=== PATIENT | male | born 1935 | race Caucasian/White ===

== ENCOUNTER → 2016-06-03 | Outpatient (CLI) | payer OTHER ==
[~2016-06-03] MED LIST: ALL300 PO; AMLO10TA4 PO; AMR2 PO; ASPI81TA21 PO; ATEN100T8 PO; DOXA2TAB PO; GLC500 PO; INSDGI SC; MAGNTAB17 PO; VALS320T PO
[2016-06-03 14:40] LABS: BASO % 0.4 %; BASO ABS # 0.05 K/uL (0-0.2); COMPLETE YES; EOS % 3.4 %; HEMATOCRIT 42.4 % (42-52); IG% 0.9 %; LYMPH % 18.1 %; LYMPH ABS # 2.34 K/uL (1.2-3.4); MEAN CELL VOLUME 89.3 fL (80-100); MEAN CORPUSCULAR HEMOGLOBIN 29.1 pg (25-34); MEAN CORPUSCULAR HGB CONC 32.5 g/dl (32-36); MONO % 7.3 %; NEUT % 69.9 %; PLATELET COUNT 218 K/uL (130-400); RED BLOOD COUNT 4.75 M/uL (4.7-6.1); WHITE BLOOD COUNT 12.93 K/uL (4.8-10.8)
[2016-06-03 14:58] LABS: ESTIMATED AVERAGE GLUCOSE 163 mg/dl; HA1C FLAG Normal (Normal)
[2016-06-03 15:20] LABS: AST/SGOT 22 U/L (15-37); BLOOD UREA NITROGEN 23 mg/dl (7-18); BUN/CREATININE RATIO 17.5 (10-20); CALCIUM 9.4 mg/dl (8.5-10.1); CARBON DIOXIDE 28 mmol/L (21-32); CHLORIDE 103 mmol/L (98-107); GLUCOSE 197 mg/dl (70-99); POTASSIUM 4.4 mmol/L (3.5-5.1); SODIUM 138 mmol/L (136-145); TRIGLYCERIDES 211 mg/dl (0-150); VERY LOW DENSITY LIPOPROT CALC 42 mg/dl
[2016-06-03 15:23] LABS: URINE PROTIEN/CREAT RATIO 0.3 (0-0.2); URINE TOTAL PROTEIN 63.9 mg/dl (0-11.9)
[2016-06-03 15:48] LABS: ALB/GLOB RATIO 0.9 (0.9-2); ALKALINE PHOSPHATASE 67 U/L (45-117); ALT/SGPT 26 U/L (12-78); CHOLESTEROL 107 mg/dl (0-200); CHOLESTEROL/HDL RATIO 2.6; HDL CHOLESTEROL 41 mg/dl; LDL CHOLESTEROL CALCULATED 24 mg/dl; THYROID STIMULATING HORMONE 0.832 uIu/ml (0.300-4.500)
== END | disposition home or self-care (01) ==
LOC: C.LABBC 10:21
PROVIDERS: ATTEND Internal Medicine Geriatric Medicine
DX: E11.9 Type 2 diabetes mellitus without complications (principal); I10 Essential (primary) hypertension; R35.1 Nocturia; K76.0 Fatty (change of) liver, not elsewhere classified; D64.9 Anemia, unspecified; I45.6 Pre-excitation syndrome; R80.9 Proteinuria, unspecified

== ENCOUNTER → 2016-09-09 | Outpatient (CLI) | payer OTHER ==
[2016-09-09 12:29] LABS: BASO % 0.3 %; BASO ABS # 0.04 K/uL (0-0.2); COMPLETE YES; HEMATOCRIT 39.4 % (42-52); IG% 0.8 %; LYMPH % 18.4 %; MEAN CELL VOLUME 87.6 fL (80-100); MEAN CORPUSCULAR HEMOGLOBIN 28.7 pg (25-34); MEAN CORPUSCULAR HGB CONC 32.7 g/dl (32-36); MEAN PLATELET VOLUME 11.7 fL (7.4-10.4); MONO % 7.3 %; NEUT % 69.2 %; PLATELET COUNT 204 K/uL (130-400); WHITE BLOOD COUNT 11.43 K/uL (4.8-10.8)
[2016-09-09 12:35] LABS: ESTIMATED AVERAGE GLUCOSE 148 mg/dl; HA1C FLAG Normal (Normal)
[2016-09-09 13:06] LABS: ALT/SGPT 24 U/L (12-78); BLOOD UREA NITROGEN 21 mg/dl (7-18); CALCIUM 9.1 mg/dl (8.5-10.1); CARBON DIOXIDE 28 mmol/L (21-32); CHLORIDE 104 mmol/L (98-107); GLUCOSE 178 mg/dl (70-99); POTASSIUM 4.3 mmol/L (3.5-5.1); SODIUM 137 mmol/L (136-145)
[2016-09-09 13:15] LABS: ALKALINE PHOSPHATASE 64 U/L (45-117); AST/SGOT 24 U/L (15-37); FERRITIN 64.6 ng/ml (8.0-388.0); TOTAL IRON BINDING CAPACITY 311 mcg/dl (250-450)
--- NOTE | 2016-09-16 13:06 | CODING QUERY MEDICAL NECESSITY ---
SUPPORTING DIAGNOSIS NEEDED A supporting diagnosis is required for the test/procedure performed on this patient in order for us to be reimbursed by the patient's insurance. Please provide a supporting diagnosis for the following test/procedure listed below next to the test name along with your signature. *If there is no additional diagnosis for this patient that would support the following test/procedure please document that below next to the test/procedure. Test(s)/Procedure(s) that require a supporting diagnosis: * VITAMIN B12 DIAGNOSIS: Provider Signature: Date: Thank you Chrystal Onia [employer] Once completed, please kindly fax back to [phone] For questions please call [phone]
== END | disposition home or self-care (01) ==
LOC: C.LABPBG 11:02
PROVIDERS: ATTEND Internal Medicine Geriatric Medicine
DX: E11.9 Type 2 diabetes mellitus without complications (principal); I10 Essential (primary) hypertension; M10.9 Gout, unspecified; K76.0 Fatty (change of) liver, not elsewhere classified; D64.9 Anemia, unspecified; I48.91 Unspecified atrial fibrillation; R06.02 Shortness of breath; R39.15 Urgency of urination

== ENCOUNTER → 2016-11-18 | Outpatient (CLI) | payer OTHER | END | disposition home or self-care (01) | LOC: C.LABPBG 13:31 | PROVIDERS: ATTEND Urology | DX: N40.1 Benign prostatic hyperplasia with lower urinary tract symptoms (principal); R10.9 Unspecified abdominal pain ==

== ENCOUNTER → 2017-06-16 | Outpatient (CLI) | payer OTHER ==
[~2017-06-16] MED LIST changes: +ASPI-319 PO; -ASPI81TA21 PO
[2017-06-16 14:06] LABS: BASO % 0.4 %; BASO ABS # 0.04 K/uL (0-0.2); EOS % 4.5 %; EOS ABS # 0.45 K/uL (0-0.5); HEMATOCRIT 39.7 % (42-52); HEMOGLOBIN 13.3 g/dL (14.0-18.0); IG# 0.04 K/uL (0.00-0.02); LYMPH % 17.8 %; LYMPH ABS # 1.79 K/uL (1.2-3.4); MEAN CELL VOLUME 87.4 fL (80-100); MEAN CORPUSCULAR HEMOGLOBIN 29.3 pg (25-34); MEAN CORPUSCULAR HGB CONC 33.5 g/dl (32-36); MEAN PLATELET VOLUME 12.3 fL (7.4-10.4); MONO % 7.1 %; MONO ABS # 0.72 K/uL (0.11-0.59); NEUT % 69.8 %; NEUT ABS # 7.03 K/uL (1.4-6.5); PLATELET COUNT 197 K/uL (130-400); RED CELL DISTRIBUTION WIDTH CV 14.5 % (11.5-14.5); RED CELL DISTRIBUTION WIDTH SD 46.1 fL (36.4-46.3); WHITE BLOOD COUNT 10.07 K/uL (4.8-10.8)
[2017-06-16 14:21] LABS: HEMOGLOBIN A1C 6.7 % (4.5-5.6)
[2017-06-16 14:33] LABS: ALBUMIN 3.6 gm/dl (3.4-5.0); ALT/SGPT 28 U/L (12-78); AST/SGOT 28 U/L (15-37); BLOOD UREA NITROGEN 28 mg/dl (7-18); CALCIUM 8.8 mg/dl (8.5-10.1); CARBON DIOXIDE 25 mmol/L (21-32); CREATININE 1.36 mg/dl (0.60-1.40); GLUCOSE 127 mg/dl (70-99); POTASSIUM 4.1 mmol/L (3.5-5.1); SODIUM 137 mmol/L (136-145)
[2017-06-16 14:43] LABS: ALKALINE PHOSPHATASE 62 U/L (45-117); CHOLESTEROL 100 mg/dl (0-200); LDL CHOLESTEROL CALCULATED 32 mg/dl; TOTAL PROTEIN 7.3 gm/dl (6.4-8.2)
== END | disposition home or self-care (01) ==
LOC: C.LABPBG 11:10
PROVIDERS: ATTEND Internal Medicine Geriatric Medicine
DX: E11.9 Type 2 diabetes mellitus without complications (principal); I10 Essential (primary) hypertension; D64.9 Anemia, unspecified; K76.0 Fatty (change of) liver, not elsewhere classified; R80.9 Proteinuria, unspecified; G62.9 Polyneuropathy, unspecified; I48.91 Unspecified atrial fibrillation; I35.0 Nonrheumatic aortic (valve) stenosis; R19.5 Other fecal abnormalities; M79.606 Pain in leg, unspecified

== ENCOUNTER → 2017-06-24 | Outpatient (CLI) | payer OTHER ==
--- NOTE | 2017-06-24 15:24 | DIAGNOSTIC IMAGING REPORT ---
ULTRASOUND VENOUS DOPPLER LWR EXT BILA CLINICAL HISTORY: M79.60 bilateral lower extremity pain COMPARISON STUDY: No previous studies for comparison. FINDINGS: Real-time and color flow Doppler imaging were performed. Flow was seen within the femoral, popliteal and calf veins with no intraluminal thrombus demonstrated. The saphenous vein is patent. IMPRESSION: No evidence of lower extremity DVT. Electronically signed by: Sherman Chavez M.D. 06/24/2017 3:23 PM Dictated Date/Time: 06/24/2017 3:22 PM
--- NOTE | 2017-06-24 19:50 | DIAGNOSTIC IMAGING REPORT ---
ART DOP LOWER EXT BILAT HISTORY: 81 years-old Male M79.606 Pain, lower extremity acute pain of the right lower extremity COMPARISON: Venous Doppler study of same day TECHNIQUE: Multiple real-time significant images of the bilateral lower extremity arterial structures were obtained assessing grayscale appearance, color and spectral flow FINDINGS: RIGHT: Triphasic waveforms are noted within the common femoral, profunda femoris, superficial femoral, popliteal, posterior tibial and anterior tibial arteries. Blunted biphasic waveforms are seen within the peroneal artery with biphasic flow seen within the dorsalis pedis artery. No vessel occlusion or significantly elevated peak systolic velocities identified. LEFT: Patent triphasic waveforms are noted within the common femoral, profunda femoris, and superficial femoral arteries. Mildly blunted triphasic waveforms within the popliteal artery. Mildly blunted biphasic waveforms within the posterior tibial artery. Triphasic waveforms within the anterior tibial artery. Blunted biphasic waveforms of the peroneal artery with triphasic flow within the dorsalis pedis artery. No evidence of vessel occlusion. Elevated peak systolic velocities within the dorsalis pedis artery measuring up to 150 cm/s. IMPRESSION: 1. Triphasic waveforms are seen above the level of the knees bilaterally. 2. Elevated peak systolic velocities about the left dorsalis pedis artery suggests underlying peripheral vascular disease. 3. No evidence of arterial occlusion. The above report was generated using voice recognition software. It may contain grammatical, syntax or spelling errors. Electronically signed by: Joe Barkley M.D. 06/24/2017 7:49 PM Dictated Date/Time: 06/24/2017 7:43 PM
== END | disposition home or self-care (01) ==
LOC: C.ULTR 13:43
PROVIDERS: ATTEND Internal Medicine Geriatric Medicine
DX: M79.606 Pain in leg, unspecified (principal)

== ENCOUNTER 2018-06-10 11:50 | Observation (INO) ==
[2018-06-10] MEDS ORDERED: ASPIRIN CHEW 324 MG PO STA (12:08)
[2018-06-10 12:52] LABS: Basophils # (auto) 0.04 K/uL (0-0.2); Basophils % (auto) 0.3 %; Hemoglobin 12.8 g/dL (14.0-18.0); Immature Granulocytes # (auto) 0.06 K/uL (0.00-0.02); Immature Granulocytes % (auto) 0.5 %; Lymphocytes # (auto) 1.84 K/uL (1.2-3.4); Lymphocytes % (auto) 14.8 %; Mean Corpuscular Hgb Conc 32.8 g/dL (32-36); Mean Corpuscular Volume 84.6 fL (80-100); Monocytes # (auto) 0.79 K/uL (0.11-0.59); Monocytes % (auto) 6.4 %; Neutrophils # (auto) 9.21 K/uL (1.4-6.5); Platelet Count 228 K/uL (130-400); RDW Coefficient of Variation 15.7 % (11.5-14.5); RDW Standard Deviation 48.5 fL (36.4-46.3); Red Blood Count 4.61 M/uL (4.7-6.1); White Blood Count 12.44 K/uL (4.8-10.8)
--- NOTE | 2018-06-10 12:54 | XRay Report ---
XR chest 1V portable CLINICAL HISTORY: Chest Pain dyspnea COMPARISON STUDY: 06/21/2012 FINDINGS: Moderate cardiomegaly. Prominent pulmonary vasculature. Unchanging parenchymal prominence l bonny bases. IMPRESSION: Cardiomegaly with findings of developing congestive heart failure The above report was generated using voice recognition software. It may contain grammatical, syntax or spelling errors. Electronically signed by: Ld Okeefe M.D. 06/10/2018 12:52 PM
[2018-06-10 13:08] LABS: Appearance Urine Clear (Clear); Bacteria Urine Automated Negative (Negative); Bilirubin Urine Negative (Negative); Blood Urine Negative (Negative); Color Urine Dark Yellow; Epithelial Cell Urine Auto >30 /lpf (0-5); Glucose Urine UA Negative (Negative); Ketones Urine Trace (Negative); Leukocyte Esterase Urine Negative (Negative); Nitrite Urine Negative (Negative); Protein Urine Trace (Negative); RBC Urine Automated 0-4 /hpf (0-4); Specific Gravity Urine 1.024 (1.000-1.030); Urobilinogen Urine Negative (Negative); pH Urine 5.5 (4.5-7.5)
[2018-06-10 13:09] LABS: INR 1.1 (0.9-1.1); Partial Thromboplastin Ratio 0.9; Partial Thromboplastin Time 24.6 Seconds (21.0-31.0); Prothrombin Time 10.8 Seconds (9.0-12.0)
[2018-06-10 13:14] LABS: Alanine Aminotransferase 22 U/L (12-78); Albumin Level 3.7 gm/dl (3.4-5.0); Aspartate Aminotransferase 25 U/L (15-37); BUN Creatinine Ratio 16.8 (10-20); Blood Urea Nitrogen 28 mg/dl (7-18); Calcium 9.6 mg/dl (8.5-10.1); Carbon Dioxide 27 mmol/L (21-32); Chloride 105 mmol/L (98-107); Est GFR (African American) 44.5; Est GFR (Non-African American) 38.4; Glucose 112 mg/dl (70-99); Potassium 4.6 mmol/L (3.5-5.1); Sodium 138 mmol/L (136-145)
[2018-06-10 13:19] LABS: Albumin Globulin Ratio 0.9 (0.9-2); Alkaline Phosphatase 73 U/L (45-117); Bilirubin,Total 0.7 mg/dl (0.2-1); Globulin 4.1 gm/dl (2.5-4.0); Total Protein 7.8 gm/dl (6.4-8.2)
--- NOTE | 2018-06-10 14:36 | History & Physical Report ---
Date of Service June 10, 2018 Assessment & Plan (1) Severe aortic stenosis: Patient is to be aortic stenosis per Dr. Morris with a valve area of 0.8 cm. His dyspnea could be associate with his valve. It is also unclear whether he had any ischemic work-up in the past. Renal will be consulted troponins will be trended 1 dose of Lasix 20 mg will be given supplemental oxygen Given the new onset left bundle branch block consideration for stress testing will be the discretion of Dr. Morris (2) Diabetes: Patient to continue basal bolus insulin he was oral hypoglycemic agents will be stopped which include glimepiride and metformin (3) Paroxysmal A-fib: Patient has a history of Parkinson White with ablation he typically is rate controlled with atenolol did not seem to be formally anticoagulated this time (4) Dyslipidemia: pt typically takes atorvostatin (5) COPD (chronic obstructive pulmonary disease): pt will remain on symbicort, his copd may also impact his dyspnea on exertion (6) BPH (benign prostatic hyperplasia): pt is without lower urinary symptoms, doxasin and finestaride (7) DVT prophylaxis: heparin sc History of Present Illness Primary Care Provider: Ezio Thao MD Patient presents emergency department with increased dyspnea on exertion. He presented to his primary care doctor's office where he complained of this complaint and had a new left bundle branch block seen on EKG. he was transferred to the ER for concerns of this being ischemic or in origin. The patient fortunately has been following with Dr. Morris for evaluation of aortic stenosis as he is a valvular area of 0.8 cm. Most recent echo from April of this year. Son is present and states that his dyspnea is increased of late. Chest x-ray confirms pulmonary edema, the patient denies having any recent chest pain or syncopal episodes. Allergies Allergy/AdvReac Type Severity Reaction Status Date / Time Iodinated Contrast- Oral and Allergy Unknown HIVES Verified 06/10/18 13:05 IV Dye Home Medications Home Medications Medication Instructions Recorded Confirmed Type amlodipine 10 mg PO DAILY 06/10/18 06/10/18 History aspirin [Aspir-81] 81 mg PO DAILY 06/10/18 06/10/18 History atenolol 100 mg PO DAILY 06/10/18 06/10/18 History atorvastatin 10 mg PO DAILY 06/10/18 06/10/18 History budesonide-formoterol [Symbicort] 1 puff INHALATION BID 06/10/18 06/10/18 History doxazosin 2 mg PO DAILY 06/10/18 06/10/18 History ergocalciferol (vitamin D2) 50,000 unit PO DAILY 06/10/18 06/10/18 History [Vitamin D2] finasteride 5 mg PO DAILY 06/10/18 06/10/18 History fluticasone propionate 2 spray INTRANASAL DAILY 06/10/18 06/10/18 History glimepiride 4 mg PO DAILY 06/10/18 06/10/18 History insulin glargine [Basaglar KwikPen 1 dose SUBCUT UD 06/10/18 06/10/18 History U-100 Insulin] metformin 1,000 mg PO DAILY 06/10/18 06/10/18 History Past Med/Surg History Medical History Kujnr-Xyckmvmfk-Mared (WPW) pattern (Chronic) BPH (benign prostatic hyperplasia) COPD (chronic obstructive pulmonary disease) Diabetes Dyslipidemia Paroxysmal A-fib Severe aortic stenosis Family History Unknown Cancer Social History Feels Safe at Home: Yes Smoking Status: Never smoker Review of Systems Review of Systems: ROS: well nourished well developed. Morbidly obese No double vision blurry vision No problems with speech or swallowing No palpitations, chest pain or pressure No Wheezing reproducible dyspnea on exertion No abdominal pain nausea vomiting diarrhea No burning urine urine frequency or changes in color No focal joint pain or muscle pain No skin rashes or oral lesions No unusual bruising or bleeding No focused back pain or numbness or loss of strength No changes in memory or confusion Physical Exam Physical Exam: The patient appeared well nourished and normally developed. Vital signs as documented. Head exam is unremarkable. normocephalic, atraumatic Neck is with minor jugular venous distension, thyromegaly, or lymphademopathy Lungs are bibasilar crackles are heard Cardiac exam reveals a soft ejection murmur is heard. First and second heart sounds normal. Abdominal exam reveals normal bowel sounds, no masses, no organomegaly Extremities are minorly edematous and both pedal pulses are present Neurologic exam is A&Ox3, no focal deficits, strength is equal bilateral Psychologically seems neither anxious or depressed Skin is warm Dry without bruises or lesions Results & Data Vital Signs (Past 12 Hours) Vital Signs Temp Pulse Resp BP Pulse Ox 06/10/18 13:32 78 21 110/78 95 06/10/18 13:30 64 20 96 06/10/18 13:01 75 15 95/72 L 96 06/10/18 13:00 76 14 96 06/10/18 12:57 95 06/10/18 12:34 75 23 107/69 97 06/10/18 12:32 73 16 06/10/18 12:09 72 20 96 06/10/18 12:06 72 18 98 06/10/18 12:01 79 17 140/82 97 06/10/18 11:57 37.6 C H 76 16 140/82 96 Diagnostic Findings Cardiomegaly with findings of developing congestive heart failure ECG with Afib LBBB
[2018-06-10] MEDS ORDERED: GLUCOSE 10 TABS/TUBE PO PRN (16:00)
[2018-06-10] MEDS ORDERED: GLUCAGON FOR INJ 1 MG VIAL SQ PRN (16:00)
[2018-06-10] MEDS ORDERED: CARBOHYDRATES FOR HYPOGLYCEMIA PO PRN (16:00)
[2018-06-10] MEDS ORDERED: ACETAMINOPHEN 325 MG TAB PO PRN (16:00)
[2018-06-10] MEDS ORDERED: NITROGLYCERIN SL 0.4 MG/TAB TAB SL PRN (16:00)
[2018-06-10] MEDS ORDERED: GLUCOSE 40% GEL 15 GM TUBE PO PRN (16:00)
[2018-06-10] MEDS ORDERED: ONDANSETRON INJ 2 MG/ML 2 ML VIAL IV PRN (16:00)
[2018-06-10] MEDS ORDERED: ALUMINUM/MAGNESIUM SUSP 30 ML UDC PO PRN (16:00)
[2018-06-10] MEDS ORDERED: DEXTROSE 50% 50 ML SYRINGE IV PRN (16:00)
[2018-06-10] MEDS ORDERED: FUROSEMIDE 20 MG in SYRINGE 0 ML IV ONE (16:15)
--- NOTE | 2018-06-10 16:49 | Emergency Department Note ---
Entered by Aurea Head acting as a scribe for Keegan Berg DO History of Present Illness General Chief complaint: Chest Pain Stated complaint: HEART Source: patient History of Present Illness Provider complaint: shortness of breath with exertion Onset (ago): week(s) (over the last couple of weeks) Location: chest Maximum Pain Intensity: 0 Quality: + other (shortness of breath ) Associated symptoms: + denies other symptoms (denies weight gain, abdominal pain, back pain, trouble with urination) and + diaphoresis; no chest pain and no fever/chills The patient is an 82 year old male who presents to the Emergency Department with complaints of shortness of breath with exertion over the last couple of weeks. The patient states that laying flat does not exacerbate his shortness of breath. He also reports having cold sweats over the last 2 weeks. The patient denies having chest pain, weight gain, back pain, abdominal pain, a fever, or trouble with urination. The patient states that he takes a baby aspirin every day and reports that he took one today. The patient states that he saw his doctor today and was referred here. The patient denies a history of a stress test or a heart catheterization. He states that he is not normally in atrial fibrillation. Home Medications Home Medications Medication Instructions Recorded Confirmed Type amlodipine 10 mg PO DAILY 06/10/18 06/10/18 History aspirin [Aspir-81] 81 mg PO DAILY 06/10/18 06/10/18 History atenolol 100 mg PO DAILY 06/10/18 06/10/18 History atorvastatin 10 mg PO DAILY 06/10/18 06/10/18 History budesonide-formoterol [Symbicort] 1 puff INHALATION BID 06/10/18 06/10/18 History doxazosin 2 mg PO DAILY 06/10/18 06/10/18 History ergocalciferol (vitamin D2) 50,000 unit PO Q7D 06/10/18 06/10/18 History [Vitamin D2] finasteride 5 mg PO DAILY 06/10/18 06/10/18 History fluticasone propionate 2 spray INTRANASAL DAILY 06/10/18 06/10/18 History glimepiride 4 mg PO DAILY 06/10/18 06/10/18 History insulin glargine [Basaglar KwikPen 22 units SUBCUT UD 06/10/18 06/10/18 History U-100 Insulin] metformin 1,000 mg PO DAILY 06/10/18 06/10/18 History Allergies Allergy/AdvReac Type Severity Reaction Status Date / Time Iodinated Contrast- Oral and Allergy Unknown HIVES Verified 06/10/18 13:05 IV Dye Past Med/Surg History Medical History Pdfhs-Zjxavlysm-Hyaol (WPW) pattern (Chronic) BPH (benign prostatic hyperplasia) COPD (chronic obstructive pulmonary disease) Diabetes Dyslipidemia Paroxysmal A-fib Severe aortic stenosis Social History Feels Safe at Home: Yes Smoking Status: Never smoker Review of Systems See HPI for pertinent positives & negatives. and A total of 10 systems reviewed and were otherwise negative Physical Exam Vital Signs Vital Signs - 24 hr 06/10/18 11:57 06/10/18 12:01 06/10/18 12:05 Temperature 37.6 C H Temperature Source Oral Sepsis Recent Fever Within 48 Hours No Sepsis Action Taken by Nursing No Action Required Pulse Rate 76 79 Pulse Rate from SpO2 Sensor 74 Respiratory Rate 16 17 Respiratory Effort / Characteristics Non-Labored Non-Labored Respiratory Depth Normal Normal Respiratory Pattern Regular Blood Pressure 140/82 140/82 Blood Pressure Mean 101 101 Pulse Oximetry 96 97 Oxygen Delivery Method Room Air 06/10/18 12:06 06/10/18 12:09 06/10/18 12:32 Temperature Temperature Source Sepsis Recent Fever Within 48 Hours Sepsis Action Taken by Nursing Pulse Rate 72 72 73 Pulse Rate from SpO2 Sensor 69 Respiratory Rate 18 20 16 Respiratory Effort / Characteristics Respiratory Depth Respiratory Pattern Blood Pressure Blood Pressure Mean Pulse Oximetry 98 96 Oxygen Delivery Method Room Air 06/10/18 12:34 06/10/18 12:57 06/10/18 13:00 Temperature Temperature Source Sepsis Recent Fever Within 48 Hours Sepsis Action Taken by Nursing Pulse Rate 75 76 Pulse Rate from SpO2 Sensor 77 73 Respiratory Rate 23 14 Respiratory Effort / Characteristics Respiratory Depth Respiratory Pattern Blood Pressure 107/69 Blood Pressure Mean 81 Pulse Oximetry 97 95 96 Oxygen Delivery Method Room Air 06/10/18 13:01 06/10/18 13:30 06/10/18 13:32 Temperature Temperature Source Sepsis Recent Fever Within 48 Hours Sepsis Action Taken by Nursing Pulse Rate 75 64 78 Pulse Rate from SpO2 Sensor 74 62 78 Respiratory Rate 15 20 21 Respiratory Effort / Characteristics Respiratory Depth Respiratory Pattern Blood Pressure 95/72 L 110/78 Blood Pressure Mean 79 88 Pulse Oximetry 96 96 95 Oxygen Delivery Method Room Air Room Air 06/10/18 13:33 06/10/18 14:00 06/10/18 14:02 Temperature Temperature Source Sepsis Recent Fever Within 48 Hours Sepsis Action Taken by Nursing Pulse Rate 71 75 70 Pulse Rate from SpO2 Sensor 71 77 70 Respiratory Rate 23 19 17 Respiratory Effort / Characteristics Respiratory Depth Respiratory Pattern Blood Pressure 164/117 H Blood Pressure Mean 132 Pulse Oximetry 96 94 96 Oxygen Delivery Method 06/10/18 14:22 06/10/18 14:30 06/10/18 14:31 Temperature Temperature Source Sepsis Recent Fever Within 48 Hours Sepsis Action Taken by Nursing Pulse Rate 72 81 75 Pulse Rate from SpO2 Sensor 77 82 78 Respiratory Rate 19 20 16 Respiratory Effort / Characteristics Respiratory Depth Respiratory Pattern Blood Pressure 117/83 133/70 Blood Pressure Mean 94 91 Pulse Oximetry 97 98 98 Oxygen Delivery Method GENERAL: Patient is awake, alert, and in no acute distress.Patient is resting comfortably and showing no signs of anxiety EYES: The conjunctivae are clear. The pupils are round and reactive. EARS, NOSE, MOUTH AND THROAT: The nose is without any evidence of any deformity. Mucous membranes are moist.Tongue is midline NECK: The neck is nontender and supple. RESPIRATORY: Diminished at both bases. Rales at the left base. CARDIOVASCULAR: Irregular rhythm. No definite murmur. GASTROINTESTINAL: The abdomen is soft. Bowel sounds are present in all quadrants. Abdomen is nontender. MUSCULOSKELETAL/EXTREMITIES: There is no evidence of gross deformity. Full range of motion is noted in the hips and shoulders. SKIN: There is no obvious evidence of any rash. There are no petechiae, pallor or cyanosis noted. Pedal edema bilaterally. NEUROLOGIC: Patient is awake alert and oriented x3. Course 1207: The patient was evaluated in room C1B. A history and physical were performed. 1302: I reviewed the patient's note from the clinic. 1337: I discussed the patient's case with Dr. Camila Munson who will ev aluate the patient for further management. 1350: I updated the patient who verbalized agreement and understanding of the treatment plan. Consultations Consultation #1: Dr. Camila Munson Time: 13:37 Administered Medications Discontinued Medications Aspirin (Aspirin) 324 mg PO NOW STA Stop: 06/10/18 12:09 Last Admin: 06/10/18 12:26 Dose: 324 mg Documented by: [id number] Medical Decision Making Differential Diagnosis Differential diagnosis: Etiologies such as infections, reactive airway disease, COPD, pneumonia, pleural effusion, pulmonary edema, ARDS, pneumothorax, CHF, cardiac ischemia, cardiac tamponade, dysrhythmia, anemia, pulmonary embolism, musculoskeletal, gastrointestinal process, as well as others were entertained. Medical Records Attestation: I reviewed the patient's medical records. Home Medications Current Medication List: was personally reviewed by me Laboratory Data Attestation: I reviewed the patient's lab results. Result diagrams: 06/10/18 12:32 06/10/18 12:32 Lab Results 06/10/18 06/10/18 06/10/18 Range/Units 12:32 12:32 12:32 WBC 12.44 H (4.8-10.8) K/uL RBC 4.61 L (4.7-6.1) M/uL Hgb 12.8 L (14.0-18.0) g/dL Hct 39.0 L (42-52) % MCV 84.6 (80-100) fL MCH 27.8 (25-34) pg MCHC 32.8 (32-36) g/dL RDW Std Deviation 48.5 H (36.4-46.3) fL RDW Coeff of Tyson 15.7 H (11.5-14.5) % Plt Count 228 (130-400) K/uL MPV 12.0 H (7.4-10.4) fL Immature Gran % (Auto) 0.5 % Neut % (Auto) 74.0 % Lymph % (Auto) 14.8 % Bullock % (Auto) 6.4 % Eos % (Auto) 4.0 % Baso % (Auto) 0.3 % Immature Gran # (Auto) 0.06 H (0.00-0.02) K/uL Neut # (Auto) 9.21 H (1.4-6.5) K/uL Lymph # (Auto) 1.84 (1.2-3.4) K/uL Bullock # (Auto) 0.79 H (0.11-0.59) K/uL Eos # (Auto) 0.50 (0-0.5) K/uL Baso # (Auto) 0.04 (0-0.2) K/uL PT 10.8 (9.0-12.0) Seconds INR 1.1 (0.9-1.1) APTT 24.6 (21.0-31.0) Seconds PTT Ratio 0.9 Sodium 138 (136-145) mmol/L Potassium 4.6 (3.5-5.1) mmol/L Chloride 105 (98-107) mmol/L Carbon Dioxide 27 (21-32) mmol/L Anion Gap 6.0 (3-11) BUN 28 H (7-18) mg/dl Creatinine 1.65 H (0.6-1.4) mg/dl Est Cr Clr Drug Dosing Not Reportable Est GFR ( Amer) 44.5 Est GFR (Non-Af Amer) 38.4 BUN/Creatinine Ratio 16.8 (10-20) Glucose 112 H (70-99) mg/dl Calcium 9.6 (8.5-10.1) mg/dl Total Bilirubin 0.7 (0.2-1) mg/dl AST 25 (15-37) U/L ALT 22 (12-78) U/L Alkaline Phosphatase 73 (45-117) U/L Troponin I 0.020 (0-0.045) ng/ml Total Protein 7.8 (6.4-8.2) gm/dl Albumin 3.7 (3.4-5.0) gm/dl Globulin 4.1 H (2.5-4.0) gm/dl Albumin/Globulin Ratio 0.9 (0.9-2) Lipase 173 (73-393) U/L Urine Color Urine Appearance (Clear) Urine pH (4.5-7.5) Ur Specific [place] (1.000-1.030) Urine Protein (Negative) Urine Glucose (UA) (Negative) Urine Ketones (Negative) Urine Blood (Negative) Urine Nitrite (Negative) Urine Bilirubin (Negative) Urine Urobilinogen (Negative) Ur Leukocyte Esterase (Negative) Urine WBC (Auto) (0-5) /hpf Urine RBC (Auto) (0-4) /hpf U Hyaline Cast (Auto) (0-5) /lpf U Epithel Cells (Auto) (0-5) /lpf Urine Bacteria (Auto) (Negative) 05/02/19 Range/Units 12:32 WBC (4.8-10.8) K/uL RBC (4.7-6.1) M/uL Hgb (14.0-18.0) g/dL Hct (42-52) % MCV (80-100) fL MCH (25-34) pg MCHC (32-36) g/dL RDW Std Deviation (36.4-46.3) fL RDW Coeff of Tyson (11.5-14.5) % Plt Count (130-400) K/uL MPV (7.4-10.4) fL Immature Gran % (Auto) % Neut % (Auto) % Lymph % (Auto) % Bullock % (Auto) % Eos % (Auto) % Baso % (Auto) % Immature Gran # (Auto) (0.00-0.02) K/uL Neut # (Auto) (1.4-6.5) K/uL Lymph # (Auto) (1.2-3.4) K/uL Bullock # (Auto) (0.11-0.59) K/uL Eos # (Auto) (0-0.5) K/uL Baso # (Auto) (0-0.2) K/uL PT (9.0-12.0) Seconds INR (0.9-1.1) APTT (21.0-31.0) Seconds PTT Ratio Sodium (136-145) mmol/L Potassium (3.5-5.1) mmol/L Chloride (98-107) mmol/L Carbon Dioxide (21-32) mmol/L Anion Gap (3-11) BUN (7-18) mg/dl Creatinine (0.6-1.4) mg/dl Est Cr Clr Drug Dosing Est GFR ( Amer) Est GFR (Non-Af Amer) BUN/Creatinine Ratio (10-20) Glucose (70-99) mg/dl Calcium (8.5-10.1) mg/dl Total Bilirubin (0.2-1) mg/dl AST (15-37) U/L ALT (12-78) U/L Alkaline Phosphatase (45-117) U/L Troponin I (0-0.045) ng/ml Total Protein (6.4-8.2) gm/dl Albumin (3.4-5.0) gm/dl Globulin (2.5-4.0) gm/dl Albumin/Globulin Ratio (0.9-2) Lipase (73-393) U/L Urine Color Dark Yellow Urine Appearance Clear (Clear) Urine pH 5.5 (4.5-7.5) Ur Specific [place] 1.024 (1.000-1.030) Urine Protein Trace H (Negative) Urine Glucose (UA) Negative (Negative) Urine Ketones Trace H (Negative) Urine Blood Negative (Negative) Urine Nitrite Negative (Negative) Urine Bilirubin Negative (Negative) Urine Urobilinogen Negative (Negative) Ur Leukocyte Esterase Negative (Negative) Urine WBC (Auto) 1-5 (0-5) /hpf Urine RBC (Auto) 0-4 (0-4) /hpf U Hyaline Cast (Auto) 5-10 H (0-5) /lpf U Epithel Cells (Auto) >30 H (0-5) /lpf Urine Bacteria (Auto) Negative (Negative) Imaging Data Radiologist's Impression: Radiology results as stated below per my review and the radiologist's interpretation: XR chest 1V portable CLINICAL HISTORY: Chest Pain dyspnea COMPARISON STUDY: 06/21/2012 FINDINGS: Moderate cardiomegaly. Prominent pulmonary vasculature. Unchanging parenchymal prominence lung bases. IMPRESSION: Cardiomegaly with findings of developing congestive heart failure The above report was generated using voice recognition software. It may contain grammatical, syntax or spelling errors. Electronically signed by: Ld Okeefe M.D. 06/10/2018 12:52 PM ECG Data Attestation: I personally reviewed and interpreted this ECG as follows: Indication: SOB/dyspnea Rate (beats per minute): 72 Rhythm: atrial fibrillation Findings: + LBBB; no PVC Comparison ECG Date: from (06/21/12) Change: the following changes noted Blood Pressure Blood Pressure Findings: Normal blood pressure MDM Narrative The patient is an 82-year-old male who was sent to the emergency department from his primary care physician's office for an evaluation of chest discomfort. The patient was also having dyspnea on exertion. He was found to have signs of volume overload. He was also found to have an abnormal EKG with paroxysmal atrial fibrillation and a new left bundle branch block. I discussed the patient's laboratory and radiographic studies with him. Because of his condition I also discussed his case with the on-call [facility] hospitalist group. They have agreed to evaluate patient in the emergency department for further management and disposition. Impression & Plan Chest pain, New onset left bundle branch block (LBBB), Edema, CHF (congestive heart failure), Paroxysmal A-fib Discharge Plan Visit Data *Final* Discharge Date/Time: 06/10/18 16:00 Chief Complaint: Chest Pain Stated Complaint: HEART ED Provider: Keegan Berg Discharge Problem: Chest pain, New onset left bundle branch block (LBBB), Edema, CHF (congestive heart failure), Paroxysmal A-fib Patient Disposition: Admitted As Inpatient Discharge Instructions Interventions: ED Discharge Assessment Last Done: 06/10/18 16:00 Discharge Problem: Chest pain Qualifiers: Chest pain type: unspecified Qualified Code(s): R07.9 - Chest pain, unspecified Edema Qualifiers: Edema type: unspecified Qualified Code(s): R60.9 - Edema, unspecified CHF (congestive heart failure) Qualifiers: Heart failure type: unspecified The scribe's documentation has been prepared under my direction and personally reviewed by me in its entirety. I confirm that the note above accurately reflects all work, treatment, procedures, and medical decision making performed by me.
[2018-06-10] MEDS: INSULIN ASPART 100 UNITS/ML 3 ML PEN SC SCH ×2 (18:49→20:43)
[2018-06-10] MEDS: BUDESONIDE/FORMOTEROL FUMARATE 80/4.5 60 PUFFS/INHALER INH SCH (20:42)
[2018-06-10] MEDS: HEPARIN SOD 5,000 UNIT/0.5 ML VIAL SQ SCH (20:43)
[2018-06-10] MEDS ORDERED: INSULIN GLARGINE SOLOSTAR 100 UNITS/ML 3 ML PEN SQ SCH (21:00)
[2018-06-11 07:20] LABS: BUN Creatinine Ratio 22.7 (10-20); Calcium 8.8 mg/dl (8.5-10.1); Creatinine Clr Calc Pharmacy 60.2 ml/min; Est GFR (African American) 67.4; Est GFR (Non-African American) 58.1; Potassium 3.5 mmol/L (3.5-5.1)
[2018-06-11 07:22] LABS: Estimated Average Glucose 123 mg/dl; Hemoglobin A1C 5.9 % (4.5-5.6)
[2018-06-11] MEDS: INSULIN ASPART 100 UNITS/ML 3 ML PEN SC SCH ×2 (07:48→12:02)
[2018-06-11] MEDS: HEPARIN SOD 5,000 UNIT/0.5 ML VIAL SQ SCH (07:50)
[2018-06-11] MEDS: BUDESONIDE/FORMOTEROL FUMARATE 80/4.5 60 PUFFS/INHALER INH SCH (07:51)
[2018-06-11 08:01] VITALS: O2SAT 96
[2018-06-11] MEDS ORDERED: FINASTERIDE 5 MG TAB PO SCH (09:00)
[2018-06-11] MEDS ORDERED: ASPIRIN 81 MG ECTAB PO SCH ×2 (09:00)
[2018-06-11] MEDS ORDERED: FLUTICASONE PROPIONATE NA SPR 16 GM BTL SCH (09:00)
[2018-06-11] MEDS ORDERED: AMLODIPINE BESYLATE 5 MG TAB PO SCH (09:00)
[2018-06-11] MEDS ORDERED: ATENOLOL 50 MG TABLET PO SCH (09:00)
[2018-06-11] MEDS ORDERED: ERGOCALCIFEROL 50,000 UNITS CAP PO SCH (09:00)
[2018-06-11] MEDS ORDERED: ATORVASTATIN 10 MG TAB PO SCH (09:00)
[2018-06-11] MEDS ORDERED: PERFLUTREN LIPID MICROSPHERE (DEFINITY) IV ONE (09:21)
[2018-06-11 12:13] VITALS: BP 112/65; PULSE 51; TEMP 99.7
--- NOTE | 2018-06-11 13:46 | Cardiology Consultation ---
Date of Consultation June 11, 2018 Assessment & Plan (1) CHF (congestive heart failure): The patient was admitted with mildly decompensated acute on chronic diastolic CHF. He responded well to intravenous diuretics. However, it is now time to proceed with an aortic valve replacement. (2) Aortic stenosis, severe: Severe aortic stenosis with a valve area 0.8 cm2 on his echocardiogram last month. His valvular lesion is now symptomatic and we will proceed with an evaluation for a TAVR at [facility]. (3) CAD (coronary artery disease): The patient had an abnormal nuclear stress test in November 1999 which noted an infero posterior defect. At no time as the patient's symptoms of coronary artery disease. He will have a pre TAVR cardiac catheterization. Continue atenolol, amlodipine, aspirin, and atorvastatin. (4) Permanent atrial fibrillation: The patient discontinued Xarelto on 2 separate occasions as a cause hematuria. He does have an upcoming urologic evaluation. He is not interested in re starting anticoagulation and understands the consequences of his decision. History of Present Illness Attending Physician: Bret Oates MD History of Present Illness Mr. Amador is an 82-year-old male admitted yesterday with decompensated diastolic CHF. Discussed lesions order to assist in his management. Of note, the patient is well known to me from the outpatient setting. The patient was in his usual state of health until 2-3 days prior to presentation. He began to note significant progression of his exertional dyspnea. He became dyspneic with very minimal physical activity and therefore, presented to the emergency room. Evaluation here included a chest x-ray which noted interstitial edema and hospitalization was recommended. The patient has a known history of severe aortic stenosis. He has been followed closely with outpatient echocardiograms. Most recent echocardiogram was performed in early May and noted normal left ventricular systolic function, mild LVH, diastolic dysfunction, and severe aortic stenosis with a valve area of 0.8 cm2. The patient has never experienced exertional angina pectoris. He further denies syncope, presyncope, PND, orthopnea, lower extremity edema, and claudication. The patient does carry history of permanent atrial fibrillation. He does not experience palpitations with his dysrhythmia. The patient was tolerating long- term anticoagulation with Xarelto until last fall when he developed significant hematuria. He discontinued anticoagulation on his home. He attempted to restart that at half dose in February of this year, however, again developed hematuria. The patient refuses to take long-term anticoagulation. Does have an upcoming appointment with Urology. Currently, patient is resting comfortably in bed without complaints. Past medical history 1. Presumed coronary artery disease-see above 2. Severe aortic stenosis-0.8 cm2, May 2018 3. Hypertension 4. Mild LVH 5. Diastolic dysfunction 6. Hypercholesterolemia 7. 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 Diabetes mellitus 10. Chronic renal failure 11. Gout 12. BPH 13. DJD 14. History of depression 15. Right hydrocele repair 16. Generalized polyneuropathy Social history Single, never Lives alone No tobacco or alcohol Family history Mother at 82 from CHF Father at 80 from unknown causes Review of systems A 10 point review of systems was undertaken and negative except for that described above. Allergies Allergy/AdvReac Type Severity Reaction Status Date / Time Iodinated Contrast- Oral and Allergy Unknown HIVES Verified 06/10/18 13:05 IV Dye Home Medications Home Medications Medication Instructions Recorded Confirmed Type Jed HancockTobias U-100 Insulin 22 units SUBCUT UD 06/10/18 06/10/18 History Symbicort 1 puff INHALATION BID 06/10/18 06/10/18 History amlodipine 10 mg PO DAILY 06/10/18 06/10/18 History aspirin [Aspir-81] 81 mg PO DAILY 06/10/18 06/10/18 History atenolol 100 mg PO DAILY 06/10/18 06/10/18 History atorvastatin 10 mg PO DAILY 06/10/18 06/10/18 History doxazosin 2 mg PO DAILY 06/10/18 06/10/18 History ergocalciferol (vitamin D2) 50,000 unit PO Q7D 06/10/18 06/10/18 History [Vitamin D2] finasteride 5 mg PO DAILY 06/10/18 06/10/18 History fluticasone propionate 2 spray INTRANASAL DAILY 06/10/18 06/10/18 History glimepiride 4 mg PO DAILY 06/10/18 06/10/18 History metformin 1,000 mg PO DAILY 06/10/18 06/10/18 History Patient History Social History Preferred Language: Kinyarwanda Communication Ability: Effective Beliefs That Will Affect Care: None Current Living Situation: Other Current Living Situation Comment: FRIEND CELSO Other Information That Helps Us Care for You: No Feels Safe at Home: Yes Safety Concerns: Feels Safe At This Time Smoking Status: Never smoker Hx Alcohol Use: No Hx Substance Use: No Physical Exam Physical Exam: In general is an obese white male seated in the bedside chair without complaints. HEENT exam is negative. Neck is supple with delayed and prolonged carotid upstrokes. No obvious transmitted murmur. No JVD. Car diovascular exam reveals an irregular rhythm with distant heart sounds. A 2/6 crescendo decrescendo systolic murmur is heard at the base. S2 is not audible at the apex. Lungs are clear without rales, rhonchi or wheezes. Abdomen is obese without bruits. Extremities reveal intact radial artery pulses bilaterally. Trace 1+ pretibial edema is noted. Results & Data Vital Signs (Past 12 Hours) Vital Signs Temp Pulse Pulse Resp BP Pulse Ox 06/11/18 12:12 37.6 C H 51 L 18 112/65 96 06/11/18 11:30 37.6 C H 70 18 112/65 96 06/11/18 08:00 37.3 C 88 69 18 109/63 96 Laboratory Results CBC notes a hemoglobin of 12.8, hematocrit 39.0, white count 12.4, platelet count [id number]. Electrolytes noted sodium 137, potassium 3.5, chloride 104, bicarb 28, BUN 27, creatinine 1.17, glucose of 71. Initial troponin was 0.02 with follow-up does of 0.032 and 0.033. INR is 1.1. Diagnostic Findings EKG notes atrial fibrillation with a controlled ventricular response. There is incomplete left bundle-branch block. Chest x-ray shows cardiomegaly and interstitial edema. (1) CHF (congestive heart failure) Heart failure type: unspecified
--- NOTE | 2018-06-11 16:29 | Discharge Summary ---
Date of Service June 11, 2018 Admission HPI Per Admitting Provider Patient presents emergency department with increased dyspnea on exertion. He presented to his primary care doctor's office where he complained of this complaint and had a new left bundle branch block seen on EKG. he was transferred to the ER for concerns of this being ischemic or in origin. The patient fortunately has been following with Dr. Morris for evaluation of aortic stenosis as he is a valvular area of 0.8 cm. Most recent echo from April of this year. Son is present and states that his dyspnea is increased of late. Chest x-ray confirms pulmonary edema, the patient denies having any recent chest pain or syncopal episodes. Principal Diagnosis Aortic stenosis Discharge Exam Constitutional WD/WN, vitals as above Eyes EOM intact bilaterally; no conjunctival abnormality ENMT external ear and nose normal, oropharynx normal Neck trachea midline, no thyromegaly normal visual inspection Respiratory normal respiratory effort, lungs clear to auscultation no respiratory distress Cardiovascular RRR, no murmur, no edema Gastrointestinal (Abdomen) Inspection/Auscultation: abdomen normal to inspection; abdomen not distended Musculoskeletal no cyanosis or clubbing, extremities motor strength 5/5 Skin no rashes, warm and dry Neurologic moves all extremities and awake Psychiatric Orientation: alert, oriented to person and cooperative Discharge Data Allergies Allergy/AdvReac Type Severity Reaction Status Date / Time Iodinated Contrast- Oral and Allergy Unknown HIVES Verified 06/10/18 13:05 IV Dye Consultations 06/10/18 13:36 ED Decision to Admit Stat 06/10/18 16:00 Consult Cardiology Routine Consult Case Management - Discharge Planning Routine Hospital Course (1) Severe aortic stenosis: Patient is to be aortic stenosis per Dr. Morris with a valve area of 0.8 cm. His dyspnea could be associate with his valve. It is also unclear whether he had any ischemic work-up in the past. Renal will be consulted troponins will be trended 1 dose of Lasix 20 mg will be given supplemental oxygen Given the new onset left bundle branch block consideration for stress testing will be the discretion of Dr. Morris (2) Diabetes: Patient to continue basal bolus insulin he was oral hypoglycemic agents will be stopped which include glimepiride and metformin (3) Paroxysmal A-fib: Patient has a history of Parkinson White with ablation he typically is rate controlled with atenolol did not seem to be formally anticoagulated this time (4) Dyslipidemia: pt typically takes atorvostatin (5) COPD (chronic obstructive pulmonary disease): pt will remain on symbicort, his copd may also impact his dyspnea on exertion (6) BPH (benign prostatic hyperplasia): pt is without lower urinary symptoms, doxasin and finestaride (7) DVT prophylaxis: heparin sc Total Time Total Time Spent Total Time Spent (In Minutes): 25 Total Time Includes: Examination of the Patient and Discharge Planning Discharge Plan Discharge Items Patient Disposition: Home - Self-Care Reason For Visit: PULMONARY EDEMA,LBBB Discharge Diagnosis: Aortic stenosis Discharge Goals: Decrease discomfort and Diagnostic testing Activity: Resume your previous activity Exercise/Sports: None Non-emergency contact: Primary Care Provider and Open Die Inspector Call non-emergency contact if: you have any medication questions and your symptoms worsen Follow-up/Referrals: Keegan Morris MD [Physician] - Ezio Thao MD [Primary Care Provider] - Diet: Heart Healthy Addtl Provider Instructions: Please follow up with Dr. Morris for your aortic valve narrowing. Prescriptions: Continued atorvastatin 10 mg tablet 10 mg PO DAILY RF: 0 atenolol 100 mg tablet 100 mg PO DAILY RF: 0 amlodipine 10 mg tablet 10 mg PO DAILY RF: 0 metformin 1,000 mg tablet 1,000 mg PO DAILY RF: 0 glimepiride 4 mg tablet 4 mg PO DAILY RF: 0 fluticasone propionate 50 mcg/actuation spray,suspension 2 spray intranasal DAILY RF: 0 finasteride 5 mg tablet 5 mg PO DAILY RF: 0 doxazosin 2 mg tablet 2 mg PO DAILY RF: 0 Symbicort 80-4.5 mcg/actuation HFA aerosol inhaler 1 puff inhalation BID RF: 0 Basaglar KwikPen U-100 Insulin 100 unit/mL (3 mL) insulin pen 22 units subcut UD RF: 0 ergocalciferol (vitamin D2) [Vitamin D2] 50,000 unit Capsule 50,000 unit PO Q7D RF: 0 aspirin [Aspir-81] 81 mg Tablet,Delayed Release (Dr/Ec) 81 mg PO DAILY RF: 0 Stand-Alone Forms: [facility] Discharge Orders: Discharge Order (Routine); Ordered 06/11/18 Ordered By: Bret Oates Admission Data Admit Date/Time: 05/02/19 14:09 Attending Provider: Bret Oates Admit Provider: Espinoza Henry Primary Care Provider: Ezio Thao Other Providers: Keegan Morris ; Bret Oates Service: Telemetry Other Interventions: Discharge Summary Assessment (RN) Last Done: 06/11/18 11:30 DC Date/Time DO NOT enter until pt leaves facility: 06/11/18 13:35
[2018-06-11] MEDS ORDERED: DOXAZosin MESYLATE TAB 2 MG TAB PO SCH (21:00)
== END 2018-06-11 13:35 | disposition home or self-care (01) ==
LOC: ED 11:50 → 2E 11:50 → SUATTDRO 14:09 → 2E 16:00

== ENCOUNTER 2018-11-06 08:14 | Inpatient (IN) ==
[2018-11-06] MEDS ORDERED: METOPROLOL TARTRATE 1 MG/ML VIAL IV PRN (08:45)
[2018-11-06 08:54] LABS: Basophils # (auto) 0.05 K/uL (0-0.2); Basophils % (auto) 0.5 %; Eosinophils # (auto) 0.35 K/uL (0-0.5); Eosinophils % (auto) 3.5 %; Hematocrit (blood only) 39.6 % (42-52); Hemoglobin 13.1 g/dL (14.0-18.0); Immature Granulocytes # (auto) 0.05 K/uL (0.00-0.02); Immature Granulocytes % (auto) 0.5 %; Lymphocytes # (auto) 1.54 K/uL (1.2-3.4); Lymphocytes % (auto) 15.4 %; Mean Corpuscular Hgb Conc 33.1 g/dL (32-36); Mean Corpuscular Volume 84.6 fL (80-100); Mean Platelet Volume 10.6 fL (7.4-10.4); Monocytes # (auto) 0.84 K/uL (0.11-0.59); Monocytes % (auto) 8.4 %; Neutrophils % (auto) 71.7 %; Platelet Count 187 K/uL (130-400); RDW Coefficient of Variation 17.2 % (11.5-14.5); Red Blood Count 4.68 M/uL (4.7-6.1); White Blood Count 10.03 K/uL (4.8-10.8)
[2018-11-06 09:07] LABS: INR 1.1 (0.9-1.1); Partial Thromboplastin Ratio 0.9; Partial Thromboplastin Time 24.2 Seconds (21.0-31.0); Prothrombin Time 11.1 Seconds (9.0-12.0)
[2018-11-06 09:10] LABS: Alanine Aminotransferase 19 U/L (12-78); Albumin Level 3.4 gm/dl (3.4-5.0); Aspartate Aminotransferase 22 U/L (15-37); BUN Creatinine Ratio 18.4 (10-20); Blood Urea Nitrogen 21 mg/dl (7-18); Calcium 9.6 mg/dl (8.5-10.1); Carbon Dioxide 27 mmol/L (21-32); Chloride 104 mmol/L (98-107); Est GFR (African American) 68.1; Est GFR (Non-African American) 58.7; Glucose 177 mg/dl (70-99); Magnesium 1.6 mg/dl (1.8-2.4); Potassium 3.7 mmol/L (3.5-5.1); Sodium 140 mmol/L (136-145)
[2018-11-06 09:13] LABS: Albumin Globulin Ratio 0.9 (0.9-2); Alkaline Phosphatase 62 U/L (45-117); Bilirubin,Total 1.2 mg/dl (0.2-1); Globulin 3.7 gm/dl (2.5-4.0); Total Protein 7.1 gm/dl (6.4-8.2)
--- NOTE | 2018-11-06 09:15 | XRay Report ---
XR chest 1V portable HISTORY: atrial fib COMPARISON: Chest 06/10/2018. FINDINGS: The heart remains enlarged. There is interstitial and vascular thickening, unchanged. Trace bilateral pleural effusions. No new focal lung consolidations. No pneumothorax. IMPRESSION: No significant change in the mild interstitial pulmonary edema, cardiomegaly, trace bilateral pleural effusions. Electronically signed by: Bandar Jonas M.D. 11/06/2018 9:14 AM
[2018-11-06 09:39] LABS: Thyroid Stimulating Hormone 1.85 uIu/ml (0.300-4.500); Troponin I 0.046 ng/ml (0-0.045)
--- NOTE | 2018-11-06 10:54 | Emergency Department Note ---
Entered by Yenny Agustin acting as a scribe for Venecia Rodarte MD History of Present Illness General Chief complaint: Tachycardia Stated complaint: RACING HEART Source: patient History of Present Illness Onset (ago): day(s) (last night) Location: chest Pain Consistency: + other (episode) Maximum Pain Intensity: 0 Quality: + other (tachycardia) Associated symptoms: + denies other symptoms (nausea) The patient is a 82 year old male with a history of hypertension, CAD, and atrial fibrillation that is presenting to the Emergency Room with complaints of an episode of tachycardia that started last night. The patient reports that his heart rate was 117 bpm prior to going to bed. He states that his heart rate dropped to 107 bpm this morning and then to 86 bpm prior to leaving for the ED. He denies any nausea. He states that he has a history of atrial fibrillation but notes that he discontinued his anti-coagulant due to episodes of bleeding. He n otes that he takes an aspirin daily. He reports that he is followed by Dr. Morris, cardiology. The patient states that he had a cardiac catheterization performed at [facility] several months ago and that he is waiting to schedule a valve replacement with [facility]. He states that he took all his medications yesterday but denies taking any medications today prior to arrival. The patient states that he has been coughing up yellow phlegm recently and notes that he was previously found to have fluid on his lungs with similar symptoms. He notes that he takes a diuretic pill and Atenolol daily. Home Medications Home Medications Medication Instructions Recorded Confirmed Type aspirin [Aspir-81] 81 mg PO DAILY 06/10/18 11/06/18 History doxazosin 2 mg PO DAILY 06/10/18 11/06/18 History ergocalciferol (vitamin D2) 50,000 unit PO Q7D 06/10/18 11/06/18 History [Vitamin D2] finasteride 5 mg PO DAILY 06/10/18 11/06/18 History furosemide [Lasix] 40 mg PO DAILY 07/12/18 11/06/18 History potassium chloride 1 meq PO DAILY 07/12/18 11/06/18 History pen needle,diabetic dual safety 30 #100 ea 07/23/18 11/06/18 Rx gauge x 3/16" metformin 1,000 mg tablet 1,000 mg PO DAILY #30 tab 08/20/18 11/06/18 Rx insulin glargine (U-100) 100 22 units SUBCUT UD #15 ml 10/13/18 11/06/18 Rx unit/mL (3 mL) subcutaneous pen glimepiride 4 mg tablet 4 mg PO QAM #90 tab 10/18/18 11/06/18 Rx atorvastatin 10 mg tablet 10 mg PO QPM #90 tab 11/01/18 11/06/18 Rx metoprolol succinate 25 mg PO QAM 30 Days #30 tab 11/07/18 Rx potassium chloride [Klor-Con M20] 20 meq PO DAILY 30 Days #30 tab 11/07/18 Rx Allergies Allergy/AdvReac Type Severity Reaction Status Date / Time Iodinated Contrast Media Allergy Unknown HIVES Verified 11/06/18 09:26 amoxicillin [From Augmentin] Allergy Unknown Verified 11/06/18 12:54 clavulanic acid Allergy Unknown Verified 11/06/18 12:54 [From Augmentin] oxaprozin [From Daypro] Allergy Unknown Verified 11/06/18 12:54 sitagliptin [From Januvia] Allergy Unknown Verified 11/06/18 12:54 Past Med/Surg History Medical History Jmsky-Xzixyhdhf-Wlaxd (WPW) pattern (Chronic) BPH (benign prostatic hyperplasia) COPD (chronic obstructive pulmonary disease) Diabetes Dyslipidemia Paroxysmal A-fib Severe aortic stenosis Family History Unknown Cancer Unknown Coronary heart disease Brother Patient's brother is Family Health Status Of Brother - Cirrhosis Pancreatic malignant neoplasm Malignant Pancreatic Neoplasm Social History Preferred Language: Nepali Communication Ability: Effective Extrusion Manager Required: No Beliefs That Will Affect Care: None Current Living Situation: Other Current Living Situation Comment: lives with friend Feels Safe at Home: Yes Smoking Status: Never smoker Second Hand Exposure: No ; Hx Alcohol Use: No Hx Substance Use: No Review of Systems See HPI for pertinent positives & negatives. and A total of 10 systems reviewed and were otherwise negative Physical Exam Vital Signs Vital Signs - 24 hr 11/06/18 08:21 11/06/18 08:26 11/06/18 08:44 Temperature 37.2 C Temperature Source Oral Sepsis Recent Fever Within 48 Hours No Sepsis Action Taken by Nursing No Action Required Pulse Rate 118 H 118 H Pulse Rate [Apical] Respiratory Rate 20 20 Respiratory Effort / Characteristics Non-Labored Respiratory Depth Normal Respiratory Pattern Blood Pressure 141/72 H Blood Pressure [Right Arm] Blood Pressure Mean 95 Blood Pressure Mean [Right Arm] Pulse Oximetry 95 96 Oxygen Delivery Method Room Air Room Air Room Air 11/06/18 08:50 11/06/18 09:09 11/06/18 09:34 Temperature Temperature Source Sepsis Recent Fever Within 48 Hours Sepsis Action Taken by Nursing Pulse Rate 110 H Pulse Rate [Apical] 89 Respiratory Rate 22 Respiratory Effort / Characteristics Respiratory Depth Respiratory Pattern Blood Pressure Blood Pressure [Right Arm] 100/75 Blood Pressure Mean Blood Pressure Mean [Right Arm] 83 Pulse Oximetry 92 Oxygen Delivery Method Room Air 11/06/18 09:55 11/06/18 11:00 Temperature Temperature Source Sepsis Recent Fever Within 48 Hours Sepsis Action Taken by Nursing Pulse Rate Pulse Rate [Apical] 106 H Respiratory Rate 19 Respiratory Effort / Characteristics Non-Labored Spontaneous SOB on Exertion Respiratory Depth Normal Respiratory Pattern Regular Blood Pressure Blood Pressure [Right Arm] 105/82 Blood Pressure Mean Blood Pressure Mean [Right Arm] 89 Pulse Oximetry 96 Oxygen Delivery Method Room Air Room Air Vital signs reviewed. General: Obese, chronically-ill appearing, in no significant distress. HEENT: No scleral icterus, PERRLA, neck supple. Atraumatic. Cardiovascular: Rapid heart rate and irregular rhythm, diminished heart tones with systolic ejection murmur. Pulmonary: Faint crackles at the bases bilaterally. Abdomen: Soft, nontender, nondistended, positive bowel sounds. Musculoskeletal: Atraumatic, mild peripheral edema. Neurologic: Patient awake alert and oriented x 3 Skin: Warm, dry, no rash Course 0857:The patient was evaluated in room A11B. A complete history and physical examination was performed. 0942: The patient's troponin is elevated at this time. A repeat troponin test was ordered 1020: I discussed the patient's case with Dr. Alejo [facility] [place], who will evaluate the patient for further management and care. 1030: Upon reevaluation, the patient is resting comfortably. I discussed laboratory and radiographic results with the patient. He verbalized agreement of the treatment plan. The patient will be evaluated for further management and care. Consultations Consultation #1: I discussed the patient's case with Dr. Alejo [facility] [place], who will evaluate the patient for further management and care. Time: 10:20 Administered Medications Discontinued Medications Aspirin (Ecotrin Ectab) 81 mg PO DAILY RANDA Stop: 12/07/18 08:59 Last Admin: 11/07/18 08:11 Dose: 81 mg Documented by: [id number] Atorvastatin Calcium (Lipitor) 10 mg PO QPM RANDA Stop: 12/06/18 20:59 Last Admin: 11/07/18 20:41 Dose: 10 mg Documented by: [id number] Admin: 11/06/18 21:51 Dose: 10 mg Documented by: [id number] Doxazosin Mesylate (Cardura) 2 mg PO DAILY RANDA Stop: 12/07/18 08:59 Last Admin: 11/07/18 08:11 Dose: 2 mg Documented by: [id number] Finasteride (Proscar) 5 mg PO DAILY RANDA Stop: 12/07/18 08:59 Last Admin: 11/07/18 08:12 Dose: 5 mg Documented by: [id number] Furosemide (Lasix) 40 mg IV NOW STA Stop: 11/06/18 12:33 Last Admin: 11/06/18 14:23 Dose: Not Given Documented by: [id number] Furosemide 40 mg/ Syringe 4 mls @ 4 mls/min IV BID17 RANDA Stop: 12/06/18 13:14 Last Admin: 11/06/18 13:58 Dose: 4 mls/min Documented by: [id number] Magnesium Sulfate/Dextrose (Magnesium Sulfate / D5w) 1 gm in 100 mls @ 100 mls/hr IV Q1H RANDA Stop: 11/06/18 15:14 Last Infusion: 11/06/18 18:29 Dose: 0 mls/hr Documented by: [id number] Admin: 11/06/18 15:21 Dose: 100 mls/hr Documented by: [id number] Infusion: 11/06/18 15:12 Dose: 100 mls/hr Documented by: [id number] Admin: 11/06/18 14:12 Dose: 100 mls/hr Documented by: [id number] Furosemide 40 mg/ Syringe 4 mls @ 4 mls/min IV QAM RANDA Stop: 12/07/18 08:59 Last Admin: 11/07/18 08:11 Dose: 4 mls/min Documented by: [id number] Insulin Aspart (Novolog Flexpen) 0 units SC ACHS RANDA Stop: 12/06/18 16:29 Last Admin: 11/07/18 20:45 Dose: 1 units Documented by: [id number] Cosigned by: [id number] Admin: 11/07/18 17:36 Dose: 9 units Documented by: [id number] Cosigned by: [id number] Admin: 11/07/18 12:00 Dose: 10 units Documented by: [id number] Cosigned by: [id number] Admin: 11/07/18 08:10 Dose: 5 units Documented by: [id number] Cosigned by: [id number] Admin: 11/06/18 21:51 Dose: 1 units Documented by: [id number] Cosigned by: [id number] Admin: 11/06/18 16:54 Dose: 7 units Documented by: [id number] Cosigned by: [id number] Insulin Glargine (Lantus Solostar Pen) 20 units SC HS RANDA; Protocol Stop: 12/06/18 20:59 Last Admin: 11/06/18 21:51 Dose: 20 units Documented by: [id number] Cosigned by: [id number] Insulin Glargine (Lantus Solostar Pen) 22 units SC HS RANDA; Protocol Stop: 12/07/18 20:59 Last Admin: 11/07/18 20:39 Dose: 22 units Documented by: [id number] Cosigned by: [id number] Metoprolol Succinate (Toprol Xl) 25 mg PO QAM RANDA Stop: 12/06/18 16:59 Last Admin: 11/07/18 08:11 Dose: 25 mg Documented by: [id number] Admin: 11/06/18 18:21 Dose: 25 mg Documented by: [id number] Metoprolol Tartrate (Lopressor) 5 mg IV Q5M PRN PRN Reason: Tachycardia Stop: 12/06/18 08:44 Last Admin: 11/06/18 09:09 Dose: 5 mg Documented by: [id number] Metoprolol Tartrate (Lopressor) 5 mg IV NOW STA Stop: 11/06/18 13:01 Last Admin: 11/06/18 14:04 Dose: 5 mg Documented by: [id number] Potassium Chloride (Klor-Con M20) 20 meq PO DAILY RANDA Stop: 12/07/18 08:59 Last Admin: 11/07/18 08:11 Dose: 20 meq Documented by: [id number] Medical Decision Making Differential Diagnosis Differential diagnoses includes but is not limited to pneumonia, bronchitis, COPD/Asthma exacerbation, pneumothorax, pulmonary embolism, congestive heart failure, acute coronary syndrome Medical Records Attestation: I reviewed the patient's medical records. Home Medications Current Medication List: was personally reviewed by me Laboratory Data Attestation: I reviewed the patient's lab results. Result diagrams: 11/07/18 05:06 11/07/18 06:12 Lab Results 11/06/18 11/06/18 11/06/18 Range/Units 08:45 08:45 08:45 WBC 10.03 (4.8-10.8) K/uL RBC 4.68 L (4.7-6.1) M/uL Hgb 13.1 L (14.0-18.0) g/dL Hct 39.6 L (42-52) % MCV 84.6 (80-100) fL MCH 28.0 (25-34) pg MCHC 33.1 (32-36) g/dL RDW Std Deviation 53.0 H (36.4-46.3) fL RDW Coeff of Tyson 17.2 H (11.5-14.5) % Plt Count 187 (130-400) K/uL MPV 10.6 H (7.4-10.4) fL Immature Gran % (Auto) 0.5 % Neut % (Auto) 71.7 % Lymph % (Auto) 15.4 % Schuyler % (Auto) 8.4 % Eos % (Auto) 3.5 % Baso % (Auto) 0.5 % Immature Gran # (Auto) 0.05 H (0.00-0.02) K/uL Neut # (Auto) 7.20 H (1.4-6.5) K/uL Lymph # (Auto) 1.54 (1.2-3.4) K/uL Schuyler # (Auto) 0.84 H (0.11-0.59) K/uL Eos # (Auto) 0.35 (0-0.5) K/uL Baso # (Auto) 0.05 (0-0.2) K/uL PT 11.1 (9.0-12.0) Seconds INR 1.1 (0.9-1.1) APTT 24.2 (21.0-31.0) Seconds PTT Ratio 0.9 Sodium 140 (136-145) mmol/L Potassium 3.7 (3.5-5.1) mmol/L Chloride 104 (98-107) mmol/L Carbon Dioxide 27 (21-32) mmol/L Anion Gap 9.0 (3-11) BUN 21 H (7-18) mg/dl Creatinine 1.16 (0.6-1.4) mg/dl Est Cr Clr Drug Dosing Not Reportable Est GFR ( Amer) 68.1 Est GFR (Non-Af Amer) 58.7 BUN/Creatinine Ratio 18.4 (10-20) Glucose 177 H (70-99) mg/dl Calcium 9.6 (8.5-10.1) mg/dl Magnesium 1.6 L (1.8-2.4) mg/dl Total Bilirubin 1.2 H (0.2-1) mg/dl AST 22 (15-37) U/L ALT 19 (12-78) U/L Alkaline Phosphatase 62 (45-117) U/L Troponin I (0-0.045) ng/ml Total Protein 7.1 (6.4-8.2) gm/dl Albumin 3.4 (3.4-5.0) gm/dl Globulin 3.7 (2.5-4.0) gm/dl Albumin/Globulin Ratio 0.9 (0.9-2) TSH (0.300-4.500) uIu/ml 11/06/18 Range/Units 08:45 WBC (4.8-10.8) K/uL RBC (4.7-6.1) M/uL Hgb (14.0-18.0) g/dL Hct (42-52) % MCV (80-100) fL MCH (25-34) pg MCHC (32-36) g/dL RDW Std Deviation (36.4-46.3) fL RDW Coeff of Tyson (11.5-14.5) % Plt Count (130-400) K/uL MPV (7.4-10.4) fL Immature Gran % (Auto) % Neut % (Auto) % Lymph % (Auto) % Schuyler % (Auto) % Eos % (Auto) % Baso % (Auto) % Immature Gran # (Auto) (0.00-0.02) K/uL Neut # (Auto) (1.4-6.5) K/uL Lymph # (Auto) (1.2-3.4) K/uL Schuyler # (Auto) (0.11-0.59) K/uL Eos # (Auto) (0-0.5) K/uL Baso # (Auto) (0-0.2) K/uL PT (9.0-12.0) Seconds INR (0.9-1.1) APTT (21.0-31.0) Seconds PTT Ratio Sodium (136-145) mmol/L Potassium (3.5-5.1) mmol/L Chloride (98-107) mmol/L Carbon Dioxide (21-32) mmol/L Anion Gap (3-11) BUN (7-18) mg/dl Creatinine (0.6-1.4) mg/dl Est Cr Clr Drug Dosing Est GFR ( Amer) Est GFR (Non-Af Amer) BUN/Creatinine Ratio (10-20) Glucose (70-99) mg/dl Calcium (8.5-10.1) mg/dl Magnesium (1.8-2.4) mg/dl Total Bilirubin (0.2-1) mg/dl AST (15-37) U/L ALT (12-78) U/L Alkaline Phosphatase (45-117) U/L Troponin I 0.046 H* (0-0.045) ng/ml Total Protein (6.4-8.2) gm/dl Albumin (3.4-5.0) gm/dl Globulin (2.5-4.0) gm/dl Albumin/Globulin Ratio (0.9-2) TSH 1.850 (0.300-4.500) uIu/ml Imaging Data Radiologist's Impression: Radiology results as stated below per my review and the radiologist's interpretation: XR chest 1V portable HISTORY: atrial fib COMPARISON: Chest 06/10/2018. FINDINGS: The heart remains enlarged. There is interstitial and vascular thickening, unchanged. Trace bilateral pleural effusions. No new focal lung consolidations. No pneumothorax. IMPRESSION: No significant change in the mild interstitial pulmonary edema, cardiomegaly, trace bilateral pleural effusions. Electronically signed by: Bandar Jonas M.D. 11/06/2018 9:14 AM ECG Data Attestation: I personally reviewed and interpreted this ECG as follows: Indication: tachycardia Rate (beats per minute): 117 Rhythm: atrial fibrillation (with RVR) Findings: + other (Aberrant conducted complex, QTC 507) and + LBBB Blood Pressure Blood Pressure Findings: Elevated blood pressure Blood Pressure Disposition: Referred to patients primary care provider MDM Narrative This pt was evaluated and appeared to be in no distress. IV access was obtained and lab work was drawn. CXR was performed and reveals mild pulmonary edema. EKG confirms rapid atrial fibrillation. Lab work reveals a trop of 0.046. Pt was given IV metoprolol 5 mg for rate control. Pt was informed of the findings. He is on a baby aspirin daily. Pt was d/w the hospitalist service for evaluation and further management. Impression & Plan Atrial fibrillation with RVR, Elevated troponin Discharge Plan Visit Data *Final* Discharge Date/Time: 11/06/18 12:21 Chief Complaint: Tachycardia Stated Complaint: RACING HEART ED Provider: Venecia Rodarte Discharge Problem: Atrial fibrillation with RVR, Elevated troponin Patient Disposition: Admitted As Inpatient Discharge Instructions Interventions: ED Discharge Assessment Last Done: 11/06/18 12:21 The scribe's documentation has been prepared under my direction and personally reviewed by me in its entirety. I confirm that the note above accurately reflects all work, treatment, procedures, and medical decision making performed by me.
--- NOTE | 2018-11-06 11:30 | History & Physical Report ---
Date of Service November 06, 2018 Assessment & Plan (1) Atrial fibrillation with RVR: Admit Telemetry Cardiology Consult Serial Troponin Repeat EKG Lasix 40mg IV BID Daily Weight- standing scale Strict I&O Mag 1.6-> 2g IV replacement--> recheck mag tonight Will hold amlodipine for now in order to get rate under better control with metoprolol CBC, BMP in AM ECHO pending (2) Heart failure, diastolic, with acute decompensation: * ECHO May 2018- normal LV systolic function, LVEF 55-60%. moderate LVH. Severe valvular aortic stenosis, mild MR. Lipomatous hypertrophy of interatrial septum noted. * Previous admission June 2018 with acute on chronic diastolic CHF * Given physical exam findings and absent S2, repeat ECHO pending to evaluated for worsening (3) Aortic stenosis: * Previous ECHO June 2018 with severe valvular * Repeat ECHO (4) Elevated troponin: * Elevated at 0.046- likely supply/demand mismatch * Serial troponin x 3- will continue to trend (5) Diabetes mellitus, type II: * Hold glimiperide, metformin while inpatient * SSI while inpatient * Pharmacy Consult Glycemic Control * Well controlled- A1c 5.17 Jun 2018 (6) LBBB (left bundle branch block): * Chronic * Continue home medications (7) Hypertension: * Will hold amlodipine for now--> patient given metoprolol for better rate control * Continue doxazosin 2mg (8) Coronary artery disease: * As above * Continue home medications- ASA, Atorvastatin (9) Zcjdr-Yyrpkqgtf-Xwkiv pattern: * Per patient, never underwent ablation * Investigation of previous admission and cardiology notes indicate 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 (10) COPD (chronic obstructive pulmonary disease): * Per patient - never smoker, not on any home medications (11) Hyperlipidemia: * Stable * Continue Atorvastatin 10mg * Most recent lipid panel June 2018- Tiglycerides 113, Cholesterol 85, LDL 25, H DL 37 (12) BPH (benign prostatic hyperplasia): * Stable * Continue finasteride (13) DVT prophylaxis: * SCDs * Patient on Xarelto in past with bleeding/hematuria- will hold chemical prophylaxis at this time Dispo: d/c home pending diuresis and rate control History of Present Illness Chief Complaint: Tachycardia, Shortness of Breath Primary Care Provider: Ezio Thao MD Patient is 82 yo wm with significant PMH CAD (cardiac catheterization July 2018 [facility] with severe signle vessel disease, 30% mid left main, moderate to severe mid LAD lesions), Aortic Stenosis (severe, awaiting valvular [place] [facility] WPW, paroxysmal afib, DM II, HLD, COPD, BPH evaluated in the emergency room for increased heart rate and shortness of breath, found to be in afib w RVR on EKG. Patient states he has had some increasing shortness of breath over the last two days ,and his heart rate has been elevated at home. He states it was 117 this morning. Per patient, chronically short of breath with his underlying COPD, especially with exertion, however over the past several weeks it has gotten worse.He states he has noticed increased swelling in his legs as well over the past several days and continues to deal with shortness of breath. He was admitted in June 2018 for acute decompensated diastolic CHF which was treated with diuretics, which the patient has continued taking, while awaiting being scheduled for [place] [facility]. The patient states up until recently he has been feeling well overall; no recent fevers, chills, chest pain, prolonged immobility, travel, history of DVT/PE, abdominal pain, n/v/d. Without pain with inspiration. He has had a cough productive of yellow/white sputum and per patient and friend at bedside, Ameya, this is very similar to previous presentations after the patient is found to be in atrial fibrillation with resulting pulmonary congestion. The patient has been on Xarelto in the past but has since discontinued them due to bleeding co mplications/hematuria. ED Course: EKG afib with RVR, LBBB (noted on prior EKG June 2018). Lopressor 5mg IV x 1 given. HR currently 106. Slightly elevated troponin at 0.046. WBC wnl. Mag 1.6. Afebrile. Allergies Allergy/AdvReac Type Severity Reaction Status Date / Time Iodinated Contrast Media Allergy Unknown HIVES Verified 11/06/18 09:26 amoxicillin [From Augmentin] Allergy Unknown Verified 11/06/18 12:54 clavulanic acid Allergy Unknown Verified 11/06/18 12:54 [From Augmentin] oxaprozin [From Daypro] Allergy Unknown Verified 11/06/18 12:54 sitagliptin [From Januvia] Allergy Unknown Verified 11/06/18 12:54 Home Medications Home Medications Medication Instructions Recorded Confirmed Type aspirin [Aspir-81] 81 mg PO DAILY 06/10/18 11/06/18 History doxazosin 2 mg PO DAILY 06/10/18 11/06/18 History ergocalciferol (vitamin D2) 50,000 unit PO Q7D 06/10/18 11/06/18 History [Vitamin D2] finasteride 5 mg PO DAILY 06/10/18 11/06/18 History furosemide [Lasix] 40 mg PO DAILY 07/12/18 11/06/18 History potassium chloride 1 meq PO DAILY 07/12/18 11/06/18 History pen needle,diabetic dual safety 30 #100 ea 07/23/18 11/06/18 Rx gauge x 3/16" metformin 1,000 mg tablet 1,000 mg PO DAILY #30 tab 08/20/18 11/06/18 Rx insulin glargine (U-100) 100 22 units SUBCUT UD #15 ml 10/13/18 11/06/18 Rx unit/mL (3 mL) subcutaneous pen amlodipine 10 mg tablet 10 mg PO DAILY #90 tab 10/18/18 11/06/18 Rx glimepiride 4 mg tablet 4 mg PO QAM #90 tab 10/18/18 11/06/18 Rx atorvastatin 10 mg tablet 10 mg PO QPM #90 tab 11/01/18 11/06/18 Rx Past Med/Surg History Medical History Oapht-Kympilrsl-Jdemc (WPW) pattern (Chronic) BPH (benign prostatic hyperplasia) COPD (chronic obstructive pulmonary disease) Diabetes Dyslipidemia Paroxysmal A-fib Severe aortic stenosis Family History Unknown Cancer Unknown Coronary heart disease Brother Patient's brother is Family Health Status Of Brother - Cirrhosis Pancreatic malignant neoplasm Malignant Pancreatic Neoplasm Social History Preferred Language: Turkish Communication Ability: Effective Veteran Appeals Reviewer Required: No Beliefs That Will Affect Care: None Current Living Situation: Other Current Living Situation Comment: lives with friend Feels Safe at Home: Yes Safety Concerns: Feels Safe At This Time Smoking Status: Never smoker Do You Dip or Chew Tobacco: No ; Second Hand Exposure: No ; Hx Alcohol Use: No Hx Substance Use: No Review of Systems Review of Systems: All systems reviewed & are unremarkable except as noted in HPI & below Physical Exam Respiratory: normal respiratory effort and able to speak in complete sentences; no audible wheezes Auscultation: + diminished lung sounds (bases bilaterally) Cardiovascular: Rate/Rhythm: + irregularly irregular Heart Sounds: + murmur (Harsh, holosystolic murmur, best appreciate RUSB. S1>S2) Vessels: + JVD Extremities: + edema (bilateral LE) Results & Data Vital Signs (Past 12 Hours) Vital Signs Temp Pulse Pulse Resp BP BP Pulse Ox 11/06/18 11:00 106 H 19 105/82 96 11/06/18 09:34 89 22 100/75 92 11/06/18 09:09 110 H 11/06/18 08:26 118 H 20 96 11/06/18 08:21 37.2 C 118 H 20 141/72 H 95 Supervising Physician Co-Signing Physician Notes Attending Attestation and Admission Note: Pt seen/examined, chart reviewed, admission care plan d/w SPENSER Ziegler. I agree w/ the melchor components of her admission documentation. 82yo male with known severe awaiting TAVR, COPD, permanent a.fib not on ant icoagulation, T2DM - presenting with worsening dyspnea on exertion, orthopnea, and tachycardia. At time of admission found to be in rapid a.fib and decompensated CHF. When asked why he has not been evaluated yet for TAVR he reports having had an appointment in July that was missed (was supposed to have pre-TAVR CT scans, office visit with CT surgery, etc) and he was "waiting for people to call me back." Denies any recent chest pain, syncope or pre-syncope. Main symptoms are that of orthopnea, PND, and dyspnea on exertion w/ minimal activity. PMH, PSH, allergies, meds, sochx, famhx, ros - reviewed Vitals - tachy, BP mildly low, o2 sats low 90s gen - obese, dyspneic w/ laying flat in bed neck - unable to assess JVD due to body habitus/large neck heart - irregular, tachy, s1, s2 not heard, 2/6 holosystolic murmur heard loudest at RUSB lungs - bibasilar rales (fine) w/ decreased BS abd - obese soft liver edge palpable ext - trace edema b/l labs, EKG reviewed cxr - pulm edema w/ effusions A/P: 1. permanent a.fib, not on anticoagulation, with RVR 2. decompensated CHF - see below 3. severe - now critical with LV dysfunction 4. noncompliance 5. BPH 6. T2DM 7. obesity with BMI 38 8. COPD 9. CAD as seen on cath 07/2018 urgent echo obtained today showing critical and significant drop-off in LV function (EF was 55-60% in 05/2018, now 30-35% with hypokinesis/akinesis of most of LV) norvasc d/c toprol xl 25mg daily started for systolic CHF, CAD, , etc lasix diuresis spoke with Dr Edwards - recommends urgent transfer to [facility] for consideration of TAVR [facility] called and spoke with CT surgery, Dr Eckert, and software program manager Dr Cadena both agreed patient needs transfer to [facility] for TAVR plan - diurese, labs in am, and likely transfer to [facility] on Thursday11/07/18 patient made aware of probable transfer to [facility] tomorrow total time today - 110 minutes - this includes H/P activities by Ziegler and myself; multiple visits to pt's bedside; speaking with consultants at [facility] (30+ minute phone call), discussing care with Dr Jerry Hanna MD PG Care Time/CCT Total # of Minutes Spent Total Time Spent with Patient: Total time spent is greater than 50% in coordination of care (as documented) at patient's floor/unit and/or counseling patient: 60
[2018-11-06] MEDS ORDERED: FUROSEMIDE 40 MG/4 ML VIAL IV STA (12:32)
[2018-11-06] MEDS ORDERED: GLUCOSE 10 TABS/TUBE PO PRN ×2 (12:44→13:45)
[2018-11-06] MEDS ORDERED: POLYETHYLENE (MIRALAX) 17 GM PACK PO PRN (12:44)
[2018-11-06] MEDS ORDERED: ONDANSETRON INJ 2 MG/ML 2 ML VIAL IV PRN (12:44)
[2018-11-06] MEDS ORDERED: GLUCAGON FOR INJ 1 MG VIAL SQ PRN ×2 (12:44→13:45)
[2018-11-06] MEDS ORDERED: CARBOHYDRATES FOR HYPOGLYCEMIA PO PRN ×2 (12:44→13:45)
[2018-11-06] MEDS ORDERED: GLUCOSE 40% GEL 15 GM TUBE PO PRN ×2 (12:44→13:45)
[2018-11-06] MEDS ORDERED: ACETAMINOPHEN 325 MG TAB PO PRN (12:44)
[2018-11-06] MEDS ORDERED: INSULIN GLARGINE SOLOSTAR 100 UNITS/ML 3 ML PEN SQ SCH (12:44)
[2018-11-06] MEDS ORDERED: ALUMINUM/MAGNESIUM SUSP 30 ML UDC PO PRN (12:44)
[2018-11-06] MEDS ORDERED: NITROGLYCERIN SL 0.4 MG/TAB TAB SL PRN (12:44)
[2018-11-06] MEDS ORDERED: DEXTROSE 50% 50 ML SYRINGE IV PRN ×2 (12:44→13:45)
[2018-11-06] MEDS ORDERED: METOPROLOL TARTRATE 1 MG/ML VIAL IV STA (13:00)
[2018-11-06] MEDS ORDERED: FUROSEMIDE 40 MG in SYRINGE 0 ML IV SCH (13:15)
[2018-11-06] MEDS ORDERED: PHARMACY GLYCEMIC MGMT CONSULT PRN (13:35)
--- NOTE | 2018-11-06 13:50 | Pharmacy Report ---
Pharmacy Glycemic Short Note 2 - Date of Service November 06, 2018 - Glycemic Short BSG Results (Last 24 hours): 11/06/18 08:45 Glucose 177 H OUTPATIENT ANTIDIABETIC REGIMEN: * Lantus 22 units SQ HS * Glimepiride 4 mg qAM * Metformin 1000 mg PO BID * A1c 5.9% (06/11/18) - updated A1c ordered ASSESSMENT: * 82 yr old T2DM male admitted for A.fib with RVR * Patient is well controlled at home on a combination of Lantus plus two oral agents. Oral agents will be held for admission. * No significant risk factors for insulin resistance at this time. PLAN FOR INPATIENT GLYCEMIC CONTROL: * Hold outpatient oral diabetes medications * Basal insulin * Lantus 20 units SQ qHS * Bolus insulin * NovoLog per scale ACHS or Q6hrs while NPO * Goal Range: Low 110 mg/dL - High 140 mg/dL * Correction Factor: 20 mg/dL/unit * Nutritional / Prandial insulin per carb ratio of 1 unit per 8 grams CHO consumed
[2018-11-06] MEDS: MAGNESIUM SULFATE / D5W 1 GM/100 ML BAG IV SCH ×2 (14:12→15:21)
[2018-11-06] MEDS: INSULIN ASPART 100 UNITS/ML 3 ML PEN SC SCH ×2 (16:54→21:51)
[2018-11-06] MEDS ORDERED: INFLUENZA VIRUS QUAD VACCINE 0.5 ML SYR IM ONE (17:00)
[2018-11-06] MEDS ORDERED: INFLUENZA ADMINISTRATION CHARGE ONE (17:00)
--- NOTE | 2018-11-06 17:22 | Consultation Report ---
DATE OF CONSULTATION: 11/06/2018 REQUESTING: Korin Ziegler. BATCH TESTER: Tony Edwards DO, [facility] Cardiology for Dr. Keegan Morris, who is the patient's primary compression molding machine operator. REASON FOR CONSULTATION: Severe aortic stenosis, atrial fibrillation, left bundle branch block, worsening heart failure. Dear Ms. Ziegler, It was pleasure to see the patient today in consultation with regards to his atrial fibrillation with a rapid ventricular response, severe aortic stenosis, new onset cardiomyopathy likely secondary to pressure overload from his aortic valve and known coronary artery disease. He is admitted to the hospital with increasing shortness of breath. He notes after his catheterization in July, he was supposed to be seen at [facility] for a TAVR. For whatever reason, that has not occurred and he now notes 3-1/2 months later that he is having progressive dyspnea. Initially after the catheterization, he felt better, but over the last couple of weeks, he has had progressive dyspnea. To the point that yesterday, he was short of breath just at rest. He looks like he has sleep apnea and obesity hypoventilation syndrome, but does not appeared to have ever been diagnosed with it. He denies any palpitations or fluttering. Denies any chest pain, chest pressure, chest heaviness. It is 50 feet to the mailbox and he notes this causes him to be very fatigued. He lives with a friend who helps him do the cooking and cleaning, but this causes him also to be short of breath. He also has some lightheadedness and dizziness. Denies any presyncope or syncope. He notes occasional lower extremity edema. He has chronic abdominal distention. He denies any bleeding, dark stools or black stools while on anticoagulation with Xarelto. The rest of complete review of systems is otherwise negative. PAST MEDICAL HISTORY: 1. Critical aortic stenosis. 2. Previously normal LV function now with moderate left ventricular dysfunction. 3. Coronary artery disease status post cardiac catheterization on 07/2018 with a 50% lesion in the mid LAD and a very small vessel. 4. Mild pulmonary hypertension. 5. Obesity. 6. Likely obstructive sleep apnea, obesity hypoventilation syndrome. 7. Chronic atrial fibrillation. 8. Diabetes mellitus type 2. 9. Left bundle branch block. 10. Hypertension. 11. COPD. 12. Hyperlipidemia. 13. BPH. SOCIAL HISTORY: He lives with a friend. He currently denies any tobacco. FAMILY HISTORY: Noncontributory. MEDICATIONS: Reviewed in electronic medical record. ALLERGIES: TO IV CONTRAST, AMOXICILLIN, CLAVULANIC ACID, DAYPRO AND JANUVIA. PHYSICAL EXAMINATION: GENERAL: He is awake, alert, oriented x3. He looks his stated age. VITAL SIGNS: His heart rate is 110, respirations 18, blood pressure 136/98. HEENT: Moderately reduced carotid upstrokes. No evidence of carotid bruits. Jugular venous pressure cannot be assessed due to his neck size. His sclerae are anicteric. LUNGS: Globally decreased breath sounds. No rales, rhonchi or wheezing. HEART: Irregular rate and rhythm. It is hard to hear, but he has a harsh crescendo-decrescendo murmur, which is late peaking. S2 is not present. ABDOMEN: Obese, distended. Positive bowel sounds, nontender. EXTREMITIES: No clubbing, cyanosis or edema. PSYCHIATRIC: His affect appeared appropriate. DIAGNOSTIC STUDIES: EKG: Atrial fibrillation with a rapid ventricular response, left bundle branch block, PVCs. Echocardiogram: Moderate to severe left ventricular dysfunction with wall motion abnormalities involving the septum, mean gradient of 53 mmHg across the aortic valve in the face of a reduced stroke volume. Laboratory studies and his chest x-ray reviewed. IMPRESSION: 1. Critical aortic stenosis. 2. History of normal LV function, now with moderate to severe left ventricular dysfunction. 3. Coronary artery disease with a 50% lesion in a small LAD. From the history, it does not sound like it is amenable to angioplasty and stenting. 4. Left bundle branch block. 5. Atrial fibrillation on anticoagulation. I agree with gentle diuresis and will continue with his IV Lasix. I would add Toprol 25 mg to his medical regimen and up titrate it to slow his heart rate down. He is not going to tolerate fast heart rates with the severity of his aortic stenosis. It is a balancing act between slowing him down, but not lowering his blood pressure too much with his severe aortic stenosis. We will also have to watch with his diuretics that we do not make him excessively dry. It is unclear why he has not been evaluated for a TAVR at [facility]. It has been 3 months since catheterization. He is having worsening heart failure and now LV dysfunction. After the weekend, I will consider contacting [facility] directly and consider an inpatient transfer for TAVR. Thank you for allowing us to participate in his care. We will continue to follow him with you. He should remain on anticoagulation. ABBEY
[2018-11-06] MEDS: METOPROLOL SUCC 25MG EXT REL TAB PO SCH (18:21)
[2018-11-06] MEDS ORDERED: INSULIN GLARGINE SOLOSTAR 100 UNITS/ML 3 ML PEN SC SCH (21:00)
[2018-11-06] MEDS: ATORVASTATIN 10 MG TAB PO SCH (21:51)
[2018-11-07 05:35] LABS: Hematocrit (blood only) 37.8 % (42-52); Hemoglobin 12.5 g/dL (14.0-18.0); Mean Corpuscular Hemoglobin 28.2 pg (25-34); Mean Corpuscular Hgb Conc 33.1 g/dL (32-36); Mean Corpuscular Volume 85.3 fL (80-100); Mean Platelet Volume 10.9 fL (7.4-10.4); Platelet Count 196 K/uL (130-400); RDW Coefficient of Variation 17.1 % (11.5-14.5); RDW Standard Deviation 53.9 fL (36.4-46.3); Red Blood Count 4.43 M/uL (4.7-6.1); White Blood Count 10.47 K/uL (4.8-10.8)
[2018-11-07 06:03] LABS: Albumin Globulin Ratio 0.8 (0.9-2); Albumin Level 3.1 gm/dl (3.4-5.0); BUN Creatinine Ratio 19.8 (10-20); Bilirubin,Total 1.3 mg/dl (0.2-1); Calcium 8.8 mg/dl (8.5-10.1); Creatinine Clr Calc Pharmacy 62.7 ml/min; Est GFR (African American) 70.3; Est GFR (Non-African American) 60.6; Globulin 3.7 gm/dl (2.5-4.0); Total Protein 6.8 gm/dl (6.4-8.2)
[2018-11-07 06:38] LABS: Potassium 3.6 mmol/L (3.5-5.1)
[2018-11-07 07:24] LABS: Appearance Urine Clear (Clear); Bilirubin Urine Negative (Negative); Blood Urine Negative (Negative); Color Urine Yellow; Glucose Urine UA Negative (Negative); Ketones Urine Negative (Negative); Leukocyte Esterase Urine Negative (Negative); Nitrite Urine Negative (Negative); Protein Urine Negative (Negative); Urobilinogen Urine Negative (Negative); pH Urine 6.5 (4.5-7.5)
[2018-11-07] MEDS: INSULIN ASPART 100 UNITS/ML 3 ML PEN SC SCH ×4 (08:10→20:45)
[2018-11-07] MEDS: METOPROLOL SUCC 25MG EXT REL TAB PO SCH (08:11)
[2018-11-07] MEDS ORDERED: POTASSIUM CHLORIDE 20 MEQ TABCR PO SCH ×2 (09:00)
[2018-11-07] MEDS ORDERED: FUROSEMIDE 40 MG in SYRINGE 0 ML IV SCH (09:00)
[2018-11-07] MEDS ORDERED: AMLODIPINE BESYLATE 5 MG TAB PO SCH (09:00)
[2018-11-07] MEDS ORDERED: FINASTERIDE 5 MG TAB PO SCH (09:00)
[2018-11-07] MEDS ORDERED: DOXAZosin MESYLATE TAB 2 MG TAB PO SCH (09:00)
[2018-11-07] MEDS ORDERED: ASPIRIN 81 MG ECTAB PO SCH (09:00)
--- NOTE | 2018-11-07 11:21 | Hospitalist Progress Note ---
Date of Service November 07, 2018 Assessment & Plan (1) Aortic stenosis: * Continue to monitor on Telemetry- patient was to be seen at [facility] after Cardiac Cath July 2018 with CAD (50% lesion mid LAD) * Repeat EKG still with LBBB, not new * Mag 1.6-> 2g IV replacement--> repeat magnesium 2.2 * Amlodipine discontinued--> initiated on metoprolol * Cardiology Consult-- input appreciate input--> initiated on metoprolol--> will need transferred to tertiary care for TAVR- contacted [facility] last evening * Elevated troponins- 0.046, 0.366, 0.435- likely secondary * ECHO- results as above- critical , reduced EF 30-35%, septum kinetic (previous ECHO June 2018 with severe June 2018, EF 55-60%) * Will need to have gentle diuresis due to decreased EF and acute diastolic failure * Lasix 40mg IV BID transitioned to 40mg IV once daily for more gentle diuresis given severe * Metoprolol initiated at 25mg- will need titrated up slowly to balance slowing HR and avoiding significant drop in already borderline BP, currently 99/70mmHg * Daily Weight- standing scale * Strict I&O * Awaiting bed at [facility] for transfer- per conversations with supervising physician, Dr. Edwrads, Dr Eckert and Dr Cadena at [facility], agreed patient needs transfer [facility] for TAVR (2) Atrial fibrillation with RVR: * As above, * Afib with RVR, severe , with new onset cardiomyopathy- ?secondary from volume overload from and CAD (3) Heart failure, diastolic, with acute decompensation: * As above * Gentle diuresis given output state/ * ECHO May 2018- normal LV systolic function, LVEF 55-60%. moderate LVH. Severe valvular aortic stenosis, mild MR. Lipomatous hypertrophy of interatrial septum noted. * Previous admission June 2018 with acute on chronic diastolic CHF * Given physical exam findings and absent S2, repeat ECHO performed to evaluated for worsening --> results with critical * ?? Question patient follow-up/compliance and medical management- patient not on BB or THOMAS/ARB with hx HF, nor did he follow-up with [facility] for TAVR after his cardiac catheterization in July (4) Elevated troponin: * Elevated- likely supply/demand mismatch- peaked at 0.435 (5) Diabetes mellitus, type II: * Hold glimiperide, metformin while inpatient * SSI while inpatient * Pharmacy Consult Glycemic Control * Well controlled- A1c 5.17 Jun 2018 * A1c pending (6) LBBB (left bundle branch block): * Chronic * Continue home medications (7) Hypertension: * Will hold amlodipine for now--> patient given metoprolol for better rate control * Continue doxazosin 2mg * BPs currently stable at 114/73 (8) Coronary artery disease: * As above * Continue home medications- ASA, Atorvastatin (9) Smcju-Gtphquhvy-Baltp pattern: * Per patient, never underwent ablation * Investigation of previous admission and cardiology notes indicate 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 (10) COPD (chronic obstructive pulmonary disease): * Per patient - never smoker, not on any home medications (11) Hyperlipidemia: * Stable * Continue Atorvastatin 10mg * Most recent lipid panel June 2018- Triglycerides 113, Cholesterol 85, LDL 25, HDL 37 (12) BPH (benign prostatic hyperplasia): * Stable * Continue finasteride (13) DVT prophylaxis: * SCDs * Patient on Xarelto in past with bleeding/hematuria- will hold chemical prophylaxis at this time Dispo: awaiting transfer to [facility] for TAVR Supervising Physician Co-Signing Physician Notes Attending Attestation: Pt seen/examined, chart reviewed, care plan d/w SPENSER Ziegler. I agree w/ the melchor components of her documentation. Please see my attestation from discharge summary from same date. Werner Hanna MD Subjective Patient evaluated at bedside this morning. Patient up in chair, breathing comfortably at rest on room air, with saturation 93%. Patient continues to have some shortness of breath at rest, but particularly with exertion, which has declined over the recent past. Discussion with patient was had regarding transfer to [facility] for TAVR procedure after speaking with physician at [facility] regarding patient's currently condition and reduced EF with critical aortic stenosis. He feels SOB while laying flat. He states he did follow with Dr. Morris as an outpatient. The patient is agreeable to transfer at this time. Denies chest pain, n/v/d, abdominal pain, fevers, chills at this time. Review of Systems Review of Systems: All systems reviewed & are unremarkable except as noted in HPI & below Physical Exam Constitutional: + obese; no acute distress Eyes: PERRL, conjunctivae normal, anicteric sclerae ENMT: external ear and nose normal, oropharynx normal Neck: trachea midline, no thyromegaly Respiratory: normal respiratory effort and able to speak in complete sentences; no audible wheezes Auscultation: + diminished lung sounds (bases bilaterally) Cardiovascular: Rate/Rhythm: + irregularly irregular Heart Sounds: normal S1 and + murmur (Harsh, holosystolic murmur, best appreciate RUSB without appreciable S2); + abnormal S2 Extremities: + edema (bilateral LE) Gastrointestinal (Abdomen): Inspection/Auscultation: normal bowel sounds Percussion/Palpation: abdomen soft and + hepatomegaly; abdomen nontender Musculoskeletal: no cyanosis or clubbing, extremities motor strength 5/5 Skin: no rashes, warm and dry Neurologic: PERRL, EOMI, accommodation nl, no face palsy, no dysarthria Psychiatric: A+Ox3, euthymic affect Results & Data Vital Signs (Past 12 Hours) Vital Signs Temp Pulse Pulse Resp BP Pulse Ox Pulse Ox 11/07/18 07:41 85 93 11/07/18 07:26 36.6 C 104 H 21 99/70 L 96 11/07/18 04:37 36.7 C 82 18 105/73 95 11/06/18 23:41 36.8 C 87 22 98/65 L 95 Diagnostic Findings Repeat ECHO: Severe concentric LV hypertrophy. Moderate LV dysfunction with an EF 30-35%. Septum appears akinetic the rest of the ventricle appears to be moderately to severely hypokinetic. LV outflow tract velocity is reduced- SV estimated at 36cc. Severe valvular aortic stenosis with dimensionless index of 0.12 and mean gradient of 53mmHg, even in the face of LV dysfunction and low SV Mild AI IVC normal in size but does not collapse with inspiration PG Care Time/CCT Total # of Minutes Spent Total Time Spent with Patient: Total time spent is greater than 50% in coordination of care (as documented) at patient's floor/unit and/or counseling patient:60
--- NOTE | 2018-11-07 14:19 | Pharmacy Report ---
Pharmacy Glycemic Short Note 2 - Date of Service November 07, 2018 - Glycemic Short BSG Results (Last 24 hours): 11/06/18 11/06/18 11/07/18 16:43 20:08 05:06 Glucose 140 H POC Glucose 198 H 156 H 11/07/18 11/07/18 07:41 11:42 Glucose POC Glucose 155 H 155 H OUTPATIENT ANTIDIABETIC REGIMEN: * Lantus 22 units SQ HS * Glimepiride 4 mg qAM * Metformin 1000 mg PO BID * A1c 5.9% (06/11/18) - updated A1c ordered ASSESSMENT: * 82 yr old T2DM male admitted for A.fib with RVR * Patient is well controlled at home on a combination of Lantus plus two oral agents. Oral agents will be held for admission. * No significant risk factors for insulin resistance at this time. BSG has ranged from 140 - 198 mg/dL since time of admission. * Fasting BSG of 155 mg/dL is slightly elevated, therefore Lantus will be increased to home dose of 22 units daily. * Post prandial BSGs are acceptable. No changes will be made to Novolog today. PLAN FOR INPATIENT GLYCEMIC CONTROL: * Hold outpatient oral diabetes medications * Basal insulin * Lantus 22 units SQ qHS * Bolus insulin * NovoLog per scale ACHS or Q6hrs while NPO * Goal Range: Low 110 mg/dL - High 140 mg/dL * Correction Factor: 20 mg/dL/unit * Nutritional / Prandial insulin per carb ratio of 1 unit per 8 grams CHO consumed
--- NOTE | 2018-11-07 16:13 | Discharge Summary ---
Date of Service November 07, 2018 Admission HPI Per Admitting Provider Patient is 82 yo wm with significant PMH CAD (cardiac catheterization July 2018 [facility] with severe signle vessel disease, 30% mid left main, moderate to severe mid LAD lesions), Aortic Stenosis (severe, awaiting valvular surgery [facility]), WPW, paroxysmal afib, DM II, HLD, COPD, BPH evaluated in the emergency room for increased heart rate and shortness of breath, found to be in afib w RVR on EKG. Patient states he has had some increasing shortness of breath over the last two days ,and his heart rate has been elevated at home. He states it was 117 this morning. Per patient, chronically short of breath with his underlying COPD, especially with exertion, however over the past several weeks it has gotten worse.He states he has noticed increased swelling in his legs as well over the past several days and continues to deal with shortness of breath. He was admitted in June 2018 for acute decompensated diastolic CHF which was treated with diuretics, which the patient has continued taking, while awaiting being scheduled for TAVR at [facility]. The patient states up until recently he has been feeling well overall; no recent fevers, chills, chest pain, prolonged immobility, travel, history of DVT/PE, abdominal pain, n/v/d. Without pain with inspiration. He has had a cough productive of yellow/white sputum and per patient and friend at bedside, Ameya, this is very similar to previous presentations after the patient is found to be in atrial fibrillation with resulting pulmonary congestion. The patient has been on Xarelto in the past but has since discontinued them due to bleeding complications/hematuria. ED Course: EKG afib with RVR, LBBB (noted on prior EKG June 2018). Lopressor 5mg IV x 1 given. HR currently 106. Slightly elevated troponin at 0.046. WBC wnl. Mag 1.6. Afebrile. Admission Exam Per Admitting Provider Afib RVR, CHF Principal Diagnosis Severe Aortic Stenosis, Acute decompensated diastolic heart failure, afib rvr secondary to #1/#2 Discharge Exam Constitutional + obese; no acute distress Eyes PERRL, conjunctivae normal, anicteric sclerae ENMT external ear and nose normal, oropharynx normal Neck trachea midline, no thyromegaly Respiratory normal respiratory effort and able to speak in complete sentences; no audible wheezes Auscultation: + diminished lung sounds (bases bilaterally) Cardiovascular Rate/Rhythm: + irregularly irregular Heart Sounds: normal S1 and + murmur (Harsh, holosystolic murmur, best appreciate RUSB without appreciable S2); + abnormal S2 Vessels: + JVD Extremities: + edema (bilateral LE) Gastrointestinal (Abdomen) Inspection/Auscultation: normal bowel sounds Percussion/Palpation: abdomen soft and + hepatomegaly; abdomen nontender Musculoskeletal no cyanosis or clubbing, extremities motor strength 5/5 Skin no rashes, warm and dry Neurologic PERRL, EOMI, accommodation nl, no face palsy, no dysarthria Psychiatric A+Ox3, euthymic affect Discharge Data Allergies Allergy/AdvReac Type Severity Reaction Status Date / Time Iodinated Contrast Media Allergy Unknown HIVES Verified 11/06/18 09:26 amoxicillin [From Augmentin] Allergy Unknown Verified 11/06/18 12:54 clavulanic acid Allergy Unknown Verified 11/06/18 12:54 [From Augmentin] oxaprozin [From Daypro] Allergy Unknown Verified 11/06/18 12:54 sitagliptin [From Januvia] Allergy Unknown Verified 11/06/18 12:54 Consultations 11/06/18 10:22 ED Decision to Admit Stat 11/06/18 12:44 Consult Cardiology Routine Hospital Course (1) Aortic stenosis: * Patient was to be seen at [facility] after Cardiac Cath July 2018 with CAD (50% lesion mid LAD) for TAVR. * * Patient presented to ER for complaints of fast heart rate and increasing shortness of breath with exertion over the past several months. On admission, patient found to be in Afib with RVR on EKG with resulting acute decompensated heart failure. Amlodipine discontinued, metoprolol initiated per cardiology consult. ECHO June 2018 with EF 55-60%. Cardiac catheterization July 2018 with 50% mid LAD occlusion. Repeat ECHO this admission with critical , reduced EF 30-35%. Cardiology consult, with resulting initiation of metoprolol 25mg and recommendation for urgent transfer to [facility] for intervention. Mag 1.6, given 2g IV, repeat mag 1.6. Troponin trending up, 0.046, 0.366, 0.435. [facility] contacted (Dr. Cadena and Dr. Riley) on 11/06 for transfer for urgent TAVR. Gentle diuresis with lasix, rate control MTP 25mg. 95% on RA. Patient to be transported to room 1211 via ALS. (2) Atrial fibrillation with RVR: * As above, * Afib with RVR, severe , with new onset cardiomyopathy- secondary from volume overload from and CAD (3) Heart failure, diastolic, with acute decompensation: * As above * Gentle diuresis given output state/ * Previous admission June 2018 with acute on chronic diastolic CHF * Given physical exam findings and absent S2, repeat ECHO performed to evaluated for worsening --> results with critical and subsequent transfer ?? Patient Compliance: * Lost to follow-up after cardiac catheterization in July. * Patient not on BB, THOMAS-I, or ARB with diagnosis of HF. (4) Elevated troponin: * Elevated- likely supply/demand mismatch- peaked at 0.435 (5) Diabetes mellitus, type II: * Held glimiperide, metformin while inpatient. SSI. Patient well controlled with last A1c 5.09 Jun 2018. Repeat A1c still pending. (6) LBBB (left bundle branch block): * Chronic (7) Hypertension: * Continue doxazosin 2mg. Discontinued amlodipine and initiated metoprolol in setting of HF with severe . (8) Coronary artery disease: * As above * Continue home medications- ASA, Atorvastatin (9) Zhpkg-[id number]-Rbprw pattern: * Per patient, never underwent ablation * Investigation of previous admission and cardiology notes indicate patient with ablation 2012 for WPW (10) COPD (chronic obstructive pulmonary disease): * Per patient - never smoker, not on any home medications (11) Hyperlipidemia: * Stable * Continue Atorvastatin 10mg * Most recent lipid panel June 2018- Triglycerides 113, Cholesterol 85, LDL 25, HDL 37 (12) BPH (benign prostatic hyperplasia): * Stable. Patient continued finasteride during admission. (13) DVT prophylaxis: * SCDs during hospitalization. Xarelto held due to hx of bleeding/hematuria. Dispo: transfer to [facility] for TAVR, will need close follow-up after discharge Total Time Total Time Spent Total Time Spent (In Minutes): 75 Total Time Includes: Examination of the Patient, Discharge Planning, Medication Reconciliation, Communication With Other Providers and Other Discharge Plan Discharge Items Patient Disposition: Transfer Acute Care Hospital Reason For Visit: AFIB RVR,CHF Discharge Diagnosis: Severe Aortic Stenosis, Acute Diastolic Heart Failure Health Concerns: Patient with critically stenosed aortic valve- Patient initially completed part of the work-up for TAVR, but was lost in f ollow-up after Cardiac Catheterization in July 2018. Since that time, patient with worsening diastolic heart failure with significantly reduced ejection fraction and hypokinetic motion as well as critically stenotic aortic valve, which has worsened his heart failure and resulted in atrial fibrillation with rvr on admission. Goals: TAVR Improve function, quality of life Activity: As commented below Activity Comment: As tolerated Lifting: Gradually increase as tolerated Weightbearing: Full weightbearing Weightbearing Comment: As tolerated Non-emergency contact: Primary Care Provider Call non-emergency contact if: you have any medication questions Follow-up/Referrals: Ezio Thao MD [Primary Care Provider] - Diet: Carb Consistent or DM2 and Heart Healthy Addtl Attending Provider Instructions: You are being transferred to [facility] for an aortic valve replacement due to critical aortic stenosis. Please follow-up as advised by [place] upon discharge Pending Studies at Discharge: No Stand-Alone Forms: My [facility] Skilled Items Patient informed of condition?: Yes DNR: No Discharge Level of Care: Other Communicable Disease: No Discharge Prognosis: Other Lines: Saline Lock Urinary Catheter: No Medications and DC Order Prescriptions: New metoprolol succinate 25 mg Tablet Extended Release 24 Hr 25 mg PO QAM 30 Days Qty: 30 RF: 0 potassium chloride [Klor-Con M20] 20 mEq Tablet,Er Particles/Crystals 20 meq PO DAILY 30 Days Qty: 30 RF: 0 Continued BD AutoShield Duo Pen Needle 30 gauge x 3/16" needle .ROUTE .MEDSUPPLY Qty: 100 RF: 3 Basaglar KwikPen U-100 Insulin 100 unit/mL (3 mL) insulin pen 22 units subcut UD Qty: 15 RF: 3 glimepiride 4 mg tablet 4 mg PO QAM Qty: 90 RF: 3 atorvastatin 10 mg tablet 10 mg PO QPM Qty: 90 RF: 1 metformin 1,000 mg tablet 1,000 mg PO DAILY Qty: 30 RF: 2 finasteride 5 mg tablet 5 mg PO DAILY RF: 0 doxazosin 2 mg tablet 2 mg PO DAILY RF: 0 ergocalciferol (vitamin D2) [Vitamin D2] 50,000 unit Capsule 50,000 unit PO Q7D RF: 0 aspirin [Aspir-81] 81 mg Tablet,Delayed Release (Dr/Ec) 81 mg PO DAILY RF: 0 furosemide [Lasix] 40 mg Tablet 40 mg PO DAILY RF: 0 potassium chloride 20 mEq Tablet Extended Release 1 meq PO DAILY RF: 0 Discontinued amlodipine 10 mg tablet 10 mg PO DAILY Qty: 90 RF: 1 Discharge Orders: Discharge Order (Routine); Ordered 11/07/18 Ordered By: Korin Ziegler Admission Data Admit Date/Time: 11/06/18 11:23 Attending Provider: Werner Hanna Admit Provider: Werner Hanna Primary Care Provider: Ezio Thao Other Providers: Abdiel Rodriges ; Modesto Alejo Other Interventions: Discharge Summary Assessment (RN) Last Done: 11/07/18 16:09 DC Date/Time DO NOT enter until pt leaves facility: 11/07/18 23:52 Supervising Physician Co-Signing Physician Notes Attending Attestation and Admission Note: Pt seen/examined, chart reviewed, discharge care plan d/w PA Korin Ziegler. I agree w/ the melchor components of her discharge documentation. 82yo male with known severe awaiting TAVR, COPD, permanent a.fib not on anticoagulation, T2DM - who presented with rapid a.fib and decompensated CHF. Repeat echo with marked change in EF - now 30-35% - and now critical . Was given gentle diuresis while hospitalized with improvement in congestion. Seen by [facility] - Dr Edwards - beta federica added; diuresis advised; urgent transfer to tertiary care advised. Spoke with CT surgery, Dr Eckert, and nurse gynecology Dr Cadena at [facility] - both agreed patient should be transferred. Dr Cadena accepted Mr Amador onto his service for ongoing care. Vitals - HR <100, BP low-normal gen - obese, dyspnea improved neck - unable to assess JVD due to body habitus/large neck heart - irregular, regular rate, s1, s2 not heard, 2/6 holosystolic murmur heard loudest at RUSB lungs - bibasilar rales (fine) w/ decreased BS but overall improved abd - obese soft ext - no edema A/P: 1. permanent a.fib, not on anticoagulation, with RVR - improved 2. decompensated CHF - volume status improved s/p diuresis 3. severe - now critical with LV dysfunction - transferring to [facility] for consideration of TAVR 4. noncompliance 5. BPH 6. T2DM 7. obesity with BMI 38 8. COPD 9. CAD as seen on cath 07/2018 Werner Hanna MD
[2018-11-07] MEDS: ATORVASTATIN 10 MG TAB PO SCH (20:41)
[2018-11-07] MEDS ORDERED: INSULIN GLARGINE SOLOSTAR 100 UNITS/ML 3 ML PEN SC SCH (21:00)
[2018-11-08 06:04] LABS: Estimated Average Glucose 174 mg/dl; Hemoglobin A1C 7.7 % (4.5-5.6)
== END 2018-11-07 23:52 | disposition short-term general hospital (02) | DRG 306 ==
LOC: ED 08:14 → 2E 11:23

== ENCOUNTER 2019-07-28 13:56 | Inpatient (IN) ==
[2019-07-28 14:56] LABS: Basophils # (auto) 0.03 K/uL (0-0.2); Basophils % (auto) 0.3 %; Eosinophils # (auto) 0.09 K/uL (0-0.5); Eosinophils % (auto) 0.8 %; Hematocrit (blood only) 43.6 % (42-52); Hemoglobin 13.9 g/dL (14.0-18.0); Immature Granulocytes # (auto) 0.04 K/uL (0.00-0.02); Immature Granulocytes % (auto) 0.3 %; Lymphocytes # (auto) 1.06 K/uL (1.2-3.4); Mean Corpuscular Hgb Conc 31.9 g/dL (32-36); Mean Corpuscular Volume 87.9 fL (80-100); Mean Platelet Volume 11.4 fL (7.4-10.4); Monocytes # (auto) 0.98 K/uL (0.11-0.59); Monocytes % (auto) 8.3 %; Neutrophils # (auto) 9.58 K/uL (1.4-6.5); Neutrophils % (auto) 81.3 %; Platelet Count 195 K/uL (130-400); RDW Coefficient of Variation 16.9 % (11.5-14.5); RDW Standard Deviation 54.2 fL (36.4-46.3); Red Blood Count 4.96 M/uL (4.7-6.1); White Blood Count 11.78 K/uL (4.8-10.8)
[2019-07-28 15:06] LABS: INR 1.2 (0.9-1.1); Partial Thromboplastin Ratio 0.9; Partial Thromboplastin Time 25.2 Seconds (21.0-31.0); Prothrombin Time 12.4 Seconds (9.0-12.0)
[2019-07-28 15:08] LABS: Base Excess VBG 1.1 mEq/L; HCO3 VBG 27 mmol/L; PCO2 VBG 47 mmHg (38-50); PO2 VBG 33 mmHg; pH VBG 7.38 (7.36-7.41)
[2019-07-28 15:09] LABS: Oxygen Saturation VBG < 60.0 %
--- NOTE | 2019-07-28 15:09 | Emergency Department Note ---
Impression & Plan Respiratory failure, acute, Permanent atrial fibrillation, Aortic stenosis, Hypertension, Coronary artery disease, LBBB (left bundle branch block), CHF (congestive heart failure) ED Provider Note NAME: GODWIN GLEASON AGE: 83 SEX: M : 1935 ARRIVES VIA: Walk-In INFORMANT: Patient ED PROVIDER(S): Oracio Rivera DO CHIEF COMPLAINT: Shortness of breath HPI: Patient is a 3-year-old male with a past medical history of CHF, bovine aortic valve replacement, COPD and A. fib with RVR that presents the ER for shortness of breath. This started suddenly this morning. Patient denies any cough runny nose or sore throat. He notes that he has actually lost weight and not gained weight. He does note that he does have some increased swelling in his legs. He has had this before in the past. He denies any headache, change in vision, chest pain, nausea, vomiting, diarrhea. No dysuria urgency or frequency. No other exacerbating or remitting factors. ROS: See above HPI for pertinent positives & negatives. A total of 10 systems reviewed and were otherwise negative. PAST MEDICAL HISTORY:See Below PAST SURGICAL HISTORY:See Below FAMILY HISTORY:See Below SOCIAL HISTORY:See Below HOME MEDICATIONS:See Below ALLERGIES:See Below VITALS:See Below PHYSICAL EXAMINATION: GENERAL: Sitting up in bed, alert, ill-appearing, dyspneic with conversation EYE EXAM: normal conjunctiva. OROPHARYNX: no exudate, no erythema, lips, buccal mucosa, and tongue normal and mucous membranes are dry NECK: supple, no nuchal rigidity, no adenopathy, non-tender LUNGS: Diminished bilaterally. Normal chest wall mechanics HEART: Distant, S1 normal and S2 normal ABDOMEN: abdomen soft, non-tender, normo-active bowel sounds, no masses, no rebound or guarding. BACK: Back is symmetrical on inspection and there is no deformity, no midline tenderness, no CVA tenderness. SKIN: no rashes and no bruising UPPER EXTREMITIES: upper extremities are grossly normal. LOWER EXTREMITIES: Bilateral pitting edema NEURO EXAM: Normal sensorium, cranial nerves II-XII grossly intact, normal spe ech, no gross weakness of arms, no gross weakness of legs. MEDICAL DECISION MAKING: Patient is an 83-year-old gentleman with a past medical history of CHF, aortic valve replacement/TAVR/COPD, A. fib not on anticoagulation who presents the ER for sudden shortness of breath which started earlier today. He does have a history of COPD as well. Denies any smoking. IV was established blood work was obtained and shows a mild leukocytosis 11,000. No significant anemia. INR was unremarkable. VBG was unremarkable. BMP with creatinine of 1.5 slightly up from baseline. Lactate was elevated at 2.3. Bilirubin was slightly elevated at 1.9. He has no belly pain. Troponin was elevated 0.161 which is actually less than where he has been before in the past. He denies any chest pain. EKG did not appear to be changed from previous. He was placed on BiPAP upon arrival as he was significantly short of breath. He improved markedly. He remained on BiPAP throughout his stay in the ER. He was discussed with the hospitalist and admitted for further work-up. Triage Nursing notes reviewed. Prior medical records reviewed Vital Signs: reviewed and remarkable for tachycardic, hypoxic Differential diagnosis: Differential diagnoses includes but is not limited to pneumonia, bronchitis, COPD/Asthma exacerbation, pneumothorax, pulmonary embolism, congestive heart failure, acute coronary syndrome ER treatment provided: See below Diagnostics interpreted by me: ECG: A. fib with RVR rate of 103 PVCs present Normal axis Left bundle branch block Normal QTC Cardiac Monitoring: An order was placed for continuous cardiac monitoring. The monitor shows a rate of 114 with A. fib with RVR. Laboratory studies: As stated above and show below. Imaging studies: Portable AP upright 1 view of the chest shows cephalization. Consultation(s): Discussed with hospitalist for admission ED COURSE: Procedures: none Critical Care: I have personally spent 35 minutes of critical care time in the direct management of this patient. This includes bedside care, interpretation of diagnostic studies, and testing, discussion with consultants, patient, and family members, and other required patient management activities. This 35 minutes is in excess of all separately billable procedures. Past Med/Surg History Family History (Updated 07/28/19 @ 16:05 by Werner Hanna) Unknown Cancer Unknown Coronary heart disease Brother Patient's brother is Family Health Status Of Brother - Cirrhosis Pancreatic malignant neoplasm Malignant Pancreatic Neoplasm Father Heart disease question of Mother , of "old age" No problems noted. Social History (Updated 07/28/19 @ 16:04 by Werner R Siuta) Preferred Language: Japanese Communication Ability: Effective Mass Spec Required: No Beliefs That Will Affect Care: None marital status: Single Current Living Situation: Other Current Living Situation Comment: in [place] friend current occupational status: retired current occupation: worked for [employer] Other Information That Helps Us Care for You: No Feels Safe at Home: Yes Safety Concerns: Feels Safe At This Time Smoking Status: Never smoker Second Hand Exposure: No ; Hx Alcohol Use: No Hx Substance Use: No Allergies Allergies Allergy/AdvReac Type Severity Reaction Status Date / Time Iodinated Contrast Media Allergy Unknown HIVES Verified 07/28/19 17:20 amoxicillin [From Augmentin] Allergy Unknown Verified 07/28/19 17:20 clavulanic acid Allergy Unknown Verified 07/28/19 17:20 [From Augmentin] oxaprozin [From Daypro] Allergy Unknown Verified 07/28/19 17:20 sitagliptin [From Januvia] Allergy Unknown Verified 07/28/19 17:20 Home Meds Home Medications Medication Instructions Recorded Confirmed aspirin [Aspir-81] 81 mg PO DAILY 06/10/18 07/28/19 insulin glargine [Basaglar KwikPen 22 units SUBCUT HS 07/28/19 07/28/19 U-100 Insulin] magnesium chloride 64 mg PO DAILY 07/28/19 07/28/19 Previous Rx's Medication Instructions Recorded glimepiride 4 mg tablet 4 mg PO QAM #90 tab 10/18/18 blood sugar diagnostic #100 ea 12/06/18 budesonide-formoterol HFA 80 2 puffs INH BID #10.2 gm 02/21/19 mcg-4.5 mcg/actuation aerosol inhaler pen needle,diabetic dual safty 30 #100 ea 03/21/19 gauge x 3/16" furosemide 40 mg tablet 40 mg PO DAILY PRN #90 tab 04/15/19 metformin 1,000 mg tablet 1,000 mg PO DAILY #90 tab 04/29/19 clopidogrel 75 mg tablet 75 mg PO DAILY #90 tab 05/02/19 losartan 25 mg tablet 25 mg PO DAILY #90 tab 05/02/19 metoprolol succinate 50 mg 50 mg PO DAILY #90 tab 05/02/19 tablet,extended release 24 hr atorvastatin 40 mg tablet 40 mg PO DAILY #90 tab 05/19/19 potassium chloride 20 mEq 20 meq PO DAILY PRN #90 tab 06/13/19 tablet,extended release finasteride 5 mg tablet 5 mg PO DAILY #90 tab 07/20/19 Results & Data (ED) Vital Signs Vital Signs - 24 hr 07/28/19 13:58 07/28/19 14:04 07/28/19 14:09 Temperature 36.8 C Temperature Source Oral Pulse Rate 183 H 110 H Pulse Rate [Apical] 109 H Pulse Rate from SpO2 Sensor Pulse Rhythm Pulse Rhythm [Apical] Irregular Respiratory Rate 26 H 31 H 30 H Respiratory Effort / Characteristics Spontaneous Labored Non-Labored Spontaneous Respiratory Depth Normal Respiratory Pattern Regular Blood Pressure 154/112 H Blood Pressure [Right Arm] 154/112 H Blood Pressure Mean 123 Blood Pressure Mean [Right Arm] 126 Pulse Oximetry 85 L 95 Oxygen Delivery Method Room Air Nasal Cannula Oxygen Flow Rate 3 Fraction of Inspired Oxygen Sepsis Recent Fever Within 48 Hours No Sepsis New/Unexplained Change in Mental Status No Sepsis Action Taken by Nursing No Action Required 07/28/19 14:11 07/28/19 14:15 07/28/19 14:30 Temperature Temperature Source Pulse Rate 113 H 94 H Pulse Rate [Apical] Pulse Rate from SpO2 Sensor Pulse Rhythm Regular Pulse Rhythm [Apical] Respiratory Rate 30 H 34 H Respiratory Effort / Characteristics Spontaneous Respiratory Depth Normal Respiratory Pattern Regular Blood Pressure Blood Pressure [Right Arm] Blood Pressure Mean Blood Pressure Mean [Right Arm] Pulse Oximetry 95 95 100 Oxygen Delivery Method Nasal Cannula Nasal Cannula Nasal Cannula Oxygen Flow Rate 3 3 3 Fraction of Inspired Oxygen 40 Sepsis Recent Fever Within 48 Hours Sepsis New/Unexplained Change in Mental Status Sepsis Action Taken by Nursing 07/28/19 15:29 07/28/19 15:30 07/28/19 15:45 Temperature Temperature Source Pulse Rate 90 84 91 H Pulse Rate [Apical] Pulse Rate from SpO2 Sensor 92 H 87 92 H Pulse Rhythm Pulse Rhythm [Apical] Respiratory Rate 22 20 20 Respiratory Effort / Characteristics Respiratory Depth Respiratory Pattern Blood Pressure 120/84 149/84 H 144/86 H Blood Pressure [Right Arm] Blood Pressure Mean 100 100 97 Blood Pressure Mean [Right Arm] Pulse Oximetry 100 100 100 Oxygen Delivery Method BiPAP BiPAP BiPAP Oxygen Flow Rate Fraction of Inspired Oxygen Sepsis Recent Fever Within 48 Hours Sepsis New/Unexplained Change in Mental Status Sepsis Action Taken by Nursing 07/28/19 16:00 07/28/19 16:17 07/28/19 16:46 Temperature Temperature Source Pulse Rate 88 96 H 92 H Pulse Rate [Apical] Pulse Rate from SpO2 Sensor 93 H 98 H Pulse Rhythm Pulse Rhythm [Apical] Respiratory Rate 24 23 28 H Respiratory Effort / Characteristics Respiratory Depth Respiratory Pattern Blood Pressure 114/98 142/95 H 115/93 Blood Pressure [Right Arm] Blood Pressure Mean 104 104 99 Blood Pressure Mean [Right Arm] Pulse Oximetry 100 95 Oxygen Delivery Method BiPAP Room Air Oxygen Flow Rate Fraction of Inspired Oxygen Sepsis Recent Fever Within 48 Hours Sepsis New/Unexplained Change in Mental Status Sepsis Action Taken by Nursing 07/28/19 17:00 07/28/19 17:13 07/28/19 17:15 Temperature Temperature Source Pulse Rate 97 H 98 H 94 H Pulse Rate [Apical] Pulse Rate from SpO2 Sensor 99 H 97 H 96 H Pulse Rhythm Pulse Rhythm [Apical] Respiratory Rate 26 H 26 H 29 H Respiratory Effort / Characteristics Respiratory Depth Respiratory Pattern Blood Pressure 140/101 H 131/93 130/89 Blood Pressure [Right Arm] Blood Pressure Mean 122 106 106 Blood Pressure Mean [Right Arm] Pulse Oximetry 96 93 94 Oxygen Delivery Method Room Air Room Air Room Air Oxygen Flow Rate Fraction of Inspired Oxygen Sepsis Recent Fever Within 48 Hours Sepsis New/Unexplained Change in Mental Status Sepsis Action Taken by Nursing 07/28/19 17:29 Temperature Temperature Source Pulse Rate 94 H Pulse Rate [Apical] Pulse Rate from SpO2 Sensor Pulse Rhythm Pulse Rhythm [Apical] Respiratory Rate 29 H Respiratory Effort / Characteristics Respiratory Depth Respiratory Pattern Blood Pressure 130/89 Blood Pressure [Right Arm] Blood Pressure Mean Blood Pressure Mean [Right Arm] Pulse Oximetry 94 Oxygen Delivery Method Room Air Oxygen Flow Rate Fraction of Inspired Oxygen Sepsis Recent Fever Within 48 Hours Sepsis New/Unexplained Change in Mental Status Sepsis Action Taken by Nursing Laboratory Data Result diagrams: 07/28/19 14:39 07/28/19 14:39 Lab Results 07/28/19 07/28/19 07/28/19 Range/Units 14:39 14:39 14:39 WBC 11.78 H (4.8-10.8) K/uL RBC 4.96 (4.7-6.1) M/uL Hgb 13.9 L (14.0-18.0) g/dL Hct 43.6 (42-52) % MCV 87.9 (80-100) fL MCH 28.0 (25-34) pg MCHC 31.9 L (32-36) g/dL RDW Std Deviation 54.2 H (36.4-46.3) fL RDW Coeff of Tyson 16.9 H (11.5-14.5) % Plt Count 195 (130-400) K/uL MPV 11.4 H (7.4-10.4) fL Immature Gran % (Auto) 0.3 % Neut % (Auto) 81.3 % Lymph % (Auto) 9.0 % [place] % (Auto) 8.3 % Eos % (Auto) 0.8 % Baso % (Auto) 0.3 % Immature Gran # (Auto) 0.04 H (0.00-0.02) K/uL Neut # (Auto) 9.58 H (1.4-6.5) K/uL Lymph # (Auto) 1.06 L (1.2-3.4) K/uL [place] # (Auto) 0.98 H (0.11-0.59) K/uL Eos # (Auto) 0.09 (0-0.5) K/uL Baso # (Auto) 0.03 (0-0.2) K/uL PT 12.4 H (9.0-12.0) Seconds INR 1.2 H (0.9-1.1) APTT 25.2 (21.0-31.0) Seconds PTT Ratio 0.9 VBG pH (7.36-7.41) VBG pCO2 (38-50) mmHg VBG pO2 mmHg VBG HCO3 mmol/L VBG O2 Saturation % VBG Base Excess mEq/L Barometric Pressure mm/Hg Sodium 142 (136-145) mmol/L Potassium 4.5 (3.5-5.1) mmol/L Chloride 109 H (98-107) mmol/L Carbon Dioxide 26 (21-32) mmol/L Anion Gap 7.0 (3-11) BUN 22 H (7-18) mg/dl Creatinine 1.52 H (0.6-1.4) mg/dl Est Cr Clr Drug Dosing 42.2 ml/min Est GFR ( Amer) 48.8 Est GFR (Non-Af Amer) 42.1 BUN/Creatinine Ratio 14.3 (10-20) Glucose 130 H (70-99) mg/dl Lactate (0.4-2.0) mmol/L Calcium 9.0 (8.5-10.1) mg/dl Magnesium 1.9 (1.8-2.4) mg/dl Total Bilirubin 1.9 H (0.2-1) mg/dl AST 45 H (15-37) U/L ALT 44 (12-78) U/L Alkaline Phosphatase 98 (45-117) U/L Troponin I 0.161 H* (0-0.045) ng/ml NT-Pro-B Natriuret Pep 9223 H (0-1800) pg/ml Total Protein 7.0 (6.4-8.2) gm/dl Albumin 3.2 L (3.4-5.0) gm/dl Globulin 3.8 (2.5-4.0) gm/dl Albumin/Globulin Ratio 0.8 L (0.9-2) 07/28/19 07/28/19 07/28/19 Range/Units 14:39 14:39 14:39 WBC (4.8-10.8) K/uL RBC (4.7-6.1) M/uL Hgb (14.0-18.0) g/dL Hct (42-52) % MCV (80-100) fL MCH (25-34) pg MCHC (32-36) g/dL RDW Std Deviation (36.4-46.3) fL RDW Coeff of Tyson (11.5-14.5) % Plt Count (130-400) K/uL MPV (7.4-10.4) fL Immature Gran % (Auto) % Neut % (Auto) % Lymph % (Auto) % [place] % (Auto) % Eos % (Auto) % Baso % (Auto) % Immature Gran # (Auto) (0.00-0.02) K/uL Neut # (Auto) (1.4-6.5) K/uL Lymph # (Auto) (1.2-3.4) K/uL [place] # (Auto) (0.11-0.59) K/uL Eos # (Auto) (0-0.5) K/uL Baso # (Auto) (0-0.2) K/uL PT (9.0-12.0) Seconds INR (0.9-1.1) APTT (21.0-31.0) Seconds PTT Ratio VBG pH 7.38 (7.36-7.41) VBG pCO2 47 (38-50) mmHg VBG pO2 33 mmHg VBG HCO3 27 mmol/L VBG O2 Saturation < 60.0 % VBG Base Excess 1.1 mEq/L Barometric Pressure 734.3 mm/Hg Sodium (136-145) mmol/L Potassium (3.5-5.1) mmol/L Chloride (98-107) mmol/L Carbon Dioxide (21-32) mmol/L Anion Gap (3-11) BUN (7-18) mg/dl Creatinine (0.6-1.4) mg/dl Est Cr Clr Drug Dosing ml/min Est GFR ( Amer) Est GFR (Non-Af Amer) BUN/Creatinine Ratio (10-20) Glucose (70-99) mg/dl Lactate 2.7 H* (0.4-2.0) mmol/L Calcium (8.5-10.1) mg/dl Magnesium (1.8-2.4) mg/dl Total Bilirubin (0.2-1) mg/dl AST (15-37) U/L ALT (12-78) U/L Alkaline Phosphatase (45-117) U/L Troponin I (0-0.045) ng/ml NT-Pro-B Natriuret Pep Cancelled (0-1800) pg/ml Total Protein (6.4-8.2) gm/dl Albumin (3.4-5.0) gm/dl Globulin (2.5-4.0) gm/dl Albumin/Globulin Ratio (0.9-2) 18 Range/Units 16:33 WBC (4.8-10.8) K/uL RBC (4.7-6.1) M/uL Hgb (14.0-18.0) g/dL Hct (42-52) % MCV (80-100) fL MCH (25-34) pg MCHC (32-36) g/dL RDW Std Deviation (36.4-46.3) fL RDW Coeff of Tyson (11.5-14.5) % Plt Count (130-400) K/uL MPV (7.4-10.4) fL Immature Gran % (Auto) % Neut % (Auto) % Lymph % (Auto) % [place] % (Auto) % Eos % (Auto) % Baso % (Auto) % Immature Gran # (Auto) (0.00-0.02) K/uL Neut # (Auto) (1.4-6.5) K/uL Lymph # (Auto) (1.2-3.4) K/uL [place] # (Auto) (0.11-0.59) K/uL Eos # (Auto) (0-0.5) K/uL Baso # (Auto) (0-0.2) K/uL PT (9.0-12.0) Seconds INR (0.9-1.1) APTT (21.0-31.0) Seconds PTT Ratio VBG pH (7.36-7.41) VBG pCO2 (38-50) mmHg VBG pO2 mmHg VBG HCO3 mmol/L VBG O2 Saturation % VBG Base Excess mEq/L Barometric Pressure mm/Hg Sodium (136-145) mmol/L Potassium (3.5-5.1) mmol/L Chloride (98-107) mmol/L Carbon Dioxide (21-32) mmol/L Anion Gap (3-11) BUN (7-18) mg/dl Creatinine (0.6-1.4) mg/dl Est Cr Clr Drug Dosing ml/min Est GFR ( Amer) Est GFR (Non-Af Amer) BUN/Creatinine Ratio (10-20) Glucose (70-99) mg/dl Lactate 2.3 H* (0.4-2.0) mmol/L Calcium (8.5-10.1) mg/dl Magnesium (1.8-2.4) mg/dl Total Bilirubin (0.2-1) mg/dl AST (15-37) U/L ALT (12-78) U/L Alkaline Phosphatase (45-117) U/L Troponin I (0-0.045) ng/ml NT-Pro-B Natriuret Pep (0-1800) pg/ml Total Protein (6.4-8.2) gm/dl Albumin (3.4-5.0) gm/dl Globulin (2.5-4.0) gm/dl Albumin/Globulin Ratio (0.9-2) Administered Medications Discontinued Medications Furosemide (Lasix) 40 mg IV NOW STA Stop: 07/28/19 16:19 Last Admin: 07/28/19 17:18 Dose: 40 mg Documented by: [id number] Discharge Plan Visit Data Chief Complaint: Shortness of Breath/Dyspnea Stated Complaint: SEVERE SOB,HTN ED Provider: Oracio Rivera Discharge Problem: Respiratory failure, acute, Permanent atrial fibrillation, Aortic stenosis, Hypertension, Coronary artery disease, LBBB (left bundle branch block), CHF (congestive heart failure) Discharge Instructions Interventions: ED Discharge Assessment Last Done: 07/28/19 17:29 Forms Stand Alone Forms: [facility] [place] Prescriptions Prescriptions: No Action glimepiride 4 mg tablet 4 mg PO QAM Qty: 90 RF: 3 (DME) OneTouch Ultra Blue Test Strip strip See Dose Instructions .ROUTE .MEDSUPPLY Qty: 100 RF: 0 Symbicort 80-4.5 mcg/actuation HFA aerosol inhaler 2 puffs INH BID Qty: 10.2 RF: 4 (DME) BD AutoShield Duo Pen Needle 30 gauge x 3/16" needle See Dose Instructions .ROUTE .MEDSUPPLY Qty: 100 RF: 3 furosemide 40 mg tablet 40 mg PO DAILY PRN (Reason: weight gain) Qty: 90 RF: 3 metformin 1,000 mg tablet 1,000 mg PO DAILY Qty: 90 RF: 1 metoprolol succinate 50 mg tablet extended release 24 hr 50 mg PO DAILY Qty: 90 RF: 3 losartan 25 mg tablet 25 mg PO DAILY Qty: 90 RF: 3 clopidogrel [Plavix] 75 mg tablet 75 mg PO DAILY Qty: 90 RF: 3 potassium chloride 20 mEq tablet extended release 20 meq PO DAILY PRN (Reason: for weight gain with lasix) Qty: 90 RF: 1 finasteride 5 mg tablet 5 mg PO DAILY Qty: 90 RF: 1 atorvastatin 40 mg tablet 40 mg PO DAILY Qty: 90 RF: 3 aspirin [Aspir-81] 81 mg Tablet,Delayed Release (Dr/Ec) 81 mg PO DAILY RF: 0 magnesium chloride 64 mg Tablet,Delayed Release (Dr/Ec) 64 mg PO DAILY RF: 0 Basaglar KwikPen U-100 Insulin 100 unit/mL (3 mL) insulin pen 22 units subcut HS RF: 0 Referrals Referrals: Ezio Thao MD [Primary Care Provider] - Discharge Problem: Respiratory failure, acute Qualifiers: Respiratory failure complication: hypoxia Qualified Code(s): J96.01 - Acute respiratory failure with hypoxia Aortic stenosis Qualifiers: Cardiac valve disease etiology: etiology unspecified Qualified Code(s): I35.0 - Nonrheumatic aortic (valve) stenosis Hypertension Qualifiers: Hypertension type: unspecified Qualified Code(s): I10 - Essential (primary) hypertension Coronary artery disease Qualifiers: Coronary Disease-Associated Artery/Lesion type: unspecified vessel or lesion type [place] vs. transplanted heart: unspecified whether [place] or transplanted heart Associated angina: with unspecified angina Qualified Code(s): I25.119 - Atherosclerotic heart disease of [place] coronary artery with unspecified angina pectoris CHF (congestive heart failure) Qualifiers: Heart failure type: unspecified Heart failure chronicity: unspecified Qualified Code(s): I50.9 - Heart failure, unspecified
[2019-07-28 15:14] LABS: Albumin Level 3.2 gm/dl (3.4-5.0); BUN Creatinine Ratio 14.3 (10-20); Creatinine Clr Calc Pharmacy 42.2 ml/min; Est GFR (African American) 48.8; Est GFR (Non-African American) 42.1; Magnesium 1.9 mg/dl (1.8-2.4); Potassium 4.5 mmol/L (3.5-5.1)
--- NOTE | 2019-07-28 15:26 | XRay Report ---
SINGLE VIEW CHEST CLINICAL HISTORY: Sepsis. FINDINGS: An AP, portable, upright chest radiograph is compared to study dated 11/06/2018. The examina tion is degraded by portable technique and patient rotation. The heart is markedly enlarged noting at herosclerotic calcification of the thoracic aorta. There is pulmonary vascular congestion. Bibasilar airspace opacities likely represent atelectasis. No large pleural effusion is identified. No pneumoth orax is seen. The skeletal structures are osteopenic. The bony thorax is grossly intact. IMPRESSION: 1. Cardiomegaly with evidence of mild congestive failure. 2. Bibasilar opacities likely represent atelectasis. Clinical correlation will be required. ACT 112: Negative or not required by law. Electronically signed by: John Pierre M.D. 07/28/2019 3:24 PM
[2019-07-28 15:31] LABS: Albumin Globulin Ratio 0.8 (0.9-2); Bilirubin,Total 1.9 mg/dl (0.2-1); Globulin 3.8 gm/dl (2.5-4.0); Troponin I 0.161 ng/ml (0-0.045)
--- NOTE | 2019-07-28 16:05 | History & Physical Report ---
Date of Service July 28, 2019 Assessment & Plan (1) Acute respiratory failure with hypoxia: Symptoms, cxr findings, and presentation initially were concerning for acute/chronic systolic CHF. However, he had very little response to IV lasix. I repeated a lung exam after he got to the floor. Despite overall clear lungs he still had significant tachypnea, retractions, etc with any activity. Records suggest h/o COPD (and he takes symbicort) but he disputed this diagnosis. Further, he had no wheezing on exam. I am uncertain as to the exact etiology of his presentation. Thus, I do think PE needs to be ruled out despite negative dopplers of legs. Has contrast allergy. Start prednisone 50mg q8h for 3 doses then CTA chest. If he has any significant bronchospastic component/bronchial component this certainly will help. Will empirically cover for PE with heparin drip while awaiting the CTA. If CTA returns negative then heparin can be stopped. Check procalcitonin and crp to see if this is an infectious process of the lung. If these are elevated consider [employer] respiratory panel, etc. (2) Chronic systolic CHF (congestive heart failure): Initially thought to be acute/chronic systolic CHF but very little diuresis with IV lasix which calls into question if truly hypervolemic. Hold off on additional diuretics at this time. CTA chest. Cont BB. hold ARB as BPs are low-normal at times. (3) Acute kidney injury: Cr 1.5; baseline about 1. uncertain etiology. initially thought his volume status was up but no response to lasix. repeat BMP in am. consider renal u/s if any worsening of renal function. (4) Permanent atrial fibrillation: (5) Hypertension: Cont BB Hold ARB for now (6) Coronary artery disease: h/o cath in 07/2018 - various stenotic areas, 30-50% medical management recommended cont BB, asa, plavix hold statin for now troponin minimally elevated - doubt ACS (7) LBBB (left bundle branch block): chronic, old (8) Diabetes mellitus, type II: hold oral agents cont lantus novolog correction/carb coverage BSGs ac/hs DM diet (9) BPH (benign prostatic hyperplasia): cont finasteride and alpha federica (10) Elevated troponin: serial troponins doubt ACS; likely myocardial demand ischemia in setting of acute resp failure (11) COPD (chronic obstructive pulmonary disease): records suggest this diagnosis, and he is on symbicort BID he questioned the diagnosis however no wheezing on exam today however, in light of significant increased work of breathing, will add combivent (12) History of aortic valve replacement: s/p TAVR 2019 - [facility] post-op echo w/ good valve function (13) Hyperlipidemia: hold statin - LFTs minimally elevated today uncertain etiology for LFT abnormality (14) DVT prophylaxis: to be placed on heparin infusion as noted above friend was updated at bedside today History of Present Illness Chief Complaint: difficulty breathing Primary Care Provider: Ezio Thao MD 83yo male with h/o severe , [place] [facility] [place] chronic systolic CHF with EF 25%; permanent a.fib; COPD; T2DM; and LBBB who presents with worsening dyspnea starting some time yesterday. Then, overnight, he had wheezing and orthopnea. He woke up in the middle of the night with dyspnea and propped himself on pillows to help his breathing. He has chronic LE edema which he states is unchanged from baseline. Had a cough with sputum about 2 weeks ago but this is resolved. Upon awakening this am he had severe dyspnea with minimal activity. Denies any fevers. No chest pain. Normal appetite of late. Denies excessive salt intake. Denies weight gain; in fact has lost weight (intentional, for health purposes). Denies abdominal bloating. He does not know if he has been taking his lasix. Allergies Allergy/AdvReac Type Severity Reaction Status Date / Time Iodinated Contrast Media Allergy Unknown HIVES Verified 07/28/19 17:20 amoxicillin [From Augmentin] Allergy Unknown Verified 07/28/19 17:20 clavulanic acid Allergy Unknown Verified 07/28/19 17:20 [From Augmentin] oxaprozin [From Daypro] Allergy Unknown Verified 07/28/19 17:20 sitagliptin [From Januvia] Allergy Unknown Verified 07/28/19 17:20 Home Medications Home Medications Medication Instructions Recorded Confirmed Type aspirin [Aspir-81] 81 mg PO DAILY 06/10/18 07/28/19 History glimepiride 4 mg tablet 4 mg PO QAM #90 tab 10/18/18 07/28/19 Rx blood sugar diagnostic #100 ea 12/06/18 07/28/19 Rx budesonide-formoterol HFA 80 2 puffs INH BID #10.2 gm 02/21/19 07/28/19 Rx mcg-4.5 mcg/actuation aerosol inhaler pen needle,diabetic dual safty 30 #100 ea 03/21/19 07/28/19 Rx gauge x 3/16" furosemide 40 mg tablet 40 mg PO DAILY PRN #90 tab 04/15/19 07/28/19 Rx metformin 1,000 mg tablet 1,000 mg PO DAILY #90 tab 04/29/19 07/28/19 Rx clopidogrel 75 mg tablet 75 mg PO DAILY #90 tab 05/02/19 07/28/19 Rx losartan 25 mg tablet 25 mg PO DAILY #90 tab 05/02/19 07/28/19 Rx metoprolol succinate 50 mg 50 mg PO DAILY #90 tab 05/02/19 07/28/19 Rx tablet,extended release 24 hr atorvastatin 40 mg tablet 40 mg PO DAILY #90 tab 05/19/19 07/28/19 Rx potassium chloride 20 mEq 20 meq PO DAILY PRN #90 tab 06/13/19 07/28/19 Rx tablet,extended release finasteride 5 mg tablet 5 mg PO DAILY #90 tab 07/20/19 07/28/19 Rx insulin glargine [Basaglar KwikPen 22 units SUBCUT HS 07/28/19 07/28/19 History U-100 Insulin] magnesium chloride 64 mg PO DAILY 07/28/19 07/28/19 History Past Med/Surg History Medical History (Updated 07/28/19 @ 21:57 by Werner Hanna) Aortic stenosis (Chronic) Symptomatic, severe, with ORACIO 0.8cm2, mean gradient 35mmHg, Ao V2: 3.6m/s; Awaiting CT surgery evaluation. Followed by cardiology. Acute on chronic CHF exacerbation 06/27 felt to be due to disease. Managed with furosemide 40mg thiago ly PRN to maintain body weight at 255lbs BPH (benign prostatic hyperplasia) BPH (benign prostatic hyperplasia) Managed with finasteride + doxazosin. Followed by urology Chronic systolic CHF (congestive heart failure) COPD (chronic obstructive pulmonary disease) COPD (chronic obstructive pulmonary disease) Coronary artery disease (Chronic) Catheterization (07/28) 30% left main, sequential 50% stenoses in the mid and distal LAD, and a 30% distal RCA stenosis. CT surgery evaluation pending given severe . Managed with ASA + statin + atenolol. Followed by cardiology. Diabetes Diabetes mellitus, type II (Chronic) Controlled, insulin dependent. Managed with glargine 22u QHS + metformin. HbA1c 5.7% (04/27). Dyslipidemia Hyperlipidemia Hypertension (Chronic) Long standing. Managed with atenolol LBBB (left bundle branch block) (Chronic) Paroxysmal A-fib Permanent atrial fibrillation (Chronic) Diagnosed 06/25. Rate controlled with atenolol 100mg daily. Previously AC via rivaroxaban. Discontinued due to BRBPR. Declined EGD/Colonocscopy. Now on ASA 81mg Severe aortic stenosis Kxpwj-Sxqmosrvy-Dthzy (WPW) pattern (Chronic) Fttwb-Miavatknz-Rxyrq pattern (Resolved 01/07/12) Surgical History (Updated 07/28/19 @ 21:57 by Werner Hanna) H/O Mohs micrographic surgery for skin cancer History of aortic valve replacement (Inactive) History of testicular surgery enlarged testes Status post transcatheter aortic valve replacement (TAVR) using bioprosthesis 11/2018 at [facility] Family History (Updated 07/28/19 @ 16:05 by Werner Hanna) Unknown Cancer Unknown Coronary heart disease Brother Patient's brother is Family Health Status Of Brother - Cirrhosis Pancreatic malignant neoplasm Malignant Pancreatic Neoplasm Father Heart disease question of Mother , of "old age" No problems noted. Social History (Updated 07/28/19 @ 16:04 by Werner Hanna) Preferred Language: Italian Communication Ability: Effective Fitting Room Maintenance Mechanic Required: No Beliefs That Will Affect Care: None marital status: Single Current Living Situation: Other Current Living Situation Comment: in [place] with friend current occupational status: retired current occupation: worked for [employer] Other Information That Helps Us Care for You: No Feels Safe at Home: Yes Safety Concerns: Feels Safe At This Time Smoking Status: Never smoker Second Hand Exposure: No ; Hx Alcohol Use: No Hx Substance Use: No Review of Systems Constitutional: no fever, no chills, no fatigue and no anorexia Eyes: no worsening vision Ear, Nose, Mouth, Throat: + nasal discharge; no sore throat and no dysphagia Respiratory: + dyspnea and + dyspnea on exertion; no sputum production and no wheezing Cardiovascular: + orthopnea, + paroxysmal nocturnal dyspnea, + palpitations and + edema; no chest pain Gastrointestinal: no abdominal pain, no nausea and no vomiting Genitourinary: no dysuria Musculoskeletal: + joint pain (knees) Integumentary: no rash Neurologic: no loss of sensation Psychiatric: no depression Endocrine: doesn't check blood sugars Physical Exam Constitutional: + acute distress (tachypnea, retractions (subcostal)); no altered mental status BIPAP mask in place Eyes: + anicteric sclerae and PERRL ENMT: Mouth: no oropharynx abnormality, no oral mucosal abnormality and oral mucous membranes not dry Neck: trachea midline, no thyromegaly Respiratory: + respiratory distress, + labored breathing, + retractions and + tachypneic Auscultation: + diminished lung sounds (bases); no crackles and no wheezes Cardiovascular: Rate/Rhythm: + tachycardic and + irregularly irregular Heart Sounds: normal S1 and normal S2; no murmur Vessels: posterior tibial pulses present and dorsalis pedis pulses present; no JVD (due to neck size very difficult to assess JVD) Extremities: + edema (1-2+ b/l legs and feet) Gastrointestinal (Abdomen): normal bowel sounds, soft, nontender, no hepatosplenomegaly Musculoskeletal: no cyanosis or clubbing, extremities motor strength 5/5 Skin: no rashes, warm and dry Neurologic: deep tendon reflexes 2+ bilaterally and moves all extremities Psychiatric: A+Ox3, euthymic affect Lymphatic: no cervical lymphadenopathy Results & Data Results & Data ([facility]) Vital Signs (Past 12 Hours) Vital Signs Temp Pulse Pulse Resp BP Pulse Ox 07/28/19 14:30 94 H 34 H 100 07/28/19 14:15 113 H 30 H 95 07/28/19 14:11 95 07/28/19 14:09 109 H 30 H 154/112 H 95 07/28/19 13:58 36.8 C 183 H 26 H 85 L Laboratory Results Laboratory Results - last 24 hr 07/28/19 07/28/19 07/28/19 14:39 14:39 14:39 WBC 11.78 H RBC 4.96 Hgb 13.9 L Hct 43.6 MCV 87.9 MCH 28.0 MCHC 31.9 L RDW Std Deviation 54.2 H RDW Coeff of Tyson 16.9 H Plt Count 195 MPV 11.4 H Immature Gran % (Auto) 0.3 Neut % (Auto) 81.3 Lymph % (Auto) 9.0 [place] % (Auto) 8.3 Eos % (Auto) 0.8 Baso % (Auto) 0.3 Immature Gran # (Auto) 0.04 H Neut # (Auto) 9.58 H Lymph # (Auto) 1.06 L [place] # (Auto) 0.98 H Eos # (Auto) 0.09 Baso # (Auto) 0.03 PT 12.4 H INR 1.2 H APTT 25.2 PTT Ratio 0.9 VBG pH VBG pCO2 VBG pO2 VBG HCO3 VBG O2 Saturation VBG Base Excess Barometric Pressure Sodium 142 Potassium 4.5 Chloride 109 H Carbon Dioxide 26 Anion Gap 7.0 BUN 22 H Creatinine 1.52 H Est Cr Clr Drug Dosing 42.2 Est GFR ( Amer) 48.8 Est GFR (Non-Af Amer) 42.1 BUN/Creatinine Ratio 14.3 Glucose 130 H POC Glucose Lactate Calcium 9.0 Magnesium 1.9 Total Bilirubin 1.9 H AST 45 H ALT 44 Alkaline Phosphatase 98 Troponin I 0.161 H* C-Reactive Protein NT-Pro-B Natriuret Pep 9223 H Total Protein 7.0 Albumin 3.2 L Globulin 3.8 Albumin/Globulin Ratio 0.8 L Procalcitonin 07/28/19 07/28/19 07/28/19 14:39 14:39 14:39 WBC RBC Hgb Hct MCV MCH MCHC RDW Std Deviation RDW Coeff of Tyson Plt Count MPV Immature Gran % (Auto) Neut % (Auto) Lymph % (Auto) [place] % (Auto) Eos % (Auto) Baso % (Auto) Immature Gran # (Auto) Neut # (Auto) Lymph # (Auto) [place] # (Auto) Eos # (Auto) Baso # (Auto) PT INR APTT PTT Ratio VBG pH 7.38 VBG pCO2 47 VBG pO2 33 VBG HCO3 27 VBG O2 Saturation < 60.0 VBG Base Excess 1.1 Barometric Pressure 734.3 Sodium Potassium Chloride Carbon Dioxide Anion Gap BUN Creatinine Est Cr Clr Drug Dosing Est GFR ( Amer) Est GFR (Non-Af Amer) BUN/Creatinine Ratio Glucose POC Glucose Lactate 2.7 H* Calcium Magnesium Total Bilirubin AST ALT Alkaline Phosphatase Troponin I C-Reactive Protein NT-Pro-B Natriuret Pep Cancelled Total Protein Albumin Globulin Albumin/Globulin Ratio Procalcitonin 07/28/19 07/28/19 07/28/19 16:33 19:38 20:26 WBC RBC Hgb Hct MCV MCH MCHC RDW Std Deviation RDW Coeff of Tyson Plt Count MPV Immature Gran % (Auto) Neut % (Auto) Lymph % (Auto) [place] % (Auto) Eos % (Auto) Baso % (Auto) Immature Gran # (Auto) Neut # (Auto) Lymph # (Auto) [place] # (Auto) Eos # (Auto) Baso # (Auto) PT INR APTT PTT Ratio VBG pH VBG pCO2 VBG pO2 VBG HCO3 VBG O2 Saturation VBG Base Excess Barometric Pressure Sodium Potassium Chloride Carbon Dioxide Anion Gap BUN Creatinine Est Cr Clr Drug Dosing Est GFR ( Amer) Est GFR (Non-Af Amer) BUN/Creatinine Ratio Glucose POC Glucose 93 Lactate 2.3 H* Calcium Magnesium Total Bilirubin AST ALT Alkaline Phosphatase Troponin I 0.177 H* C-Reactive Protein < 0.29 NT-Pro-B Natriuret Pep Total Protein Albumin Globulin Albumin/Globulin Ratio Procalcitonin 07/28/19 20:26 WBC RBC Hgb Hct MCV MCH MCHC RDW Std Deviation RDW Coeff of Tyson Plt Count MPV Immature Gran % (Auto) Neut % (Auto) Lymph % (Auto) [place] % (Auto) Eos % (Auto) Baso % (Auto) Immature Gran # (Auto) Neut # (Auto) Lymph # (Auto) [place] # (Auto) Eos # (Auto) Baso # (Auto) PT INR APTT PTT Ratio VBG pH VBG pCO2 VBG pO2 VBG HCO3 VBG O2 Saturation VBG Base Excess Barometric Pressure Sodium Potassium Chloride Carbon Dioxide Anion Gap BUN Creatinine Est Cr Clr Drug Dosing Est GFR ( Amer) Est GFR (Non-Af Amer) BUN/Creatinine Ratio Glucose POC Glucose Lactate Calcium Magnesium Total Bilirubin AST ALT Alkaline Phosphatase Troponin I C-Reactive Protein NT-Pro-B Natriuret Pep Total Protein Albumin Globulin Albumin/Globulin Ratio Procalcitonin < 0.05 Diagnostic Findings 1. cxr - pulm edema with small b/l pleural effusions 2. EKG - my reading - a.fib with RVR, LBBB, no acute ST changes; PVC Medications Administered lasix 40mg IV x 1 (I gave this shortly after my admission assessment); 60 minutes later he voided 200-300cc maximum. able to be weaned from BIPAP to NC O2 however. Code Status & VTE Plan Code Status full VTE Prophylaxis Plan VTE Prophylaxis will be ordered: Yes PG Care Time/CCT Total # of Minutes Spent Total Time Spent with Patient: Total time spent is greater than 50% in coordination of care (as documented) at patient's floor/unit and/or counseling patient: Coding Level of Care Code 34376 Initial Inpt Care Lvl 3 Diagnoses Acute respiratory failure with hypoxia J96.01 Chronic systolic CHF (congestive heart failure) I50.22 Acute kidney injury N17.9 Permanent atrial fibrillation I48.2 Hypertension I10 Hypertension type: unspecified Coronary artery disease I25.119 Associated angina: with unspecified angina Coronary Disease-Associated Artery/Lesion type: unspecified vessel or lesion type [place] vs. transplanted heart: unspecified whether [place] or transplanted heart LBBB (left bundle branch block) I44.7 Diabetes mellitus, type II E11.9; Z79.4 Diabetes mellitus complication status: without complication Diabetes mellitus [facility] insulin use: with [facility] use BPH (benign prostatic hyperplasia) N40.0 Lower urinary tract symptom presence: symptoms absent Elevated troponin R74.8 COPD (chronic obstructive pulmonary disease) J44.9 COPD type: unspecified COPD History of aortic valve replacement Z95.2 Hyperlipidemia E78.2 Hyperlipidemia type: mixed hyperlipidemia DVT prophylaxis Z29.9 (1) BPH (benign prostatic hyperplasia) Lower urinary tract symptom presence: symptoms absent Qualified Code(s): N40. 0 - Benign prostatic hyperplasia without lower urinary tract symptoms (2) Diabetes mellitus, type II Diabetes mellitus complication status: without complication Diabetes mellitus exterminator helper insulin use: with [facility] use Qualified Code(s): E11.9 - Type 2 diabetes mellitus without complications; Z79.4 - [facility] (current) use of insulin (3) Coronary artery disease Associated angina: with unspecified angina Coronary Disease-Associated Artery/Lesion type: unspecified vessel or lesion type [place] vs. transplanted heart: unspecified whether [place] or transplanted heart Qualified Code(s): I25.119 - Atherosclerotic heart disease of [place] coronary artery with unspecified angina pectoris (4) Hyperlipidemia Hyperlipidemia type: mixed hyperlipidemia Qualified Code(s): E78.2 - Mixed hyperlipidemia (5) COPD (chronic obstructive pulmonary disease) COPD type: unspecified COPD Qualified Code(s): J44.9 - Chronic obstructive pulmonary disease, unspecified (6) Hypertension Hypertension type: unspecified Qualified Code(s): I10 - Essential (primary) hypertension
[2019-07-28] MEDS ORDERED: FUROSEMIDE 40 MG/4 ML VIAL IV STA (16:18)
--- NOTE | 2019-07-28 17:15 | Electrocardiogram Report ---
Test Reason : Blood Pressure : / mmHG Vent. Rate : 103 BPM Atrial Rate : 107 BPM P-R Int : 000 ms QRS Dur : 130 ms QT Int : 306 ms P-R-T Axes : 000 079 236 degrees QTc Int : 400 ms Atrial fibrillation with rapid ventricular response with premature ventricular or aberrantly conducte d complexes Left bundle branch block Anterolateral infarct , age undetermined Abnormal ECG When compared with ECG of 06-NOV-2018 08:26, Nonspecific T wave abnormality has replaced inverted T waves in Inferior leads Confirmed by Nitin Wilson ([id number]) on 07/28/2019 5:14:59 PM Referred By: ER Confirmed By:Elia Wilson
--- NOTE | 2019-07-28 18:14 | Ultrasound Report ---
US venous doppler LE BI HISTORY: Pain. Edema. ? dvt COMPARISON STUDY: None. FINDINGS: There is normal compressibility, flow, and augmentation within the bilateral lower extremit y deep venous systems. IMPRESSION: No DVT within the right or left lower extremity. ACT 112: Negative or not required by law. The above report was generated using voice recognition software. It may contain grammatical, syntax or spelling errors. Electronically signed by: Ld Okeefe M.D. 07/28/2019 6:13 PM
[2019-07-28] MEDS ORDERED: ACETAMINOPHEN 325 MG TAB PO PRN (18:29)
[2019-07-28] MEDS ORDERED: NITROGLYCERIN SL 0.4 MG/TAB TAB SL PRN (18:29)
[2019-07-28] MEDS ORDERED: ONDANSETRON INJ 2 MG/ML 2 ML VIAL IV PRN (18:29)
[2019-07-28] MEDS ORDERED: GLUCAGON FOR INJ 1 MG VIAL IM PRN (18:45)
[2019-07-28] MEDS ORDERED: GLUCOSE 10 TABS/TUBE PO PRN (18:45)
[2019-07-28] MEDS ORDERED: GLUCOSE 40% GEL 15 GM TUBE PO PRN (18:45)
[2019-07-28] MEDS ORDERED: CARBOHYDRATES FOR HYPOGLYCEMIA PO PRN (18:45)
[2019-07-28] MEDS ORDERED: DEXTROSE 50% 50 ML SYRINGE IV PRN (18:45)
[2019-07-28] MEDS ORDERED: predniSONE 50 MG TAB PO STA (18:48)
[2019-07-28] MEDS ORDERED: ALBUTEROL HFA 8 GM INHALER INH PRN (18:50)
[2019-07-28] MEDS ORDERED: IPRATROPIUM BROMIDE HFA INHALER INH PRN (19:06)
[2019-07-28] MEDS ORDERED: Heparin IV Standard *NO* Bolus ONE (19:23)
[2019-07-28] MEDS ORDERED: HEPARIN SODIUM/DEXTROSE 25,000 UNITS/500 ML BAG IV SCH (19:30)
[2019-07-28] MEDS: INSULIN GLARGINE SOLOSTAR 100 UNITS/ML 3 ML PEN SQ SCH (20:23)
[2019-07-28] MEDS: INSULIN ASPART 100 UNITS/ML 3 ML PEN SC SCH ×2 (20:23→21:25)
[2019-07-28 21:07] LABS: C Reactive Protein < 0.29 mg/dl (0-0.29); Troponin I 0.177 ng/ml (0-0.045)
[2019-07-28] MEDS ORDERED: HEPARIN SOD 5,000 UNIT/0.5 ML VIAL SQ SCH (22:00)
[2019-07-29 04:16] LABS: BUN Creatinine Ratio 17.2 (10-20); Calcium 8.8 mg/dl (8.5-10.1); Creatinine Clr Calc Pharmacy 50.5 ml/min; Est GFR (African American) 60.6; Est GFR (Non-African American) 52.3; Potassium 4.8 mmol/L (3.5-5.1)
[2019-07-29 04:17] LABS: Partial Thromboplastin Ratio 3.5
[2019-07-29 04:19] LABS: Partial Thromboplastin Time 98.5 Seconds (21.0-31.0)
[2019-07-29 04:23] LABS: Troponin I 0.117 ng/ml (0-0.045)
[2019-07-29] MEDS: predniSONE 50 MG TAB PO SCH ×2 (05:38→10:56)
[2019-07-29] MEDS: FLUTICASONE/VILANTEROL 100/25MCG 14 PUFFS/INHALER INH SCH (08:32)
[2019-07-29] MEDS: FINASTERIDE 5 MG TAB PO SCH (08:32)
[2019-07-29] MEDS: METOPROLOL SUCC 50MG EXT REL TAB PO SCH (08:33)
[2019-07-29] MEDS: ASPIRIN 81 MG ECTAB PO SCH (08:34)
[2019-07-29] MEDS: MAGNESIUM CHLORIDE 64MG DELAYED REL TAB PO SCH (08:34)
[2019-07-29] MEDS: INSULIN ASPART 100 UNITS/ML 3 ML PEN SC SCH ×4 (08:37→20:42)
[2019-07-29] MEDS: CLOPIDOGREL BISULFATE 75 MG TAB PO SCH (08:39)
[2019-07-29] MEDS ORDERED: FUROSEMIDE 40 MG in SYRINGE 0 ML IV ONE ×2 (09:16→16:30)
[2019-07-29 11:51] LABS: Partial Thromboplastin Ratio 3.4
[2019-07-29] MEDS ORDERED: OPTIRAY 320 125ml IV PRN (11:54)
[2019-07-29 12:00] LABS: Partial Thromboplastin Time 94.8 Seconds (21.0-31.0)
--- NOTE | 2019-07-29 12:27 | CT Scan Report ---
CT angio chest PE protocol CT DOSE: 924.52 mGy.cm HISTORY: resp failure, r/o PE TECHNIQUE: Multiaxial CT images of the chest were performed following the intravenous administration of contrast to evaluate the pulmonary arteries. Maximal intensity projection images were also obtaine d. A dose lowering technique was utilized adhering to the principles of ALARA. COMPARISON STUDY: None. FINDINGS: Moderate atherosclerotic change thoracic aorta. No evidence for aneurysm or dissection. Pulmonary vasculature enhances appropriately. There are no filling defects. Operative findings consistent with a prior aortic valve repair. Cardiomegaly. Prominent pulmonary vas culature. Bilateral pleural effusions. IMPRESSION: 1. No evidence for pulmonary embolus. 2. Bilateral pleural effusions. 3. Cardiomegaly with components of mild congestive failure. ACT 112: Negative or not required by law. The above report was generated using voice recognition software. It may contain grammatical, syntax or spelling errors. Electronically signed by: Ld Okeefe M.D. 07/29/2019 12:26 PM
--- NOTE | 2019-07-29 16:23 | Hospitalist Progress Note ---
Date of Service July 29, 2019 Assessment & Plan (1) Acute respiratory failure with hypoxia: Symptoms, cxr findings, and presentation consistent with acute/chronic systolic CHF. CTA Chest performed after pretreatment for allergy the day after admission which was negative for PE but showed pleural effusions and pulm edema With significant LE edema and he reports 10 lbs weight gain in the last 1-2 weeks after a purposeful 50 lb weight loss in the last 6 months (hence why his weight does not seem higher than previously recorded in our system) PCT and CRP negative, no fevers or concern for PNA or infection Does have COPD but not wheezing, not in exacerbation Requiring 2L O2 but now weaned off -Improving now with IV lasix -gave another lasix 40mg IV bid today and reassess in AM -follow BMP in AM -follow UOP, I/Os, daily weights -low Na+ diet (2) Chronic systolic CHF (congestive heart failure): As above, acute on chronic systolic CHF LVEF 11/2018 was 35-40% s/p TAVR 11/2018 Cont Toprol XL 50mg daily losartan held on admission for low BPs-ok to restart in the AM as BPs are improved (3) Acute kidney injury: Cr 1.5 on admission; baseline about 1. Gunner Mate down today to 1.2 after receiving IV lasix-poor perfusion from acute CHF -repeat BMP in am. -ok to restart losartan (4) Permanent atrial fibrillation: with perm afib, rate controlled on Toprol Has continued to decline anticoagulation as per Cardiology notes (5) Hypertension: Controlled -continue Toprol, restart losartan in AM (6) Coronary artery disease: nonobstructive coronary artery disease (sequential 50% LAD stenoses, July 2018) medical management recommended cont BB, asa, plavix restart statin troponin minimally elevated - doubt ACS--> minimally elevated due to demand ischemia in setting of acute CHF--> no further treatment needed (7) LBBB (left bundle branch block): chronic (8) Diabetes mellitus, type II: hold oral agents from home cont lantus novolog correction/carb coverage BSGs ac/hs DM diet (9) BPH (benign prostatic hyperplasia): cont finasteride and alpha federica (10) Elevated troponin: as above (11) COPD (chronic obstructive pulmonary disease): No acute issues -continue symbicort BID combivent added here prn-he has not used this (12) History of aortic valve replacement: s/p TAVR 11/2018 - [facility] post-op echo w/ good valve function (13) Hyperlipidemia: held statin on admission for mild elevation in AST LFTs not rechecked today but ok to restart statin (14) DVT prophylaxis: heparin gtt stopped after PE ruled out STart SQ Lovenox this evening Dispo-continued stay on PCU for acute CHF Full Code His friend Ameya Horne is his HCPOA as he is not and has no children Admission and Anticipated Discharge Date Admission Date: July 28, 2019 Subjective Pt feeling better since admission, making plenty of urine. Feels less SOB and that legs are less swollen. No chest pain, no abd pain or distension. Tele with atrial fibrillation, rates 80s-90s Review of Systems Review of Systems: All systems reviewed & are unremarkable except as noted in HPI & below Physical Exam Constitutional: WD/WN, vitals as above + obese Eyes: + anicteric sclerae Neck: trachea midline, no thyromegaly Respiratory: normal respiratory effort Auscultation: + diminished lung sounds (at bases bilat); no crackles and no wheezes Cardiovascular: Rate/Rhythm: regular rate and + irregularly irregular Heart Sounds: no murmur Extremities: + edema (3+ pitting edema of legs to knees bilat) Chest (Breasts): Chest: normal inspection of chest Gastrointestinal (Abdomen): normal bowel sounds, soft, nontender, no hepatosplenomegaly Musculoskeletal: Extremities: no cyanosis and no clubbing Skin: no rashes, warm and dry Neurologic: moves all extremities and awake; no focal motor deficits Psychiatric: A+Ox3, euthymic affect Lymphatic: no lymphedema Results & Data Results & Data ([facility]) Vital Signs (Past 12 Hours) Vital Signs Temp Pulse Resp BP Pulse Ox 07/29/19 11:01 36.7 C 91 H 19 126/87 98 07/29/19 07:22 36.7 C 92 H 19 145/83 H 98 Laboratory Results 07/29/19 07/29/19 07/29/19 Range/Units 16:21 11:27 11:21 APTT 94.8 H* (21.0-31.0) Seconds PTT Ratio 3.4 Sodium (136-145) mmol/L Potassium (3.5-5.1) mmol/L Chloride (98-107) mmol/L Carbon Dioxide (21-32) mmol/L Anion Gap (3-11) BUN (7-18) mg/dl Creatinine (0.6-1.4) mg/dl Est Cr Clr Drug Dosing ml/min Est GFR ( Amer) Est GFR (Non-Af Amer) BUN/Creatinine Ratio (10-20) Glucose (70-99) mg/dl POC Glucose Pending 183 H (70-99) mg/dl Lactate (0.4-2.0) mmol/L Calcium (8.5-10.1) mg/dl Troponin I (0-0.045) ng/ml C-Reactive Protein (0-0.29) mg/dl Procalcitonin (0-0.5) ng/ml 07/29/19 07/29/19 07/29/19 Range/Units 07:03 03:43 03:43 APTT 98.5 H* (21.0-31.0) Seconds PTT Ratio 3.5 Sodium 141 (136-145) mmol/L Potassium 4.8 (3.5-5.1) mmol/L Chloride 107 (98-107) mmol/L Carbon Dioxide 29 (21-32) mmol/L Anion Gap 5.0 (3-11) BUN 22 H (7-18) mg/dl Creatinine 1.27 (0.6-1.4) mg/dl Est Cr Clr Drug Dosing 50.5 ml/min Est GFR ( Amer) 60.6 Est GFR (Non-Af Amer) 52.3 BUN/Creatinine Ratio 17.2 (10-20) Glucose 155 H (70-99) mg/dl POC Glucose 130 H (70-99) mg/dl Lactate (0.4-2.0) mmol/L Calcium 8.8 (8.5-10.1) mg/dl Troponin I 0.117 H* (0-0.045) ng/ml C-Reactive Protein (0-0.29) mg/dl Procalcitonin (0-0.5) ng/ml 07/28/19 07/28/19 07/28/19 Range/Units 20:26 20:26 19:38 APTT (21.0-31.0) Seconds PTT Ratio Sodium (136-145) mmol/L Potassium (3.5-5.1) mmol/L Chloride (98-107) mmol/L Carbon Dioxide (21-32) mmol/L Anion Gap (3-11) BUN (7-18) mg/dl Creatinine (0.6-1.4) mg/dl Est Cr Clr Drug Dosing ml/min Est GFR ( Amer) Est GFR (Non-Af Amer) BUN/Creatinine Ratio (10-20) Glucose (70-99) mg/dl POC Glucose 93 (70-99) mg/dl Lactate (0.4-2.0) mmol/L Calcium (8.5-10.1) mg/dl Troponin I 0.177 H* (0-0.045) ng/ml C-Reactive Protein < 0.29 (0-0.29) mg/dl Procalcitonin < 0.05 (0-0.5) ng/ml 07/28/19 Range/Units 16:33 APTT (21.0-31.0) Seconds PTT Ratio Sodium (136-145) mmol/L Potassium (3.5-5.1) mmol/L Chloride (98-107) mmol/L Carbon Dioxide (21-32) mmol/L Anion Gap (3-11) BUN (7-18) mg/dl Creatinine (0.6-1.4) mg/dl Est Cr Clr Drug Dosing ml/min Est GFR ( Amer) Est GFR (Non-Af Amer) BUN/Creatinine Ratio (10-20) Glucose (70-99) mg/dl POC Glucose (70-99) mg/dl Lactate 2.3 H* (0.4-2.0) mmol/L Calcium (8.5-10.1) mg/dl Troponin I (0-0.045) ng/ml C-Reactive Protein (0-0.29) mg/dl Procalcitonin (0-0.5) ng/ml PG Care Time/CCT Total # of Minutes Spent Total Time Spent with Patient: Total time spent is greater than 50% in coordinat ion of care (as documented) at patient's floor/unit and/or counseling patient: Coding Level of Care Code 54991 Subseq Hosp Care Lvl 3 Diagnoses Acute respiratory failure with hypoxia J96.01 Chronic systolic CHF (congestive heart failure) I50.22 Acute kidney injury N17.9 Permanent atrial fibrillation I48.2 Hypertension I10 Hypertension type: unspecified Coronary artery disease I25.119 Associated angina: with unspecified angina Coronary Disease-Associated Artery/Lesion type: unspecified vessel or lesion type [place] vs. transplanted heart: unspecified whether [place] or transplanted heart LBBB (left bundle branch block) I44.7 Diabetes mellitus, type II E11.9; Z79.4 Diabetes mellitus intermediate accountant insulin use: with mcfp use Diabetes mellitus complication status: without complication BPH (benign prostatic hyperplasia) N40.0 Lower urinary tract symptom presence: symptoms absent Elevated troponin R74.8 COPD (chronic obstructive pulmonary disease) J44.9 COPD type: unspecified COPD History of aortic valve replacement Z95.2 Hyperlipidemia E78.2 Hyperlipidemia type: mixed hyperlipidemia DVT prophylaxis Z29.9 (1) Hypertension Hypertension type: unspecified Qualified Code(s): I10 - Essential (primary) hypertension (2) Coronary artery disease Associated angina: with unspecified angina Coronary Disease-Associated Artery/Lesion type: unspecified vessel or lesion type [place] vs. transplanted heart: unspecified whether [place] or transplanted heart Qualified Code(s): I25.119 - Atherosclerotic heart disease of [place] coronary artery with unspecified angina pectoris (3) Diabetes mellitus, type II Diabetes mellitus intermediate accountant insulin use: with intermediate accountant use Diabetes mellitus complication status: without complication Qualified Code(s): E11.9 - Type 2 diabetes mellitus without complications; Z79.4 - half-way (current) use of insulin (4) BPH (benign prostatic hyperplasia) Lower urinary tract symptom presence: symptoms absent Qualified Code(s): N40.0 - Benign prostatic hyperplasia without lower urinary tract symptoms (5) COPD (chronic obstructive pulmonary disease) COPD type: unspecified COPD Qualified Code(s): J44.9 - Chronic obstructive pulmonary disease, unspecified (6) Hyperlipidemia Hyperlipidemia type: mixed hyperlipidemia Qualified Code(s): E78.2 - Mixed hyperlipidemia
--- NOTE | 2019-07-29 17:05 | XCELERA ---
[id number]
[2019-07-29] MEDS: INSULIN GLARGINE SOLOSTAR 100 UNITS/ML 3 ML PEN SQ SCH (20:44)
[2019-07-30 06:55] LABS: Albumin Level 2.7 gm/dl (3.4-5.0); BUN Creatinine Ratio 21.3 (10-20); Bilirubin Direct 0.3 mg/dl (0-0.2); Bilirubin,Total 1.5 mg/dl (0.2-1); Calcium 8.6 mg/dl (8.5-10.1); Est GFR (African American) 66.9; Est GFR (Non-African American) 57.7; Potassium 3.9 mmol/L (3.5-5.1); Total Protein 5.9 gm/dl (6.4-8.2)
[2019-07-30] MEDS ORDERED: POTASSIUM CHLORIDE 10 MEQ TABCR PO STA (07:42)
[2019-07-30] MEDS: FUROSEMIDE 40 MG in SYRINGE 0 ML IV SCH ×2 (08:58→17:54)
[2019-07-30] MEDS: INSULIN ASPART 100 UNITS/ML 3 ML PEN SC SCH ×4 (08:59→21:20)
[2019-07-30] MEDS ORDERED: FUROSEMIDE 40 MG in SYRINGE 1 ML IV SCH (09:00)
[2019-07-30] MEDS: ASPIRIN 81 MG ECTAB PO SCH (09:00)
[2019-07-30] MEDS: MAGNESIUM CHLORIDE 64MG DELAYED REL TAB PO SCH (09:00)
[2019-07-30] MEDS: ATORVASTATIN 40 MG TAB PO SCH (09:00)
[2019-07-30] MEDS: METOPROLOL SUCC 50MG EXT REL TAB PO SCH (09:00)
[2019-07-30] MEDS: LOSARTAN POTASSIUM 25 MG TAB PO SCH (09:00)
[2019-07-30] MEDS: FINASTERIDE 5 MG TAB PO SCH (09:01)
[2019-07-30] MEDS: FLUTICASONE/VILANTEROL 100/25MCG 14 PUFFS/INHALER INH SCH (09:01)
[2019-07-30] MEDS: CLOPIDOGREL BISULFATE 75 MG TAB PO SCH (09:01)
--- NOTE | 2019-07-30 11:27 | Hospitalist Progress Note ---
Date of Service July 30, 2019 Assessment & Plan (1) Acute respiratory failure with hypoxia: Symptoms, cxr findings, and presentation consistent with acute/chronic systolic CHF. CTA Chest performed after pretreatment for allergy the day after admission which was negative for PE but showed pleural effusions and pulm edema With significant LE edema and he reports 10 lbs weight gain in the last 1-2 weeks after a purposeful 50 lb weight loss in the last 6 months (hence why his weight does not seem higher than previously recorded in our system) PCT and CRP negative, no fevers or concern for PNA or infection Does have COPD but not wheezing, not in exacerbation Was requiring 2L O2 but now weaned off Weight is down 2 kg, I's and O's net -2.7 L Echocardiogram here with severely reduced EF 20-25%, mild to moderate AI, periprosthetic leak mild to moderate which is similar to previous Patient admits he was eating TV dinners every night-CHF exacerbation likely secondary to excessive sodium intake -Improving with diuresis -Continue Lasix 40mg IV bid -follow BMP in AM -follow UOP, I/Os, daily weights -low Na+ diet-counseling provided (2) Chronic systolic CHF (congestive heart failure): As above, acute on chronic systolic CHF LVEF 11/2018 was 35-40%, now 20-25% as above s/p TAVR 11/2018 Cont Toprol XL 50mg daily -Continue losartan -Appreciate cardiology consultation (3) Acute kidney injury: Cr 1.5 on admission; baseline about 1. Distribution District Supervisor down now to 1.1 after receiving IV lasix-was likely secondary to poor perfusion from acute CHF -repeat BMP in am. -Continue losartan (4) Permanent atrial fibrillation: with perm afib, rate controlled on Toprol Has continued to decline anticoagulation as per Cardiology notes (5) Hypertension: Controlled -continue Toprol, losartan as above (6) Coronary artery disease: nonobstructive coronary artery disease (sequential 50% LAD stenoses, July 2018) medical management recommended cont BB, asa, plavix -Continue statin troponin minimally elevated - doubt ACS--> minimally elevated due to demand ischemia in setting of acute CHF--> no further treatment needed (7) LBBB (left bundle branch block): chronic (8) Diabetes mellitus, type II: hold oral agents from home Blood sugars here were high yesterday due to prednisone given as pretreatment for IV contrast, now controlled cont lantus 22 units daily novolog correction/carb coverage BSGs ac/hs DM diet (9) BPH (benign prostatic hyperplasia): cont finasteride and alpha federica (10) Elevated troponin: as above (11) COPD (chronic obstructive pulmonary disease): No acute issues -continue symbicort BID combivent added here prn-he has not used this (12) History of aortic valve replacement: s/p TAVR 11/2018 - [facility] post-op echo w/ good valve function with stable mild to moderate periprosthetic leak (13) Hyperlipidemia: held statin on admission for mild elevation in AST-has since been restarted LFTs now normal except mildly elevated T bili at 1.5 (14) DVT prophylaxis: heparin gtt stopped after PE ruled out -continue SQ Lovenox Dispo-continued stay on PCU for acute CHF Full Code His friend Ameya Horne is his HCPOA as he is not and has no children Admission and Anticipated Discharge Date Admission Date: July 28, 2019 Subjective Patient feeling better today. Less short of breath. He is able to lie flat. Denies any chest pain. He feels he can walk at least 10 feet now before he becomes short of breath which is an improvement, but not yet ready to leave the hospital. I discussed his case with his primary manager utilization review who is on consultation today. Telemetry with atrial fibrillation and PVCs with rates in the 80s He is now weaned off of oxygen. Review of Systems Review of Systems: All systems reviewed & are unremarkable except as noted in HPI & below Physical Exam Constitutional: WD/WN, vitals as above + obese Eyes: + anicteric sclerae Neck: trachea midline, no thyromegaly Respiratory: normal respiratory effort Auscultation: + diminished lung sounds (at bases bilat) and + crackles (At bases bilaterally); no wheezes Cardiovascular: Rate/Rhythm: regular rate and + irregularly irregular Heart Sounds: no murmur Extremities: + edema (2-3+ pitting edema of legs to knees bilat slightly improved from previous) Gastrointestinal (Abdomen): normal bowel sounds, soft, nontender, no hepatosplenomegaly Musculoskeletal: Extremities: no cyanosis and no clubbing Skin: no rashes, warm and dry Neurologic: moves all extremities and awake; no focal motor deficits Psychiatric: A+Ox3, euthymic affect Lymphatic: no lymphedema Results & Data Results & Data ([facility]) Vital Signs (Past 12 Hours) Vital Signs Temp Pulse Resp BP BP Pulse Ox 07/30/19 08:05 36.5 C 81 19 166/61 H 98 07/30/19 04:42 36.6 C 89 24 108/67 97 07/30/19 00:05 36.6 C 82 18 106/61 96 Laboratory Results 07/30/19 07/30/19 07/30/19 Range/Units 16:14 11:32 07:57 Sodium (136-145) mmol/L Potassium (3.5-5.1) mmol/L Chloride (98-107) mmol/L Carbon Dioxide (21-32) mmol/L Anion Gap (3-11) BUN (7-18) mg/dl Creatinine (0.6-1.4) mg/dl Est Cr Clr Drug Dosing ml/min Est GFR ( Amer) Est GFR (Non-Af Amer) BUN/Creatinine Ratio (10-20) Glucose (70-99) mg/dl POC Glucose 106 H 94 101 H (70-99) mg/dl Calcium (8.5-10.1) mg/dl Magnesium (1.8-2.4) mg/dl Total Bilirubin (0.2-1) mg/dl Direct Bilirubin (0-0.2) mg/dl AST (15-37) U/L ALT (12-78) U/L Alkaline Phosphatase (45-117) U/L Total Protein (6.4-8.2) gm/dl Albumin (3.4-5.0) gm/dl 07/30/19 07/29/19 Range/Units 05:19 20:17 Sodium 139 (136-145) mmol/L Potassium 3.9 D (3.5-5.1) mmol/L Chloride 103 (98-107) mmol/L Carbon Dioxide 30 (21-32) mmol/L Anion Gap 6.0 (3-11) BUN 25 H (7-18) mg/dl Creatinine 1.17 (0.6-1.4) mg/dl Est Cr Clr Drug Dosing 58.0 ml/min Est GFR ( Amer) 66.9 Est GFR (Non-Af Amer) 57.7 BUN/Creatinine Ratio 21.3 H (10-20) Glucose 134 H (70-99) mg/dl POC Glucose 196 H (70-99) mg/dl Calcium 8.6 (8.5-10.1) mg/dl Magnesium 2.0 (1.8-2.4) mg/dl Total Bilirubin 1.5 H (0.2-1) mg/dl Direct Bilirubin 0.3 H (0-0.2) mg/dl AST 34 (15-37) U/L ALT 31 (12-78) U/L Alkaline Phosphatase 64 (45-117) U/L Total Protein 5.9 L (6.4-8.2) gm/dl Albumin 2.7 L (3.4-5.0) gm/dl PG Care Time/CCT Total # of Minutes Spent Total Time Spent with Patient: Total time spent is greater than 50% in coordination of care (as documented) at patient's floor/unit and/or counseling patient: Coding Level of Care Code 93273 Subseq Hosp Care Lvl 3 Diagnoses Acute respiratory failure with hypoxia J96.01 Chronic systolic CHF (congestive heart failure) I50.22 Acute kidney injury N17.9 Permanent atrial fibrillation I48.2 Hypertension I10 Hypertension type: unspecified Coronary artery disease I25.119 Associated angina: with unspecified angina Coronary Disease-Associated Artery/Lesion type: unspecified vessel or lesion type [place] vs. transplanted heart: unspecified whether [place] or transplanted heart LBBB (left bundle branch block) I44.7 Diabetes mellitus, type II E11.9; Z79.4 Diabetes mellitus complication status: without complication Diabetes mellitus senior care insulin use: with articulation officer use BPH (benign prostatic hyperplasia) N40.0 Lower urinary tract symptom presence: symptoms absent Elevated troponin R74.8 COPD (chronic obstructive pulmonary disease) J44.9 COPD type: unspecified COPD History of aortic valve replacement Z95.2 Hyperlipidemia E78.2 Hyperlipidemia type: mixed hyperlipidemia DVT prophylaxis Z29.9 (1) BPH (benign prostatic hyperplasia) Lower urinary tract symptom presence: symptoms absent Qualified Code(s): N40.0 - Benign prostatic hyperplasia without lower urinary tract symptoms (2) Diabetes mellitus, type II Diabetes mellitus complication status: without complication Diabetes mellitus senior care insulin use: with articulation officer use Qualified Code(s): E11.9 - Type 2 diabetes mellitus without complications; Z79.4 - training development director (current) use of insulin (3) Coronary artery disease Associated angina: with unspecified angina Coronary Disease-Associated Artery/Lesion type: unspecified vessel or lesion type [place] vs. transplanted heart: unspecified whether [place] or transplanted heart Qualified Code(s): I25.119 - Atherosclerotic heart disease of [place] coronary artery with unspecified angina pectoris (4) Hyperlipidemia Hyperlipidemia type: mixed hyperlipidemia Qualified Code(s): E78.2 - Mixed hyperlipidemia (5) COPD (chronic obstructive pulmonary disease) COPD type: unspecified COPD Qualified Code(s): J44.9 - Chronic obstructive pulmonary disease, unspecified (6) Hypertension Hypertension type: unspecified Qualified Code(s): I10 - Essential (primary) hypertension
--- NOTE | 2019-07-30 12:24 | Cardiology Consultation ---
Date of Consultation July 30, 2019 Assessment & Plan (1) Acute on chronic systolic (congestive) heart failure: -secondary to noncompliance with a salt and fluid restricted diet. -responding well to intravenous diuretics. -continue metoprolol succinate and losartan. -his dry weight at home is 220 pounds. -re-educate on the use of sliding-scale diuretics. (2) Coronary artery disease: -nonobstructive disease at time of catheterization in November 2018. -continue medical management. (3) Status post transcatheter aortic valve replacement (TAVR) using bioprosthesis: -prosthesis is a 26 mm Ruben S3. -normal gradient across valve. -known nlmr-qj-mphayxrf perivalvular leak. (4) Left ventricular dysfunction: -current ejection fraction 20-25%. -has had left ventricular dysfunction since (5) Permanent atrial fibrillation: -refuses anticoagulation-see above History of Present Illness Attending Physician: Fiordaliza Walker MD History of Present Illness Mr. Amador is an 83-year-old male admitted yesterday in decompensated systolic CHF. This consultation was ordered to assist in his cardiac management. Of note, the patient is well known to me from the outpatient setting. The patient was in his usual state of health until approximately 1 week prior to presentation. He began to note progressive weight gain from his typical dry weight of 220 pounds up to weight of 230 pounds on the day of presentation. He also noted progressive exertional dyspnea, orthopnea, and lower extremity edema over that time frame. At no time did he experience chest discomfort, syncope, presyncope, palpitations, or claudication. The patient's noncompliance with a low-salt diet. He eats TV dinners almost every day, and rarely limits his fluid intake. The patient does follow daily weights at home. He did not employ sliding-scale diuretics leading up to this hospitalization. The patient did undergo a TAVR back in November 2018 at [facility]. His preoperative cardiac catheterization revealed nonobstructive disease (sequential 50% mid LAD stenoses). The patient had significant left ventricular dysfunction both prior to and following his procedure. An echocardiogram performed at [facility] in December noted severe left ventricular dysfunction with an ejection fraction of 25%. There was a moderate perivalvular leak. The patient feels much improved with the use of intravenous diuretics. He is anxious for hospital discharge. The patient also carries a history of permanent atrial fibrillation. He refuses long-term anticoagulation as he developed significant hematuria while on Xarelto in the fall of 2017.. He discontinued that medication and attempted to restart it at half dose in February 2018. His hematuria recurred and therefore, he refuses anticoagulation. Past medical and surgical history 1. Nonobstructive CAD-see above 2. TAVR-November 2018 3. Moderate perivalvular leak 4. Severe left ventricular dysfunction-25% 5. Permanent atrial fibrillation-refuses anticoagulation 6. 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 Hypertension 9. Hypercholesterolemia 10. COPD 11. BPH 12. Diabetes 13. Chronic renal failure 14. Gout 15. Generalized polyneuropathy 16. History of depression 17. Right hydrocele repair Social history Single, lives alone Never No tobacco or alcohol Family history Mother at 82 from CHF Father at 80 from unknown causes Review of systems A 10 point review systems was negative except for that described above. Allergies Allergy/AdvReac Type Severity Reaction Status Date / Time Iodinated Contrast Media Allergy Unknown HIVES Verified 07/28/19 17:20 amoxicillin [From Augmentin] Allergy Unknown Verified 07/28/19 17:20 clavulanic acid Allergy Unknown Verified 07/28/19 17:20 [From Augmentin] oxaprozin [From Daypro] Allergy Unknown Verified 07/28/19 17:20 sitagliptin [From Januvia] Allergy Unknown Verified 07/28/19 17:20 Home Medications Home Medications Medication Instructions Recorded Confirmed Type aspirin [Aspir-81] 81 mg PO DAILY 06/10/18 07/28/19 History glimepiride 4 mg tablet 4 mg PO QAM #90 tab 10/18/18 07/28/19 Rx blood sugar diagnostic #100 ea 12/06/18 07/28/19 Rx budesonide-formoterol HFA 80 2 puffs INH BID #10.2 gm 02/21/19 07/28/19 Rx mcg-4.5 mcg/actuation aerosol inhaler pen needle,diabetic dual safty 30 #100 ea 03/21/19 07/28/19 Rx gauge x 3/16" furosemide 40 mg tablet 40 mg PO DAILY PRN #90 tab 04/15/19 07/28/19 Rx metformin 1,000 mg tablet 1,000 mg PO DAILY #90 tab 04/29/19 07/28/19 Rx clopidogrel 75 mg tablet 75 mg PO DAILY #90 tab 05/02/19 07/28/19 Rx losartan 25 mg tablet 25 mg PO DAILY #90 tab 05/02/19 07/28/19 Rx metoprolol succinate 50 mg 50 mg PO DAILY #90 tab 05/02/19 07/28/19 Rx tablet,extended release 24 hr atorvastatin 40 mg tablet 40 mg PO DAILY #90 tab 05/19/19 07/28/19 Rx potassium chloride 20 mEq 20 meq PO DAILY PRN #90 tab 06/13/19 07/28/19 Rx tablet,extended release finasteride 5 mg tablet 5 mg PO DAILY #90 tab 07/20/19 07/28/19 Rx insulin glargine [Basaglar KwikPen 22 units SUBCUT HS 07/28/19 07/28/19 History U-100 Insulin] magnesium chloride 64 mg PO DAILY 07/28/19 07/28/19 History Patient History Medical History (Updated 07/30/19 @ 12:08 by Keegan Morris MD) Aortic stenosis (Chronic) Symptomatic, severe, with ORACIO 0.8cm2, mean gradient 35mmHg, Ao V2: 3.6m/s; Awaiting CT surgery evaluation. Followed by cardiology. Acute on chronic CHF exacerbation 06/27 felt to be due to disease. Managed with furosemide 40mg d aily PRN to maintain body weight at 255lbs BPH (benign prostatic hyperplasia) BPH (benign prostatic hyperplasia) Managed with finasteride + doxazosin. Followed by urology Chronic systolic CHF (congestive heart failure) COPD (chronic obstructive pulmonary disease) COPD (chronic obstructive pulmonary disease) Coronary artery disease (Chronic) Catheterization (07/28) 30% left main, sequential 50% stenoses in the mid and distal LAD, and a 30% distal RCA stenosis. CT surgery evaluation pending given severe . Managed with ASA + statin + atenolol. Followed by cardiology. Diabetes Diabetes mellitus, type II (Chronic) Controlled, insulin dependent. Managed with glargine 22u QHS + metformin. HbA1c 5.7% (04/27). Dyslipidemia Hyperlipidemia Hypertension (Chronic) Long standing. Managed with atenolol LBBB (left bundle branch block) (Chronic) Paroxysmal A-fib Permanent atrial fibrillation (Chronic) Diagnosed 5/17. Rate controlled with atenolol 100mg daily. Previously AC via rivaroxaban. Discontinued due to BRBPR. Declined EGD/Colonocscopy. 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 Social History (Updated 07/28/19 @ 16:04 by Werner Hanna) Preferred Language: [place] Communication Ability: Effective Cooper Helper Required: No Beliefs That Will Affect Care: None marital status: Single Current Living Situation: Other Current Living Situation Comment: in [place] with friend current occupational status: retired current occupation: worked for [employer] Other Information That Helps Us Care for You: No Feels Safe at Home: Yes Safety Concerns: Feels Safe At This Time Smoking Status: Never smoker Second Hand Exposure: No ; Hx Alcohol Use: No Hx Substance Use: No Physical Exam Physical Exam: In general this is an obese white male in no acute distress. HEENT exam is negative. Neck is supple with full carotid upstrokes. No obvious bruits or transmitted murmurs. Jugular venous pressure is difficult to assess. There is no thyromegaly. Cardiovascular exam reveals an irregular rhythm with distant heart sounds. A 1/6 basal systolic ejection murmur is noted. Lungs noted decreased breath sounds at the bases with rales above. Abdomen is obese without bruits. Extremities reveal intact radial artery pulses bilaterally. 1+ pretibial edema is noted. Results & Data ([facility]) Vital Signs (Past 12 Hours) Vital Signs Temp Pulse Resp BP BP Pulse Ox 07/30/19 08:05 36.5 C 81 19 166/61 H 98 07/30/19 04:42 36.6 C 89 24 108/67 97 07/30/19 00:05 36.6 C 82 18 106/61 96 Laboratory Results CBC notes hemoglobin 13.9, hematocrit 43.6, white count 11.7, platelet count of [id number]. Electrolytes note a sodium of 139, potassium 3.9, chloride 103, bicarb 30, BUN 25, creatinine 1.17, and glucose 131. Initial troponin was 0.161 with follow-up values of 0.177 and 0.117. BNP is elevated at 9223. Diagnostic Findings EKG notes atrial fibrillation with a controlled ventricular response. There is incomplete left bundle-branch block. Echocardiogram notes severe left ventricular dysfunction with an ejection fraction of 20-25%, LVH, a properly functioning bioprosthetic AVR, and a mrpc-py-ytxnkccx perivalvular leak. Chest x-ray notes cardiomegaly and CHF. CT scan of the chest notes cardiomegaly, CHF, and bilateral pleural effusions. PG Care Time/CCT Total # of Minutes Spent Total Time Spent with Patient: Total time spent is greater than 50% in coordination of care (as documented) at patient's floor/unit and/or counseling patient: Coding Level of Care Code 46938 Initial Inpt Care Lvl 3 Diagnoses Acute on chronic systolic (congestive) heart failure I50.23 Coronary artery disease I25.119 Associated angina: with unspecified angina Coronary Disease-Associated Artery/Lesion type: unspecified vessel or lesion type [place] vs. transplanted heart: unspecified whether [place] or transplanted heart Status post transcatheter aortic valve replacement (TAVR) using bioprosthesis Z95.3 Left ventricular dysfunction I51.9 Permanent atrial fibrillation I48.2 (1) Coronary artery disease Associated angina: with unspecified angina Coronary Disease-Associated Artery/Lesion type: unspecified vessel or lesion type [place] vs. transplanted heart: unspecified whether [place] or transplanted heart Qualified Code(s): I25.119 - Atherosclerotic heart disease of [place] coronary artery with unspecified angina pectoris
[2019-07-30] MEDS ORDERED: POLYETHYLENE (MIRALAX) 17 GM PACK PO PRN (17:46)
[2019-07-30] MEDS: INSULIN GLARGINE SOLOSTAR 100 UNITS/ML 3 ML PEN SQ SCH (21:20)
[2019-07-31 07:40] LABS: BUN Creatinine Ratio 21.2 (10-20); Calcium 8.7 mg/dl (8.5-10.1); Creatinine Clr Calc Pharmacy 58.1 ml/min; Est GFR (African American) 67.6; Est GFR (Non-African American) 58.3; Magnesium 1.9 mg/dl (1.8-2.4); Potassium 3.8 mmol/L (3.5-5.1)
[2019-07-31] MEDS: INSULIN ASPART 100 UNITS/ML 3 ML PEN SC SCH ×4 (08:54→21:43)
[2019-07-31] MEDS ORDERED: POTASSIUM CHLORIDE 20 MEQ TABCR PO STA (08:58)
[2019-07-31] MEDS: FUROSEMIDE 40 MG in SYRINGE 0 ML IV SCH ×2 (08:58→17:03)
[2019-07-31] MEDS: METOPROLOL SUCC 50MG EXT REL TAB PO SCH (08:59)
[2019-07-31] MEDS: LOSARTAN POTASSIUM 25 MG TAB PO SCH (08:59)
[2019-07-31] MEDS: ASPIRIN 81 MG ECTAB PO SCH (08:59)
[2019-07-31] MEDS: FINASTERIDE 5 MG TAB PO SCH (08:59)
[2019-07-31] MEDS: FLUTICASONE/VILANTEROL 100/25MCG 14 PUFFS/INHALER INH SCH (09:00)
[2019-07-31] MEDS: MAGNESIUM CHLORIDE 64MG DELAYED REL TAB PO SCH (09:00)
[2019-07-31] MEDS: ATORVASTATIN 40 MG TAB PO SCH (09:00)
[2019-07-31] MEDS: CLOPIDOGREL BISULFATE 75 MG TAB PO SCH (09:00)
[2019-07-31] MEDS ORDERED: MAGNESIUM SULFATE / D5W 1 GM/100 ML BAG IV ONE (09:30)
--- NOTE | 2019-07-31 11:44 | Hospitalist Progress Note ---
Date of Service July 31, 2019 Assessment & Plan (1) Acute respiratory failure with hypoxia: Symptoms, cxr findings, and presentation consistent with acute/chronic systolic CHF. CTA Chest performed after pretreatment for allergy the day after admission which was negative for PE but showed pleural effusions and pulm edema With significant LE edema and he reports 10 lbs weight gain in the last 1-2 weeks after a purposeful 50 lb weight loss in the last 6 months (hence why his weight does not seem higher than previously recorded in our system) PCT and CRP negative, no fevers or concern for PNA or infection Does have COPD but not wheezing, not in exacerbation Was requiring 2L O2 but now weaned off Weight is down 3.6kg, I's and O's net -5.2 L Echocardiogram here with severely reduced EF 20-25%, mild to moderate AI, periprosthetic leak mild to moderate which is similar to previous Patient admits he was eating TV dinners every night-CHF exacerbation likely secondary to excessive sodium intake -Improving with diuresis -Continue Lasix 40mg IV bid -follow BMP in AM -follow UOP, I/Os, daily weights -low Na+ diet-counseling provided (2) Chronic systolic CHF (congestive heart failure): As above, acute on chronic systolic CHF LVEF 11/2018 was 35-40%, now 20-25% as above s/p TAVR 11/2018 Cont Toprol XL 50mg daily -Continue losartan -Appreciate cardiology consultation (3) Acute kidney injury: Cr 1.5 on admission; baseline about 1 Vp Talent Management down now to 1.1 after receiving IV lasix-was likely secondary to poor perfusion from acute CHF -repeat BMP in am. -Continue losartan (4) Permanent atrial fibrillation: with perm afib, rate controlled on Toprol Has continued to decline anticoagulation as per Cardiology notes (5) Hypertension: Controlled -continue Toprol, losartan as above (6) Coronary artery disease: nonobstructive coronary artery disease (sequential 50% LAD stenoses, July 2018) medical management recommended cont BB, asa, plavix -Continue statin troponin minimally elevated - doubt ACS--> minimally elevated due to demand ischemia in setting of acute CHF--> no further treatment needed (7) LBBB (left bundle branch block): chronic (8) Diabetes mellitus, type II: hold oral agents from home Blood sugars here were high due to prednisone given as pretreatment for IV contrast, now controlled cont lantus 22 units daily novolog correction/carb coverage BSGs ac/hs DM diet (9) BPH (benign prostatic hyperplasia): cont finasteride (10) Elevated troponin: as above (11) COPD (chronic obstructive pulmonary disease): No acute issues -continue symbicort BID combivent added here prn-he has not used this (12) History of aortic valve replacement: s/p TAVR 11/2018 - [facility] post-op echo w/ good valve function with stable mild to moderate periprosthetic leak (13) Hyperlipidemia: held statin on admission for mild elevation in AST-has since been restarted LFTs now normal except mildly elevated T bili at 1.5 (14) Constipation: added Miralax and today will add senna/docusate No BM since 07/26 (15) DVT prophylaxis: heparin gtt stopped after PE ruled out -continue SQ Lovenox Dispo-continued stay on PCU for acute CHF Full Code His friend Ameya Horne is his HCPOA as he is not and has no children Admission and Anticipated Discharge Date Admission Date: July 28, 2019 Subjective Feeling better, less SOB, legs less swollen. No BM in 4 days. Denies CP. Tele with rate controlled Afib Review of Systems Review of Systems: All systems reviewed & are unremarkable except as noted in HPI & below Physical Exam Constitutional: WD/WN, vitals as above + obese Eyes: + anicteric sclerae Neck: trachea midline, no thyromegaly Respiratory: normal respiratory effort Auscultation: + diminished lung sounds (at bases bilat); no wheezes Cardiovascular: Rate/Rhythm: regular rate and + irregularly irregular Heart Sounds: no murmur Extremities: + edema (2+ pitting edema of legs to knees bilat slightly improved from previous) Chest (Breasts): Chest: normal inspection of chest Gastrointestinal (Abdomen): normal bowel sounds, soft, nontender, no hepato splenomegaly Musculoskeletal: Extremities: no cyanosis and no clubbing Skin: no rashes, warm and dry Neurologic: moves all extremities and awake; no focal motor deficits Psychiatric: A+Ox3, euthymic affect Lymphatic: no lymphedema Results & Data Results & Data ([facility]) Vital Signs (Past 12 Hours) Vital Signs Temp Pulse Pulse Resp BP Pulse Ox 07/31/19 07:53 36.6 C 82 19 118/84 91 07/31/19 03:08 36.4 C L 62 18 117/78 93 07/30/19 23:59 80 Laboratory Results 07/31/19 07/31/19 07/30/19 Range/Units 07:37 06:55 20:17 Sodium 139 (136-145) mmol/L Potassium 3.8 (3.5-5.1) mmol/L Chloride 103 (98-107) mmol/L Carbon Dioxide 32 (21-32) mmol/L Anion Gap 4.0 (3-11) BUN 25 H (7-18) mg/dl Creatinine 1.16 (0.6-1.4) mg/dl Est Cr Clr Drug Dosing 58.1 ml/min Est GFR ( Amer) 67.6 Est GFR (Non-Af Amer) 58.3 BUN/Creatinine Ratio 21.2 H (10-20) Glucose 76 (70-99) mg/dl POC Glucose 82 117 H (70-99) mg/dl Calcium 8.7 (8.5-10.1) mg/dl Magnesium 1.9 (1.8-2.4) mg/dl 07/30/19 Range/Units 16:14 Sodium (136-145) mmol/L Potassium (3.5-5.1) mmol/L Chloride (98-107) mmol/L Carbon Dioxide (21-32) mmol/L Anion Gap (3-11) BUN (7-18) mg/dl Creatinine (0.6-1.4) mg/dl Est Cr Clr Drug Dosing ml/min Est GFR ( Amer) Est GFR (Non-Af Amer) BUN/Creatinine Ratio (10-20) Glucose (70-99) mg/dl POC Glucose 106 H (70-99) mg/dl Calcium (8.5-10.1) mg/dl Magnesium (1.8-2.4) mg/dl PG Care Time/CCT Total # of Minutes Spent Total Time Spent with Patient: Total time spent is greater than 50% in coordination of care (as documented) at patient's floor/unit and/or counseling patient: Coding Level of Care Code 91163 Subseq Hosp Care Lvl 3 Diagnoses Acute respiratory failure with hypoxia J96.01 Chronic systolic CHF (congestive heart failure) I50.22 Acute kidney injury N17.9 Permanent atrial fibrillation I48.2 Hypertension I10 Hypertension type: unspecified Coronary artery disease I25.119 Associated angina: with unspecified angina Coronary Disease-Associated Artery/Lesion type: unspecified vessel or lesion type [place] vs. transplanted heart: unspecified whether [place] or transplanted heart LBBB (left bundle branch block) I44.7 Diabetes mellitus, type II E11.9; Z79.4 Diabetes mellitus complication status: without complication Diabetes mellitus nursing home insulin use: with watcher [employer]at long goods use BPH (benign prostatic hyperplasia) N40.0 Lower urinary tract symptom presence: symptoms absent Elevated troponin R74.8 COPD (chronic obstructive pulmonary disease) J44.9 COPD type: unspecified COPD History of aortic valve replacement Z95.2 Hyperlipidemia E78.2 Hyperlipidemia type: mixed hyperlipidemia Constipation K59.00 DVT prophylaxis Z29.9 (1) BPH (benign prostatic hyperplasia) Lower urinary tract symptom presence: symptoms absent Qualified Code(s): N40.0 - Benign prostatic hyperplasia without lower urinary tract symptoms (2) Diabetes mellitus, type II Diabetes mellitus complication status: without complication Diabetes mellitus watcher [employer] insulin use: with watcher [employer] long goods use Qualified Code(s): E11.9 - Type 2 diabetes mellitus without complications; Z79.4 - skilled nursing (current) use of insulin (3) Coronary artery disease Associated angina: with unspecified angina Coronary Disease-Associated Artery/Lesion type: unspecified vessel or lesion type [place] vs. transplanted heart: unspecified whether [place] or transplanted heart Qualified Code(s): I25.119 - Atherosclerotic heart disease of [place] coronary artery with unspecified angina pectoris (4) Hyperlipidemia Hyperlipidemia type: mixed hyperlipidemia Qualified Code(s): E78.2 - Mixed hyperlipidemia (5) COPD (chronic obstructive pulmonary disease) COPD type: unspecified COPD Qualified Code(s): J44.9 - Chronic obstructive pulmonary disease, unspecified (6) Hypertension Hypertension type: unspecified Qualified Code(s): I10 - Essential (primary) hypertension
[2019-07-31] MEDS: DOCUSATE SODIUM/SENNA 50/8.6MG TAB PO SCH (12:32)
--- NOTE | 2019-07-31 13:25 | Cardiology Progress Note ---
Date of Service July 31, 2019 Assessment & Plan (1) Acute on chronic systolic (congestive) heart failure: -secondary to dietary noncompliance. -responding well to intravenous diuretics. -continue metoprolol succinate and losartan. -his dry weight at home is 220 pounds. -re-educate on the use of sliding-scale diuretics. (2) Coronary artery disease: -nonobstructive disease at time of catheterization, November 2018. -continue medical management. (3) Status post transcatheter aortic valve replacement (TAVR) using bioprosthesis: -prosthesis is a 26 mm Ruben S3. -normal gradient across valve. -known lhza-is-qxnpctpm perivalvular leak. (4) Left ventricular dysfunction: -current ejection fraction 20-25%. -has had left ventricular dysfunction since the summer. (5) Permanent atrial fibrillation: -refuses anticoagulation-see above Admission and Anticipated Discharge Date Admission Date: July 28, 2019 Subjective The patient is resting comfortably in bed without complaints of chest pain or dyspnea. Now off supplemental oxygen. Physical Exam Physical Exam: In general this is an obese white male in no acute distress. HEENT exam is negative. Neck is supple with full carotid upstrokes. No obvious bruits or transmitted murmurs. Jugular venous pressure is difficult to assess. There is no thyromegaly. Cardiovascular exam reveals an irregular rhythm with distant heart sounds. A 1/6 basal systolic ejection murmur is noted. Lungs noted decreased breath sounds at the bases with rales above. Abdomen is obese without bruits. Extremities reveal intact radial artery pulses bilaterally. 1+ pretibial edema is noted. Results & Data ([facility]) Vital Signs (Past 12 Hours) Vital Signs Temp Pulse Resp BP Pulse Ox 07/31/19 11:54 36.4 C L 78 19 128/77 95 07/31/19 07:53 36.6 C 82 19 118/84 91 07/31/19 03:08 36.4 C L 62 18 117/78 93 Diagnostic Findings detention officer notes rate controlled atrial fibrillation. PG Care Time/CCT Total # of Minutes Spent Total Time Spent with Patient: Total time spent is greater than 50% in coordination of care (as documented) at patient's floor/unit and/or counseling patient: Coding Level of Care Code 52556 Subseq Hosp Care Lvl 3 Diagnoses Acute on chronic systolic (congestive) heart failure I50.23 Coronary artery disease I25.119 Associated angina: with unspecified angina Coronary Disease-Associated Artery/Lesion type: unspecified vessel or lesion type [place] vs. transplanted heart: unspecified whether [place] or transplanted heart Status post transcatheter aortic valve replacement (TAVR) using bioprosthesis Z95.3 Left ventricular dysfunction I51.9 Permanent atrial fibrillation I48.2 (1) Coronary artery disease Associated angina: with unspecified angina Coronary Disease-Associated Artery/Lesion type: unspecified vessel or lesion type [place] vs. transplanted heart: unspecified whether [place] or transplanted heart Qualified Code(s): I25.119 - Atherosclerotic heart disease of [place] coronary artery with unspecified angina pectoris
[2019-07-31] MEDS: INSULIN GLARGINE SOLOSTAR 100 UNITS/ML 3 ML PEN SQ SCH (21:43)
[2019-08-01 08:23] LABS: Albumin Level 2.9 gm/dl (3.4-5.0); BUN Creatinine Ratio 18.1 (10-20); Bilirubin Direct 0.3 mg/dl (0-0.2); Calcium 8.7 mg/dl (8.5-10.1); Creatinine Clr Calc Pharmacy 55.8 ml/min; Est GFR (African American) 64.9; Magnesium 2.2 mg/dl (1.8-2.4); Potassium 3.7 mmol/L (3.5-5.1)
[2019-08-01 08:26] LABS: Bilirubin,Total 1.8 mg/dl (0.2-1)
[2019-08-01] MEDS: INSULIN ASPART 100 UNITS/ML 3 ML PEN SC SCH ×4 (09:16→20:36)
[2019-08-01] MEDS: DOCUSATE SODIUM/SENNA 50/8.6MG TAB PO SCH (09:54)
[2019-08-01] MEDS: ASPIRIN 81 MG ECTAB PO SCH (09:55)
[2019-08-01] MEDS: METOPROLOL SUCC 50MG EXT REL TAB PO SCH (09:55)
[2019-08-01] MEDS: FUROSEMIDE 40 MG in SYRINGE 0 ML IV SCH ×2 (09:55→17:54)
[2019-08-01] MEDS: ATORVASTATIN 40 MG TAB PO SCH (09:55)
[2019-08-01] MEDS: CLOPIDOGREL BISULFATE 75 MG TAB PO SCH (09:55)
[2019-08-01] MEDS: LOSARTAN POTASSIUM 25 MG TAB PO SCH (09:56)
[2019-08-01] MEDS: MAGNESIUM CHLORIDE 64MG DELAYED REL TAB PO SCH (09:56)
[2019-08-01] MEDS: FINASTERIDE 5 MG TAB PO SCH (09:56)
[2019-08-01] MEDS: FLUTICASONE/VILANTEROL 100/25MCG 14 PUFFS/INHALER INH SCH (09:56)
--- NOTE | 2019-08-01 10:02 | Cardiology Progress Note ---
Date of Service August 01, 2019 Assessment & Plan (1) Acute on chronic systolic (congestive) heart failure: -secondary to dietary noncompliance with salt. -continues on intravenous diuretics. -seems compensated at this time. -continue metoprolol succinate and losartan. -his dry weight on his home scale is 220 pounds. -re-educate on the use of sliding-scale diuretics. (2) Coronary artery disease: -nonobstructive disease at time of catheterization, November 2018. -continue medical management. (3) Status post transcatheter aortic valve replacement (TAVR) using bioprosthesis: -prosthesis is a 26 mm Ruben S3. -normal gradient across valve. -known [id number] perivalvular leak. (4) Left ventricular dysfunction: -current ejection fraction 20-25%. -has had left ventricular dysfunction since the summer. (5) Permanent atrial fibrillation: -refuses anticoagulation. Admission and Anticipated Discharge Date Admission Date: July 28, 2019 Subjective The patient is resting comfortably in bedside chair without complaints of chest pain or dyspnea. Slept nearly flat last evening. Physical Exam Physical Exam: In general this is an obese white male in no acute distress. HEENT exam is negative. Neck is supple with full carotid upstrokes. No obvious bruits or transmitted murmurs. Jugular venous pressure is difficult to assess. There is no thyromegaly. Cardiovascular exam reveals an irregular rhythm with distant heart sounds. A 1/6 basal systolic ejection murmur is noted. Lungs are clear without rales, rhonchi or wheezes.. Abdomen is obese without bruits. Extremities reveal intact radial artery pulses bilaterally. Trace to 1+ p retibial edema is noted. Results & Data ([facility]) Vital Signs (Past 12 Hours) Vital Signs Temp Pulse Resp BP BP Pulse Ox 08/01/19 08:04 36.9 C 88 18 144/68 H 98 08/01/19 04:17 36.5 C 85 18 108/74 94 07/31/19 23:34 36.5 C 91 H 18 116/69 93 Diagnostic Findings valet runner notes atrial fibrillation with a controlled ventricular response. PG Care Time/CCT Total # of Minutes Spent Total Time Spent with Patient: Total time spent is greater than 50% in coordination of care (as documented) at patient's floor/unit and/or counseling patient: Coding Level of Care Code 79330 Subseq Hosp Care Lvl 3 Diagnoses Acute on chronic systolic (congestive) heart failure I50.23 Coronary artery disease I25.119 Associated angina: with unspecified angina Coronary Disease-Associated Artery/Lesion type: unspecified vessel or lesion type [place] vs. transplanted heart: unspecified whether [place] or transplanted heart Status post transcatheter aortic valve replacement (TAVR) using bioprosthesis Z95.3 Left ventricular dysfunction I51.9 Permanent atrial fibrillation I48.2 (1) Coronary artery disease Associated angina: with unspecified angina Coronary Disease-Associated Artery/Lesion type: unspecified vessel or lesion type [place] vs. transplanted heart: unspecified whether [place] or transplanted heart Qualified Code(s): I25.119 - Atherosclerotic heart disease of [place] coronary artery with unspecified angina pectoris
[2019-08-01] MEDS: POTASSIUM CHLORIDE 20 MEQ TABCR PO SCH ×2 (10:45→20:35)
[2019-08-01] MEDS: INSULIN GLARGINE SOLOSTAR 100 UNITS/ML 3 ML PEN SQ SCH (20:36)
--- NOTE | 2019-08-01 20:56 | Hospitalist Progress Note ---
Date of Service August 01, 2019 Assessment & Plan (1) Acute respiratory failure with hypoxia: 2nd to decompensated CHF - resolved. CTA chest early in admission negative for PE or pneumonia. (2) Chronic systolic CHF (congestive heart failure): acute/chronic systolic CHF. echo this admission - severe LV dysfunction; EF 20-25%. global hypokinesis. reason for decompensation - dietary indiscretion. diuresing well; has lost at least 10 pounds since admission. stable Creatinine. cont lasix IV BID. repeat BMP am. Cont BB Cont ARB (3) Acute kidney injury: Cr 1.5 at admission. likely cardio-renal. now 1.1-1.2 and stable. bmp in am. (4) Permanent atrial fibrillation: rates controlled. cont BB. refuses anticoagulation. (5) Hypertension: Controlled (6) Coronary artery disease: h/o cath in 07/2018 - various stenotic areas, 30-50% medical management recommended cont BB, asa, plavix, statin troponin minimally elevated at admission - likely demand ischemia from decompensated CHF as opposed to ACS (7) LBBB (left bundle branch block): chronic, old (8) Diabetes mellitus, type II: hold oral agents controlled cont lantus novolog correction/carb coverage BSGs ac/hs DM diet (9) BPH (benign prostatic hyperplasia): cont finasteride and alpha federica (10) Elevated troponin: doubt ACS; likely myocardial demand ischemia in setting of acute resp failure (11) COPD (chronic obstructive pulmonary disease): cont inhalers no issues (12) History of aortic valve replacement: s/p TAVR 2019 - [facility] perivalvular leak noted on echo (13) Hyperlipidemia: statin resumed minimal elevation LFTs likely hepatic congestion from decompensated CHF (14) DVT prophylaxis: add lovenox 40mg daily progressing nicely needs another 1-2 days of diuresis Admission and Anticipated Discharge Date Admission Date: July 28, 2019 Subjective patient feeling good. dyspnea on exertion markedly improved/resolved. laying flat to sleep - orthopnea resolved. still with mild LE edema. admits to excessive TV dinner eating in the weeks leading up to admission. he understands he has to watch his salt intake. no new complaints. tele stable overnight. Review of Systems Constitutional: no fever Respiratory: no cough and no dyspnea Cardiovascular: no chest pain Gastrointestinal: no abdominal pain Physical Exam Constitutional: well developed and well nourished; no acute distress and no altered mental status ENMT: external ear and nose normal, oropharynx normal Respiratory: Auscultation: + diminished lung sounds; no crackles and no wheezes Cardiovascular: Rate/Rhythm: regular rate and + irregularly irregular Heart Sounds: normal S1 and normal S2; no murmur Vessels: posterior tibial pulses present and dorsalis pedis pulses present; no JVD Extremities: + edema (1-2 + b/l) Gastrointestinal (Abdomen): normal bowel sounds, soft, nontender, no hepatosplenomegaly Psychiatric: A+Ox3, euthymic affect Results & Data Results & Data ([facility]) Vital Signs (Past 12 Hours) Vital Signs Temp Pulse Resp BP BP Pulse Ox 08/01/19 19:43 36.8 C 86 22 116/76 95 08/01/19 15:42 36.7 C 88 18 117/81 94 08/01/19 11:55 36.8 C 65 18 125/68 Laboratory Results Laboratory Results - last 24 hr 08/01/19 08/01/19 08/01/19 07:19 07:50 11:28 Sodium 139 Potassium 3.7 Chloride 103 Carbon Dioxide 31 Anion Gap 5.0 BUN 22 H Creatinine 1.20 Est Cr Clr Drug Dosing 55.8 Est GFR ( Amer) 64.9 Est GFR (Non-Af Amer) 56.0 BUN/Creatinine Ratio 18.1 Glucose 79 POC Glucose 86 110 H Calcium 8.7 Magnesium 2.2 Total Bilirubin 1.8 H Direct Bilirubin 0.3 H AST 41 H ALT 39 Alkaline Phosphatase 69 Total Protein 6.0 L Albumin 2.9 L 08/01/19 08/01/19 16:16 20:04 Sodium Potassium Chloride Carbon Dioxide Anion Gap BUN Creatinine Est Cr Clr Drug Dosing Est GFR ( Amer) Est GFR (Non-Af Amer) BUN/Creatinine Ratio Glucose POC Glucose 109 H 158 H Calcium Magnesium Total Bilirubin Direct Bilirubin AST ALT Alkaline Phosphatase Total Protein Albumin PG Care Time/CCT Total # of Minutes Spent Total Time Spent with Patient: Total time spent is greater than 50% in coordination of care (as documented) at patient's floor/unit and/or counseling patient: Coding Level of Care Code 11524 Subseq Hosp Care Lvl 2 Diagnoses Acute respiratory failure with hypoxia J96.01 Chronic systolic CHF (congestive heart failure) I50.22 Acute kidney injury N17.9 Permanent atrial fibrillation I48.2 Hypertension I10 Hypertension type: unspecified Coronary artery disease I25.119 Associated angina: with unspecified angina Coronary Disease-Associated Artery/Lesion type: unspecified vessel or lesion type [place] vs. transplanted heart: unspecified whether [place] or transplanted heart LBBB (left bundle branch block) I44.7 Diabetes mellitus, type II E11.9; Z79.4 Diabetes mellitus complication status: without complication Diabetes mellitus rodent exterminator insulin use: with rodent exterminator use BPH (benign prostatic hyperplasia) N40.0 Lower urinary tract symptom presence: symptoms absent Elevated troponin R74.8 COPD (chronic obstructive pulmonary disease) J44.9 COPD type: unspecified COPD History of aortic valve replacement Z95.2 Hyperlipidemia E78.2 Hyperlipidemia type: mixed hyperlipidemia DVT prophylaxis Z29.9 (1) BPH (benign prostatic hyperplasia) Lower urinary tract symptom presence: symptoms absent Qualified Code(s): N40.0 - Benign prostatic hyperplasia without lower urinary tract symptoms (2) Diabetes mellitus, type II Diabetes mellitus complication status: without complication Diabetes mellitus rodent exterminator insulin use: with rodent exterminator use Qualified Code(s): E11.9 - Type 2 diabetes mellitus without complications; Z79.4 - termination clerk (current) use of insulin (3) Coronary artery disease Associated angina: with unspecified angina Coronary Disease-Associated Artery/Lesion type: unspecified vessel or lesion type [place] vs. transplanted heart: unspecified whether [place] or transplanted heart Qualified Code(s): I25.119 - Atherosclerotic heart disease of [place] coronary artery with unspecified angina pectoris (4) Hyperlipidemia Hyperlipidemia type: mixed hyperlipidemia Qualified Code(s): E78.2 - Mixed hyperlipidemia (5) COPD (chronic obstructive pulmonary disease) COPD type: unspecified COPD Qualified Code(s): J44.9 - Chronic obstructive pulmonary disease, unspecified (6) Hypertension Hypertension type: unspecified Qualified Code(s): I10 - Essential (primary) hypertension
[2019-08-02 07:55] LABS: BUN Creatinine Ratio 17.4 (10-20); Calcium 9.2 mg/dl (8.5-10.1); Creatinine Clr Calc Pharmacy 55.7 ml/min; Est GFR (African American) 65.5; Est GFR (Non-African American) 56.5; Potassium 3.9 mmol/L (3.5-5.1)
[2019-08-02] MEDS: POTASSIUM CHLORIDE 20 MEQ TABCR PO SCH (08:34)
[2019-08-02] MEDS: MAGNESIUM CHLORIDE 64MG DELAYED REL TAB PO SCH (08:35)
[2019-08-02] MEDS: FINASTERIDE 5 MG TAB PO SCH (08:35)
[2019-08-02] MEDS: ATORVASTATIN 40 MG TAB PO SCH (08:35)
[2019-08-02] MEDS: METOPROLOL SUCC 50MG EXT REL TAB PO SCH (08:35)
[2019-08-02] MEDS: DOCUSATE SODIUM/SENNA 50/8.6MG TAB PO SCH (08:35)
[2019-08-02] MEDS: ASPIRIN 81 MG ECTAB PO SCH (08:35)
[2019-08-02] MEDS: LOSARTAN POTASSIUM 25 MG TAB PO SCH (08:35)
[2019-08-02] MEDS: FLUTICASONE/VILANTEROL 100/25MCG 14 PUFFS/INHALER INH SCH (08:36)
[2019-08-02] MEDS: CLOPIDOGREL BISULFATE 75 MG TAB PO SCH (08:36)
[2019-08-02] MEDS: INSULIN ASPART 100 UNITS/ML 3 ML PEN SC SCH ×2 (08:36→12:36)
[2019-08-02] MEDS ORDERED: ENOXAPARIN INJ 40 MG/0.4 ML SYR SQ SCH (09:00)
[2019-08-02] MEDS: FUROSEMIDE 40 MG in SYRINGE 0 ML IV SCH (10:00)
--- NOTE | 2019-08-02 10:33 | Cardiology Progress Note ---
Date of Service August 02, 2019 Assessment & Plan (1) Acute on chronic systolic (congestive) heart failure: -secondary to dietary noncompliance with salt. -seems compensated at this time. -his dry weight on his home scale is 220 pounds. -reviewed sliding-scale diuretics. -stable for hospital discharge. (2) Coronary artery disease: -nonobstructive disease at time of cath, November 2018. -continue medical management. (3) Status post transcatheter aortic valve replacement (TAVR) using bioprosthesis: -prosthesis is a 26 mm Ruben S3. -normal gradient across valve. -known [id number] perivalvular leak. (4) Left ventricular dysfunction: -current ejection fraction 20-25%. -left ventricular dysfunction since the summer. (5) Permanent atrial fibrillation: -refuses anticoagulation. Admission and Anticipated Discharge Date Admission Date: July 28, 2019 Subjective The patient is resting comfortably at the bedside without complaints of chest pain or dyspnea. He is anxious for hospital discharge. Physical Exam Physical Exam: In general this is an obese white male in no acute distress. HEENT exam is negative. Neck is supple with full carotid upstrokes. No obvious bruits or transmitted murmurs. Jugular venous pressure is difficult to assess. There is no thyromegaly. Cardiovascular exam reveals an irregular rhythm with distant heart sounds. A 1/6 basal systolic ejection murmur is noted. Lungs are clear without rales, rhonchi or wheezes. Abdomen is obese without bruits. Extremities reveal intact radial artery pulses bilaterally. Trace to 1+ pretibial edema is noted. Results & Data ([facility]) Vital Signs (Past 12 Hours) Vital Signs Temp Pulse Resp BP BP Pulse Ox 08/02/19 07:02 36.6 C 53 L 19 138/79 90 08/02/19 03:23 36.2 C L 76 19 99/64 L 96 08/01/19 23:39 36.7 C 78 19 108/72 95 PG Care Time/CCT Total # of Minutes Spent Total Time Spent with Patient: Total time spent is greater than 50% in coordination of care (as documented) at patient's floor/unit and/or counseling patient: Coding Level of Care Code 17419 Subseq Hosp Care Lvl 3 Diagnoses Acute on chronic systolic (congestive) heart failure I50.23 Coronary artery disease I25.119 Associated angina: with unspecified angina Coronary Disease-Associated Artery/Lesion type: unspecified vessel or lesion type [place] vs. transplanted heart: unspecified whether [place] or transplanted heart Status post transcatheter aortic valve replacement (TAVR) using bioprosthesis Z95.3 Left ventricular dysfunction I51.9 Permanent atrial fibrillation I48.2 (1) Coronary artery disease Associated angina: with unspecified angina Coronary Disease-Associated Artery/Lesion type: unspecified vessel or lesion type [place] vs. transplanted heart: unspecified whether [place] or transplanted heart Qualified Code(s): I25.119 - Atherosclerotic heart disease of [place] coronary artery with unspecified angina pectoris
--- NOTE | 2019-08-02 11:30 | Discharge Summary ---
Date of Service date of admission - July 28, 2019 date of discharge - August 02, 2019 Admission HPI Per Admitting Provider 83yo male with h/o severe , s/p TAVR 2019 at [facility]; chronic systolic CHF with EF 25%; permanent a.fib; COPD; T2DM; and LBBB who presents with worsening dyspnea starting some time yesterday. Then, overnight, he had wheezing and orthopnea. He woke up in the middle of the night with dyspnea and propped himself on pillows to help his breathing. He has chronic LE edema which he states is unchanged from baseline. Had a cough with sputum about 2 weeks ago but this is resolved. Upon awakening this am he had severe dyspnea with minimal activity. Denies any fevers. No chest pain. Normal appetite of late. Denies excessive salt intake. Denies weight gain; in fact has lost weight (intentional, for health purposes). Denies abdominal bloating. He does not know if he has been taking his lasix. Principal Diagnosis acute hypoxic respiratory failure 2nd to acute/chronic systolic CHF Discharge Exam Constitutional well developed and well nourished; no acute distress and no altered mental status ENMT external ear and nose normal, oropharynx normal Neck trachea midline, no thyromegaly Respiratory no respiratory distress Auscultation: no crackles and no wheezes Cardiovascular Rate/Rhythm: regular rate and + irregularly irregular Heart Sounds: normal S1, normal S2 and + murmur (1/6 ADAM LSB) Vessels: posterior tibial pulses present and dorsalis pedis pulses present; no JVD Extremities: + edema (trace b/l ) Gastrointestinal (Abdomen) normal bowel sounds, soft, nontender, no hepatosplenomegaly Psychiatric A+Ox3, euthymic affect Discharge Data Allergies Allergy/AdvReac Type Severity Reaction Status Date / Time Iodinated Contrast Media Allergy Unknown HIVES Verified 07/28/19 17:20 amoxicillin [From Augmentin] Allergy Unknown Verified 07/28/19 17:20 clavulanic acid Allergy Unknown Verified 07/28/19 17:20 [From Augmentin] oxaprozin [From Daypro] Allergy Unknown Verified 07/28/19 17:20 sitagliptin [From Januvia] Allergy Unknown Verified 07/28/19 17:20 Consultations [facility] Cardiology - Ameya Morris MD PT, OT Ordered Studies 1. US venous doppler LE BI - negative for DVT bilaterally. 2. CT angio chest PE protocol - negative for PE. No pneumonia. b/l pleural effusions with pulmonary edema. 3. echocardiogram - * EF 20-25% * bioprosthetic aortic valve present with marcel-valvular leak on doppler * mild-moderate mitral regurgitation * mild aortic regurgitation Hospital Course (1) Acute respiratory failure with hypoxia: 2nd to decompensated systolic CHF - resolved. Required BIPAP early on in his stay; weaned to NC O2, then ultimately room air. CTA chest negative for PE or pneumonia. (2) Chronic systolic CHF (congestive heart failure): acute/chronic systolic CHF. echo this admission - severe LV dysfunction; EF 20-25%. global hypokinesis. reason for decompensation - dietary indiscretion. diuresed well with IV lasix. 8.5kg of weight loss while hospitalized . discharge weight 105.2 kg (231 pounds). stable Creatinine throughout the stay. Pre-hospital -- he had been taking lasix on a PRN basis at home. Recommended lasix 40mg qam along with K/mag supplementation EVERY DAY. he potentially may need higher dose or BID dosing. defer to Dr Morris at time of outpatient follow-up. need for AICD given depressed EF? Remains on beta federica and losartan. CHF instructions including dietary information, importance of daily weights, etc given to patient. Home health will be set up to help with compliance, CHF teaching, etc. (3) Acute kidney injury: Cr 1.5 at admission. likely cardio-renal. now 1.1-1.2 and stable. (4) Permanent atrial fibrillation: rates controlled with metoprolol xl. Has refused anticoagulation in the past. (5) Hypertension: Controlled with beta federica, ARB, etc while here (6) Coronary artery disease: h/o cath in 07/2018 - various stenotic areas, 30-50% medical management recommended at that time cont BB, asa, plavix, statin troponin minimally elevated at admission - likely demand ischemia from decompensated CHF as opposed to ACS (7) LBBB (left bundle branch block): chronic, old (8) Diabetes mellitus, type II: resume oral agents at discharge along with once-daily basaglar BSGs controlled throughout his stay (9) BPH (benign prostatic hyperplasia): cont finasteride and alpha federica (10) Elevated troponin: doubt ACS; likely myocardial demand ischemia in setting of acute resp failure (11) COPD (chronic obstructive pulmonary disease): continue usual inhalers no issues or exacerbation during the visit (12) History of aortic valve replacement: s/p TAVR 2019 - [facility] perivalvular leak noted on echo (13) Hyperlipidemia: continue statin minimal elevation of LFTs likely due to hepatic congestion from decompensated CHF recommend repeat LFTs as outpatient at time of hospital follow-up to ensure stability Total Time Total Time Spent Total Time Spent (In Minutes): 40 Total Time Includes: Examination of the Patient, Discharge Planning, Medication Reconciliation and Communication With Other Providers Discharge Plan Discharge Items Patient Disposition: Home - Home Health Services Reason For Visit: ACUTE HYPOXIC RESPIRATORY FAILURE Discharge Diagnosis: acute on chronic congestive heart failure (water build-up in the lungs from a weak heart making it hard to breath) Activity: As commented below Activity Comment: gradually increase activities over the next 3-4 days Non-emergency contact: Primary Care Provider and Hot Mill Operator Call non-emergency contact if: you have any medication questions, your symptoms worsen and you have a fever Follow-up/Referrals: Keegan Morris MD [Physician] - (see Dr Morris within 1 week ) Ezio Thao MD [Primary Care Provider] - 08/08/19 2:15 pm (see Dr Thao within 1 week) Diet: Carb Consistent or DM2 and Heart Healthy Fluids: 1800ml (7 cups) Addtl Attending Provider Instructions: You presented with difficulty breathing as a result of water/fluid retention in the lungs from your congestive heart failure. A CAT scan did NOT show blood clots or pneumonia in the lungs. You improved with intravenous lasix (diuretic/water pills) over the course of 4- 5 days. You lost a significant amount of weight while here. In fact you lost over 15 pounds of water weight ! There are several things that are very important to keep from developing water retention/fluid build-up -- 1. eat a diet low in salt -- * high salt foods include TV dinners, canned soup, home-made soup, fried foods, fast food, chips, deli meats (salami, ham, etc) 2. limit TOTAL fluid intake to 1800cc (1.8 liters) each day; excessive fluid intake will cause swelling in your legs, lungs, etc 3. take your furosemide (lasix) 40mg EVERY MORNING without fail; you may need it twice a day; Dr Morris will let you know. This is your diuretic/water pill. 4. take your potassium supplement EVERY MORNING 5. Wear a mask when you go out in public (to the store, post office, etc) OR wear a mask when you are within 6 feet of others to prevent the transmission of COVID-19 (coronavirus). 5. WEIGH yourself EVERY MORNING on the same scale. Your weight today at [facility] is 231 pounds. Watch for any weight gain of more than 2-3 pounds in 1-2 days. This is usually a sign of water retention. If you start to have weight gain call Dr Morris's office RIGHT AWAY or call your family doctor. Don't wait - please call. Follow-up - see separate section Return to [facility] if - * you have fever over 100.4 degrees * you have worsening shortness of breath * you have chest pains * any other concerns Addtl Operations Manager Provider Instructions: Congestive Heart Failure Instructions: Call 911 and go to the Emergency Room if: * You have tightness or pain in your chest that does not go away with rest or Nitroglycerin * You are very short of breath even with rest Call your doctor if any of the following symptoms or problems start or get worse: * Shortness of breath or difficulty breathing * Wake up at night short of breath * Chest pain * Cough * Swelling of your hands, fee, or legs * More fatigued or tired with your normal activity * Palpitations - sudden fast heart beats WEIGHT * Weigh yourself every morning after using the bathroom. * Use the same scale. * Wear the same amount of clothing. * Write your weight down on your chart. * Call your doctor right away if you gain more than 2-3 pounds in 1-2 days. This is usually a sign of water retention from your congestive heart failure* Your discharge weight is 231 pounds. MEDICATIONS * Use this discharge instruction sheet for instructions. * Take your medications at the time your doctor ordered. * Do not skip a dose of your medicines. * If you miss a dose of medicine, take as soon as possible, but DO NOT DOUBLE A DOSE. * Read your medicine information when you get home. * Know all of the side effects of your medicine. * Call your doctor's office if you have any side effects. * Be sure all of your doctors know what medicine and herbs you take (including cold, flu, and herbal medicine). * Pain Medicine: If you do not get relief from your pain, please call your doctor for help. Take the following with you to your follow-up doctor appointments: * Weight Chart * Medication List * List of questions Do not drink excessive alcohol, beer or wine. Pending Studies at Discharge: No Stand-Alone Forms: My [facility], Smoking Cessation Medications and DC Order Prescriptions: Continued glimepiride 4 mg tablet 4 mg PO QAM Qty: 90 RF: 3 (DME) OneTouch Ultra Blue Test Strip strip See Dose Instructions .ROUTE .MEDSUPPLY Qty: 100 RF: 0 Symbicort 80-4.5 mcg/actuation HFA aerosol inhaler 2 puffs INH BID Qty: 10.2 RF: 4 (DME) BD AutoShield Duo Pen Needle 30 gauge x 3/16" needle See Dose Instructions .ROUTE .MEDSUPPLY Qty: 100 RF: 3 metformin 1,000 mg tablet 1,000 mg PO DAILY Qty: 90 RF: 1 metoprolol succinate 50 mg tablet extended release 24 hr 50 mg PO DAILY Qty: 90 RF: 3 losartan 25 mg tablet 25 mg PO DAILY Qty: 90 RF: 3 clopidogrel [Plavix] 75 mg tablet 75 mg PO DAILY Qty: 90 RF: 3 finasteride 5 mg tablet 5 mg PO DAILY Qty: 90 RF: 1 atorvastatin 40 mg tablet 40 mg PO DAILY Qty: 90 RF: 3 aspirin [Aspir-81] 81 mg Tablet,Delayed Release (Dr/Ec) 81 mg PO DAILY RF: 0 magnesium chloride 64 mg Tablet,Delayed Release (Dr/Ec) 64 mg PO DAILY RF: 0 Basaglar KwikPen U-100 Insulin 100 unit/mL (3 mL) insulin pen 22 units subcut HS RF: 0 Changed furosemide 40 mg tablet 40 mg PO QAM Qty: 90 RF: 3 potassium chloride 20 mEq tablet extended release 20 meq PO DAILY Qty: 90 RF: 3 Discharge Orders: Discharge Order (Routine); Ordered 08/02/19 Ordered By: Werner Bustos/Other Patient Handouts: Tips for Using Less Salt, Low-Salt Choices, Diet Low Salt Dc Admission Data Admit Date/Time: 07/28/19 16:30 Attending Provider: Werner Hanna Admit Provider: Werner Hanna Primary Care Provider: Ezio Thao Other Providers: Werner Hanna ; Abdiel Wilson ; [facility] Other Interventions: Discharge Summary Assessment (RN) Last Done: 08/02/19 13:08 Coding Level of Care Code D/C Day Management >30 mins Diagnoses Acute respiratory failure with hypoxia J96.01 Chronic systolic CHF (congestive heart failure) I50.22 Acute kidney injury N17.9 Permanent atrial fibrillation I48.2 Hypertension I10 Hypertension type: unspecified Coronary artery disease I25.119 Associated angina: with unspecified angina Coronary Disease-Associated Artery/Lesion type: unspecified vessel or lesion type Inupiat vs. transplanted heart: unspecified whether venetie ira or transplanted heart LBBB (left bundle branch block) I44.7 Diabetes mellitus, type II E11.9; Z79.4 Diabetes mellitus complication status: without complication Diabetes mellitus long term care phlebotomist insulin use: with long term care phlebotomist use BPH (benign prostatic hyperplasia) N40.0 Lower urinary tract symptom presence: symptoms absent Elevated troponin R74.8 COPD (chronic obstructive pulmonary disease) J44.9 COPD type: unspecified COPD History of aortic valve replacement Z95.2 Hyperlipidemia E78.2 Hyperlipidemia type: mixed hyperlipidemia
== END 2019-08-02 16:09 | disposition home health service (06) | DRG 291 ==
LOC: ED 13:56 → SUATTDRO 16:30 → 2S 16:30

== ENCOUNTER 2024-01-04 10:57 | Inpatient (IN) ==
--- NOTE | 2024-01-04 11:17 | Emergency Department Note ---
Impression & Plan Acute exacerbation of CHF (congestive heart failure) ADMIT ED Provider Note HPI: History obtained from patient. The patient is a 88-year-old gentleman with history of atrial fibrillation, diastolic heart failure, bovine prosthetic aortic valve, presents emergency department with a chief complaint of shortness of breath with exertion over the past 2 weeks. Patient states he has not had any chest pain but over the past 2 weeks he has been getting increasingly short of breath even with minimal exertion. On arrival here to the ED the patient is hemodynamically stable, he is saturating 94% on room air on arrival. He does display some minimal increased work of breathing on my initial assessment as he is just ambulated down the hallway to get into the ED bed. Patient denies any recent fever/cough, denies any recent episodes of chest pain. ROS: - Per HPI Differential Diagnosis: Acute CHF exacerbation, COPD, pneumonia, viral upper respiratory infection, acute coronary syndrome, pulmonary embolism, amongst other potential pathologies. *Outpatient medications and allergy history reviewed. PE: General: Alert HEENT: Normocephalic, trachea midline Eyes: Extraocular eye movement is intact, no scleral erythema Pulmonary: Clear to auscultation bilaterally, no wheezing Cardio: Regular rate and irregular rhythm GI: Abdomen is soft to palpation : No suprapubic tenderness MSK: No evidence of trauma or malformation of the extremities, 2+ edema bilateral lower extremities Skin: No evidence of rash Neuro: Alert, no focal deficits Psychiatric: Cooperative INDEPENDENT INTERPRETATIONS: lunchroom monitor: (As interpreted by myself): - An order was placed for continuous cardiac monitoring - Patient was noted to be in atrial fibrillation with a rate of 95 EKG: (As interpreted by myself): Rate: 110 Rhythm: Atrial fibrillation Intervals: QRS 136 ms, QTc 500 ms, ST changes: No ST elevation Time: 1122 Chest x-ray: (As interpreted by myself): Moderate pulmonary edema Interventions provided in ED: -IV Lasix Medical Decision Making: IV was established and lab work obtained, patient was placed on campus monitor. Lab work shows a mild leukocytosis at 10.85, hemoglobin is normal, platelet count is normal, venous blood gas shows normal pH and normal pCO2. CMP shows no critical findings, troponin is noted to be elevated at 123.5, EKG does not show any acute ischemic changes per my interpretation. BNP is elevated at 576. Chest x-ray is suggestive of fluid overload. Patient was given IV Lasix here in the ED. Given his troponin elevation and dyspnea with exertion, I do feel the patient would benefit from admission for cardiology consultation and further diuresis. Patient was in agreement to this plan. Case was discussed with the on-call hospitalist, Dr. Gutierrez, and the patient was placed for admission in stable condition. Consultants/Discussions held with other healthcare providers: -Hospitalist, Dr. Gutierrez Disposition discussion held by myself with: -Patient Diagnosis: 1. Acute CHF exacerbation 2. Elevated high-sensitivity troponin level 3. Dyspnea on exertion Disposition: Admission Ld Bland DO Emergency Medicine Past Med/Surg History Problem List (Updated 01/04/24 @ 13:26 by Ld Bland DO) Acute exacerbation of CHF (congestive heart failure) (Acute) Skin lesion Cerumen impaction Encounter for preventive care Colon cancer screening Vitamin D deficiency Osteoarthritis Atrial fibrillation Constipation Left ventricular dysfunction Acute on chronic systolic (congestive) heart failure Permanent atrial fibrillation (Chronic) Diagnosed 06/25. Rate controlled with atenolol 100mg daily. Previously AC via rivaroxaban. Discontinued due to BRBPR. Declined EGD/Colonocscopy. Now on ASA 81mg Aortic stenosis (Chronic) Symptomatic, severe, with ORACIO 0.8cm2, mean gradient 35mmHg, Ao V2: 3.6m/s; Awaiting CT surgery evaluation. Followed by cardiology. Acute on chronic CHF exacerbation 06/27 felt to be due to disease. Managed with furosemide 40mg daily PRN to maintain body weight at 255lbs Hypertension (Chronic) Long standing. Managed with atenolol Chronic systolic CHF (congestive heart failure) Hyperlipidemia COPD (chronic obstructive pulmonary disease) BPH (benign prostatic hyperplasia) Managed with finasteride + doxazosin. Followed by urology Diabetes mellitus, type II (Chronic) Controlled, insulin dependent. Managed with glargine 22u QHS + metformin. HbA1c 5.7% (04/27). LBBB (left bundle branch block) (Chronic) Coronary artery disease (Chronic) Catheterization (07/28) 30% left main, sequential 50% stenoses in the mid and distal LAD, and a 30% distal RCA stenosis. CT surgery evaluation pending given severe . Managed with ASA + statin + atenolol. Followed by cardiology. 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 Periodic corticosteroid injections of the knees with Dr. Ruano. Medical History Vitamin B12 deficiency Severe aortic stenosis Dyslipidemia COPD (chronic obstructive pulmonary disease) BPH (benign prostatic hyperplasia) Diabetes Paroxysmal A-fib Ozcmw-Ldhcvqzkx-Brjus (WPW) pattern Surgical History History of testicular surgery enlarged testes H/O Mohs micrographic surgery for skin cancer History of aortic valve replacement Family History Unknown Cancer Unknown Coronary heart disease Brother Patient's brother is Family Health Status Of Brother - Cirrhosis Pancreatic malignant neoplasm Malignant Pancreatic Neoplasm Father Heart disease question of Mother , of "old age" No problems noted. Social History Smoking Status: Never smoker Second Hand Exposure: No; Do You Dip or Chew Tobacco: No; Hx Alcohol Use: No Hx Substance Use: No Preferred Language: Andorran Communication Ability: Effective Synthetic Department Supervisor Required: No Beliefs That Will Affect Care: None marital status: Single Current Living Situation: Other Current Living Situation Comment: in [place] with friend current occupational status: retired current occupation: worked for [employer] Feels Safe at Home: Yes Seatbelt Use: always Assistive Devices: None Allergies Allergies Allergy/AdvReac Type Severity Reaction Status Date / Time Iodinated Contrast Media Allergy Unknown HIVES Verified 08/27/22 10:07 amoxicillin [From Augmentin] Allergy Unknown Verified 08/27/22 10:07 clavulanic acid Allergy Unknown Verified 08/27/22 10:07 [From Augmentin] oxaprozin [From Daypro] Allergy Unknown Verified 08/27/22 10:07 sitagliptin [From Januvia] Allergy Unknown Verified 08/27/22 10:07 Home Meds Home Medications Medication Instructions Recorded Confirmed aspirin 81 mg tablet,delayed 81 mg PO DAILY 06/10/18 08/27/22 release (Aspir-) Previous Rx's Medication Instructions Recorded blood sugar diagnostic (OneTouch #100 ea 09/05/19 Ultra Blue Test Strip) diclofenac sodium 1 % topical gel 4 gm topical TID PRN knee pain 09/06/19 (Voltaren) #100 grams cholecalciferol (vitamin D3) 50 50 mcg PO DAILY #90 caps 05/07/22 mcg (2,000 unit) capsule insulin glargine 100 unit/mL (3 22 unit (0.22 mL) subcut HS #15 mL 08/27/22 mL) subcutaneous pen (Basaglar KwikPen U-100 Insulin) pen needle,diabetic dual safty 30 #100 ea 08/27/22 gauge x 3/16" (BD AutoShield Duo Pen Needle) atorvastatin 40 mg tablet 40 mg PO DAILY #90 tabs 10/16/22 furosemide 40 mg tablet 60 mg (1.5 x 40 mg) PO QAM #135 10/16/22 tabs metformin 1,000 mg tablet 1,000 mg PO DAILY #90 tabs 10/16/22 potassium chloride 20 mEq 20 meq PO DAILY #90 tabs 10/16/22 tablet,extended release finasteride 5 mg tablet 5 mg PO DAILY #90 tabs 04/01/23 losartan 25 mg tablet 25 mg PO DAILY #90 tabs 01/01/24 metoprolol succinate 50 mg See Rx Instructions .Route 01/01/24 tablet,extended release 24 hr .COMPLEX #90 tabs Results & Data (ED) Vital Signs Vital Signs - 24 hr 01/04/24 11:04 01/04/24 11:14 01/04/24 11:27 Temperature 36.6 C Temperature Source Temporal Artery Scan Pulse Rate 108 H 91 H Pulse Rate from SpO2 Sensor 98 H Respiratory Rate 21 24 Respiratory Effort / Characteristics Non-Labored Respiratory Depth Normal Blood Pressure 133/102 H 159/101 H Blood Pressure Mean 112 120 Pulse Oximetry 94 95 94 Oxygen Delivery Method Room Air Room Air Sepsis Recent Fever Within 48 Hours No Sepsis New/Unexplained Change in Mental Status No Sepsis Action Taken by Nursing No Action Required 01/04/24 12:06 01/04/24 12:43 01/04/24 13:00 Temperature Temperature Source Pulse Rate 100 H 104 H 97 H Pulse Rate from SpO2 Sensor 98 H Respiratory Rate 24 28 H Respiratory Effort / Characteristics Respiratory Depth Blood Pressure 146/120 H 183/113 H Blood Pressure Mean 128 128 Pulse Oximetry 94 95 Oxygen Delivery Method Sepsis Recent Fever Within 48 Hours Sepsis New/Unexplained Change in Mental Status Sepsis Action Taken by Nursing Laboratory Data 01/04/24 11:16 01/04/24 11:16 Lab Results 01/04/24 01/04/24 Range/Units 11:16 13:00 WBC 10.85 H (4.8-10.8) K/ul RBC 4.89 (4.70-6.10) M/uL Hgb 14.6 (14.0-18.0) g/dl Hct 44.8 (42.0-52.0) % MCV 91.6 (80.0-100.0) fL MCH 29.9 (25.0-34.0) pg MCHC 32.6 (32.0-36.0) g/dL RDW Std Deviation 47.9 H (36.4-46.3) fL RDW Coeff of Tyson 14.3 (11.5-14.5) % Plt Count 191 (130-400) K/uL MPV 12.0 (9.4-12.4) fL Immature Gran % (Auto) 0.5 % Neut % (Auto) 79.4 % Lymph % (Auto) 10.0 % [place] % (Auto) 8.1 % Eos % (Auto) 1.4 % Baso % (Auto) 0.6 % Neut # (Auto) 8.63 H (1.40-6.50) K/uL Lymph # (Auto) 1.08 L (1.20-3.40) K/uL [place] # (Auto) 0.88 H (0.11-0.59) K/uL Eos # (Auto) 0.15 (0.00-0.50) K/uL Baso # (Auto) 0.06 (0.00-0.20) K/uL Immature Gran # (Auto) 0.05 (0.01-0.20) K/uL PT 11.5 (9.0-12.0) Seconds INR 1.1 (0.9-1.1) VBG pH 7.40 (7.36-7.41) VBG pCO2 38 (38-50) mmHg VBG pO2 40 mmHg VBG HCO3 24 mmol/L VBG O2 Saturation 68.8 % VBG Base Excess -1.1 mEq/L Sodium 143 (136-145) mmol/L Potassium 4.5 (3.5-5.1) mmol/L Chloride 109 H (98-107) mmol/L Carbon Dioxide 25 (21-32) mmol/L Anion Gap 9 (3-11) BUN 18 (6-23) mg/dl Creatinine 1.26 (0.6-1.4) mg/dl Est Cr Clr Drug Dosing Not Reportable eGFR 55.20 BUN/Creatinine Ratio 14.3 (10-20) Glucose 160 H (70-99(Fasting)) mg/dl Calcium 9.5 (8.6-10.3) mg/dl Total Bilirubin 1.7 H (0.2-1.0) mg/dl AST 35 (13-39) U/L ALT 32 (7-52) U/L Alkaline Phosphatase 61 (34-104) U/L Troponin I High Sens 123.5 H* (0-20) pg/ml B-Natriuretic Peptide 576 H (0-100) pg/ml Total Protein 6.9 (6.0-8.3) gm/dl Albumin 3.7 (3.4-5.0) gm/dl Globulin 3.2 (2.5-4.0) gm/dl Albumin/Globulin Ratio 1.2 (0.9-2) Urine Color Yellow Urine Appearance Clear (Clear) Urine pH 6.0 (4.5-7.5) Ur Specific Raymond 1.014 (1.000-1.030) Urine Protein 1+ H (Negative) Urine Glucose (UA) Negative (Negative) Urine Ketones Negative (Negative) Urine Blood 3+ H (Negative) Urine Nitrite Negative (Negative) Urine Bilirubin Negative (Negative) Urine Urobilinogen Negative (Negative) Ur Leukocyte Esterase Negative (Negative) Urine WBC (Auto) 0-5 (0-5) /hpf Urine RBC (Auto) >20 H (0-2) /hpf U Hyaline Cast (Auto) 3-5 H (0-2) /lpf U Epithel Cells (Auto) 0-2 (0-2) /hpf Urine Bacteria (Auto) None Seen (None Seen) Administered Medications Discontinued Medications Furosemide (Furosemide 40 Mg/4 Ml Vial) 40 mg IV ONE ONE Stop: 01/04/24 12:15 Last Admin: 01/04/24 12:21 Dose: 40 mg Documented By: RAOUL Imaging Data Radiologist's Impression: Chest X-Ray 01/04/24 11:14 XR chest 1V portable CLINICAL HISTORY: Dyspnea COMPARISON STUDY: Chest radiograph July 28, 2019. Chest CT July 29, 2019. FINDINGS: A nonunited proximal right humeral fracture is incidentally noted. There is no pneumothorax. There are small bilateral pleural effusions. Cardiomegaly is unchanged. There is mild pulmonary edema. Hazy bibasilar opacities are present. IMPRESSION: Cardiomegaly with interstitial pulmonary edema and small bilateral pleural effusions with associated bibasilar opacities. ACT 112: Negative or not required by law. Electronically signed by: Krish Wilkinson M.D. 01/04/2024 11:43 AM Discharge Plan Visit Data Chief Complaint: Hypertension Stated Complaint: HIGH BP ED Provider: Ld Bland Discharge Problem: Acute exacerbation of CHF (congestive heart failure) Forms Stand Alone Forms: [facility] [employer] [employer] Prescriptions Prescriptions: No Action (DME) OneTouch Ultra Blue Test Strip Strip See Dose Instructions .ROUTE .MEDSUPPLY Qty: 100 3RF Dose Instruction: As directed Rx Instructions: Use twice daily as directed atorvastatin 40 mg tablet 40 mg PO DAILY Qty: 90 3RF furosemide 40 mg tablet 60 mg PO QAM Qty: 135 3RF metformin 1,000 mg tablet 1,000 mg PO DAILY Qty: 90 3RF potassium chloride 20 mEq tablet extended release 20 meq PO DAILY Qty: 90 3RF finasteride 5 mg tablet 5 mg PO DAILY Qty: 90 1RF metoprolol succinate 50 mg tablet extended release 24 hr See Rx Instructions .ROUTE .COMPLEX Qty: 90 3RF Dose Instruction: TAKE ONE TABLET BY MOUTH DAILY Rx Instructions: TAKE ONE TABLET BY MOUTH DAILY losartan 25 mg tablet 25 mg PO DAILY Qty: 90 3RF diclofenac sodium [Voltaren] 1 % gel 4 gm TOP TID PRN (Reason: knee pain) Qty: 100 2RF Rx Instructions: apply to right knee insulin glargine [Basaglar KwikPen U-100 Insulin] 100 unit/mL (3 mL) insulin pen 22 unit subcut HS Qty: 15 3RF (DME) BD AutoShield Duo Pen Needle 30 gauge x 3/16" needle See Dose Instructions .ROUTE .MEDSUPPLY Qty: 100 3RF Dose Instruction: As directed Rx Instructions: use one daily--Dx: E11.9 Type 2 Diabetes Mellitus cholecalciferol (vitamin D3) 50 mcg (2,000 unit) capsule 50 mcg PO DAILY Qty: 90 1RF aspirin [Aspir-81] 81 mg Tablet,Delayed Release (Dr/Ec) 81 mg PO DAILY Referrals Referrals: PCP,NO [Primary Care Provider] -
[2024-01-04 11:38] LABS: Base Excess VBG -1.1 mEq/L; HCO3 VBG 24 mmol/L; Oxygen Saturation VBG 68.8 %; PCO2 VBG 38 mmHg (38-50); PO2 VBG 40 mmHg
--- NOTE | 2024-01-04 11:44 | XRay Report ---
XR chest 1V portable CLINICAL HISTORY: Dyspnea COMPARISON STUDY: Chest radiograph July 28, 2019. Chest CT July 29, 2019. FINDINGS: A nonunited proximal right humeral fracture is incidentally noted. There is no pneumothorax . There are small bilateral pleural effusions. Cardiomegaly is unchanged. There is mild pulmonary laura ma. Hazy bibasilar opacities are present. IMPRESSION: Cardiomegaly with interstitial pulmonary edema and small bilateral pleural effusions wit h associated bibasilar opacities. ACT 112: Negative or not required by law. Electronically signed by: Krish Wilkinson M.D. 01/04/2024 11:43 AM
[2024-01-04 11:45] LABS: Basophils # (auto) 0.06 K/uL (0.00-0.20); Basophils % (auto) 0.6 %; Eosinophils # (auto) 0.15 K/uL (0.00-0.50); Eosinophils % (auto) 1.4 %; Hematocrit (blood only) 44.8 % (42.0-52.0); Hemoglobin 14.6 g/dl (14.0-18.0); Immature Granulocytes # (auto) 0.05 K/uL (0.01-0.20); Immature Granulocytes % (auto) 0.5 %; Lymphocytes # (auto) 1.08 K/uL (1.20-3.40); Mean Corpuscular Hemoglobin 29.9 pg (25.0-34.0); Mean Corpuscular Hgb Conc 32.6 g/dL (32.0-36.0); Mean Corpuscular Volume 91.6 fL (80.0-100.0); Monocytes # (auto) 0.88 K/uL (0.11-0.59); Monocytes % (auto) 8.1 %; Neutrophils # (auto) 8.63 K/uL (1.40-6.50); Neutrophils % (auto) 79.4 %; Platelet Count 191 K/uL (130-400); RDW Coefficient of Variation 14.3 % (11.5-14.5); RDW Standard Deviation 47.9 fL (36.4-46.3); Red Blood Count 4.89 M/uL (4.70-6.10); White Blood Count 10.85 K/ul (4.8-10.8)
[2024-01-04 11:59] LABS: Alanine Aminotransferase 32 U/L (7-52); Albumin Globulin Ratio 1.2 (0.9-2); Albumin Level 3.7 gm/dl (3.4-5.0); Alkaline Phosphatase 61 U/L (34-104); Anion Gap 9 (3-11); Aspartate Aminotransferase 35 U/L (13-39); BUN Creatinine Ratio 14.3 (10-20); Bilirubin,Total 1.7 mg/dl (0.2-1.0); Blood Urea Nitrogen 18 mg/dl (6-23); Calcium 9.5 mg/dl (8.6-10.3); Carbon Dioxide 25 mmol/L (21-32); Chloride 109 mmol/L (98-107); Globulin 3.2 gm/dl (2.5-4.0); Glucose 160 mg/dl (70-99(Fasting)); Potassium 4.5 mmol/L (3.5-5.1); Sodium 143 mmol/L (136-145); Total Protein 6.9 gm/dl (6.0-8.3)
[2024-01-04 12:13] LABS: INR 1.1 (0.9-1.1); Prothrombin Time 11.5 Seconds (9.0-12.0)
[2024-01-04] MEDS: FUROSEMIDE 40 MG/4 ML VIAL IV ONE (12:21)
[2024-01-04 12:24] LABS: Troponin I High Sensitivity 123.5 pg/ml (0-20)
--- NOTE | 2024-01-04 12:47 | History & Physical Report ---
Date of Service January 04, 2024 Assessment & Plan (1) Acute on chronic systolic (congestive) heart failure: Plan: H/o chronic systolic heart failure, presenting with SOB and lower extremity edema, hypervolemic on exam today - Admit - Unsure of baseline weight, states he had increased to sizes x 2 over the past 2 to 3 weeks, admission weight 107.7kg ; Daily standing weights - I+Os - Heart healthy + T2DM - Echo most recently completed 01/2021- pending repeat echo - BNP 576 - CXR with cardiomegaly, pulmonary edema, small bilateral pleural effusions and associated bibasilar opacities - CBC WBC 10.85, neutrophil predominant - CMP bilirubin 1.7 - Troponin 123.5, pending repeat - On ASA 81 mg for Afib, unable to tolerate additional management 2/2 BRBPR - Metoprolol succinate 50 mg + metoprolol 2.5mg IV q4hr prn for HR > 130 - Lasix 60 mg at home, however patient states he has not been taking this - Lasix 60 mg IV BID17 - Not on GDMT- ? ability to afford medications; recommend starting Entresto (2) COPD (chronic obstructive pulmonary disease): Plan: Documented per history; no fever/chills, is having productive cough x 1 week, yellow sputum - ? PNA - CXR cardiomegaly with interstitial pulmonary edema/bibasilar opacities - Labs CBC with leukocytosis, neutrophil predominant; bilirubin 1.7; VBG's WNL; troponin elevated at 123.5, pending repeat; Pro-Arnold pending - Flutter valve + Incentive spirometer - No home O2; O2 prn via NC - Given leukocytosis and symptoms of productive cough with yellow sputum- Rocephin + doxycycline - CBC a.m. (3) Elevated troponin: Plan: No chest pain - Troponin on admission 123.5, pending repeat - EKG without signs of infarct - Likely demand related - EKG as needed for chest pain (4) Atrial fibrillation with RVR: Plan: Previous history of , On aspirin 1 mg, unable to tolerate additional management - EKG on admission showed A-fib rate 110 - telemetry showing rate 100s to 110s, still A-fib - Echo pending - Rate controlled with metoprolol succinate 50 mg--> did not take a.m. and is occasions, will provide this dose x 1 then continue to monitor rate - Continue to monitor on telemetry (5) Hypertension: Plan: States that his blood pressure was 200s over 100s prior to arrival, currently; did not take her medications - Will provide home medications to see if improvement of readings (6) Diabetes mellitus, type II: Plan: States he is never taken metformin, glargine 22 units nightly - Most recent A1C (10/2022) 6.6%, pending repeat - SSI with target BSG range 120-160mg/dL, CF 35, carb ratio 15 - On insulin 22 units nightly - T2DM diet - BSG ACHS - Adjust regimen as needed - Pharm glycemic consult placed (7) Coronary artery disease: Plan: History of CAD - Recent catheterization 07/2018 - Follows with cardiology outpatient (8) BPH (benign prostatic hyperplasia): Plan: No current symptoms - Finasteride 5 mg- continue - UA without signs of infection at this time Plan Dispo: Admit Diet: Heart healthy, DMT2 VTE Prophylaxis: Lovenox Code: Full Admission and Anticipated Discharge Date Admission Date: 01/04/2024 History of Present Illness Chief Complaint: HTN, SOB Primary Care Provider: NO PCP 88-year-old male presenting for elevated blood pressure reading at home, as well as shortness of breath. ED course: CBC with leukocytosis (10.85) neutrophil predominant (8.63), PT/INR WNL; VBG's WNL; CMP chloride 109, glucose 160, bilirubin 1.7; troponin 123.5, pending repeat; BNP 576; UA 1+ protein, 3+ blood, greater than 20 RBC, presence of hyaline cast, no signs of infection; CXR cardiomegaly with pulmonary edema, small bilateral pleural effusions with associated bibasilar opacities; EKG A-fib with RVR (110 bpm), QTc 500; provided with Lasix 40 mg IV in ED. Patient is a 8-year-old male PMHx A-fib, chronic heart failure, HTN, COPD, DMT2, and BPH presenting for elevated blood pressure readings at home as well as ongoing shortness of breath. Patient states that approximately 2 to 3 weeks ago he noted that he was having worsening shortness of breath, and associated productive cough with yellow sputum. States that the shortness of breath is worsened when laying flat, or with exertion. Does not utilize oxygen at home. Is not reporting any fevers or chills or additional known sick contacts. States that he is also noted that he had to buy new shoes because his "feet grew" and would no longer fit in the smaller sizes. Recently changed from size 10 to 12 within the past 3 weeks. States that he does not know if his legs are swollen, but he does not think that they are. Has been utilizing OTC Mucus Relief for cough, no additional medications. Associated constipation that comes and goes. Denies chest pain, palpitations, abdominal pain, nausea/vomiting/diarrhea, numbness/tingling, headache, dizziness, presyncopal episodes, or LUTS. Did not take any a.m. medications. Please see Dr. Gutierrez's attestation for adjustments/additions to treatment plan. Allergies Allergy/AdvReac Type Severity Reaction Status Date / Time Iodinated Contrast Media Allergy Unknown HIVES Verified 08/27/22 10:07 amoxicillin [From Augmentin] Allergy Unknown Verified 08/27/22 10:07 clavulanic acid Allergy Unknown Verified 08/27/22 10:07 [From Augmentin] oxaprozin [From Daypro] Allergy Unknown Verified 08/27/22 10:07 sitagliptin [From Januvia] Allergy Unknown Verified 08/27/22 10:07 Home Medications Medication Instructions Recorded Confirmed Type aspirin 81 mg tablet,delayed 81 mg PO DAILY 06/10/18 01/04/24 History release (Aspir-) blood sugar diagnostic (OneTouch #100 ea 09/05/19 08/27/22 Rx Ultra Blue Test Strip) cholecalciferol (vitamin D3) 50 50 mcg PO DAILY #90 caps 05/07/22 01/04/24 Rx mcg (2,000 unit) capsule pen needle,diabetic dual safty 30 #100 ea 08/27/22 08/27/22 Rx gauge x 3/16" (BD AutoShield Duo Pen Needle) atorvastatin 40 mg tablet 40 mg PO DAILY #90 tabs 10/16/22 01/04/24 Rx furosemide 40 mg tablet 60 mg (1.5 x 40 mg) PO QAM #135 10/16/22 01/04/24 Rx tabs potassium chloride 20 mEq 20 meq PO DAILY #90 tabs 10/16/22 01/04/24 Rx tablet,extended release finasteride 5 mg tablet 5 mg PO DAILY #90 tabs 04/01/23 01/04/24 Rx losartan 25 mg tablet 25 mg PO DAILY #90 tabs 01/01/24 01/04/24 Rx metoprolol succinate 50 mg 50 mg PO DAILY 01/04/24 01/04/24 History tablet,extended release 24 hr Past Med/Surg History Problem List (Updated 01/04/24 @ 13:26 by Ld Bland, DO) Acute exacerbation of CHF (congestive heart failure) (Acute) Skin lesion Cerumen impaction Encounter for preventive care Colon cancer screening Vitamin D deficiency Osteoarthritis Atrial fibrillation Constipation Left ventricular dysfunction Acute on chronic systolic (congestive) heart failure Permanent atrial fibrillation (Chronic) Diagnosed 06/25. Rate controlled with atenolol 100mg daily. Previously AC via rivaroxaban. Discontinued due to BRBPR. Declined EGD/Colonocscopy. Now on ASA 81mg Aortic stenosis (Chronic) Symptomatic, severe, with ORACIO 0.8cm2, mean gradient 35mmHg, Ao V2: 3.6m/s; Awaiting CT surgery evaluation. Followed by cardiology. Acute on chronic CHF exacerbation 06/27 felt to be due to disease. Managed with furosemide 40mg daily PRN to maintain body weight at 255lbs Hypertension (Chronic) Long standing. Managed with atenolol Chronic systolic CHF (congestive heart failure) Hyperlipidemia COPD (chronic obstructive pulmonary disease) BPH (benign prostatic hyperplasia) Managed with finasteride + doxazosin. Followed by urology Diabetes mellitus, type II (Chronic) Controlled, insulin dependent. Managed with glargine 22u QHS + metformin. HbA1c 5.7% (04/27). LBBB (left bundle branch block) (Chronic) Coronary artery disease (Chronic) Catheterization (07/28) 30% left main, sequential 50% stenoses in the mid and distal LAD, and a 30% distal RCA stenosis. CT surgery evaluation pending given severe . Managed with ASA + statin + atenolol. Followed by cardiology. 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 Periodic corticosteroid injections of the knees with Dr. Ruano. Medical History Vitamin B12 deficiency Severe aortic stenosis Dyslipidemia COPD (chronic obstructive pulmonary disease) BPH (benign prostatic hyperplasia) Diabetes Paroxysmal A-fib Qqrak-Cntvaogbj-Nponm (WPW) pattern Surgical History History of testicular surgery enlarged testes H/O Mohs micrographic surgery for skin cancer History of aortic valve replacement Family History Unknown Cancer Unknown Coronary heart disease Brother Patient's brother is Family Health Status Of Brother - Cirrhosis Pancreatic malignant neoplasm Malignant Pancreatic Neoplasm Father Heart disease question of Mother , of "old age" No problems noted. Social History Smoking Status: Never smoker Second Hand Exposure: No; Do You Dip or Chew Tobacco: No; Hx Alcohol Use: No Hx Substance Use: No Preferred Language: Korean Communication Ability: Effective Plastic Roller Required: No Beliefs That Will Affect Care: None marital status: Single Current Living Situation: Other Current Living Situation Comment: in [place] with friend current occupational status: retired current occupation: worked for [employer] Feels Safe at Home: Yes Seatbelt Use: always Assistive Devices: None Review of Systems Review of Systems: All systems reviewed & are unremarkable except as noted in Subjective Physical Exam Physical Exam: General: No acute distress Skin: Warm and dry Head: Normocephalic, atraumatic Eyes: PERRL, conjunctivae clear, sclera non-icteric ENT: External ear and ear canal without swelling, hard of hearing; nose atraumatic; ok dentition Neck: Supple, no LAD Cardio: Tachycardia, irregularly irregular rhythm, no M/G/R, S1 and S2 normal Resp: Lungs CTA in all lobes bilaterally, no wheezes, rales, or rhonchi, decreased breath sounds bilateral bases Abdomen: Soft, symmetric, nontender; No masses or hepatosplenomegaly MSK: No deformities, full ROM throughout; pulses palpable and equal; 1+ lower extremity pitting edema bilaterally. Neuro: Awake, alert; Sensation intact bilaterally; CN intact Psych: Appropriate mood and affect Patient's neighbor is in room at time of visit Results & Data Results & Data Vital Signs (Past 12 Hours) Vital Signs Temp Pulse Resp BP Pulse Ox O2 Del Method 01/04/24 12:43 104 H 01/04/24 11:14 95 Room Air 01/04/24 11:04 36.6 C 108 H 21 133/102 H 94 Room Air Laboratory Results 01/04/24 11:16 WBC 10.85 H RBC 4.89 Hgb 14.6 Hct 44.8 MCV 91.6 MCH 29.9 MCHC 32.6 RDW Std Deviation 47.9 H RDW Coeff of Tyson 14.3 Plt Count 191 MPV 12.0 Immature Gran % (Auto) 0.5 Neut % (Auto) 79.4 Lymph % (Auto) 10.0 [place] % (Auto) 8.1 Eos % (Auto) 1.4 Baso % (Auto) 0.6 Neut # (Auto) 8.63 H Lymph # (Auto) 1.08 L [place] # (Auto) 0.88 H Eos # (Auto) 0.15 Baso # (Auto) 0.06 Immature Gran # (Auto) 0.05 PT 11.5 INR 1.1 VBG pH 7.40 VBG pCO2 38 VBG pO2 40 VBG HCO3 24 VBG O2 Saturation 68.8 VBG Base Excess -1.1 Sodium 143 Potassium 4.5 Chloride 109 H Carbon Dioxide 25 Anion Gap 9 BUN 18 Creatinine 1.26 Est Cr Clr Drug Dosing Not Reportable eGFR 55.20 BUN/Creatinine Ratio 14.3 Glucose 160 H Calcium 9.5 Total Bilirubin 1.7 H AST 35 ALT 32 Alkaline Phosphatase 61 Troponin I High Sens 123.5 H* B-Natriuretic Peptide 576 H Total Protein 6.9 Albumin 3.7 Globulin 3.2 Albumin/Globulin Ratio 1.2 Diagnostic Findings Chest X-Ray 01/04/24 11:14 XR chest 1V portable CLINICAL HISTORY: Dyspnea COMPARISON STUDY: Chest radiograph July 28, 2019. Chest CT July 29, 2019. FINDINGS: A nonunited proximal right humeral fracture is incidentally noted. There is no pneumothorax. There are small bilateral pleural effusions. Cardiomegaly is unchanged. There is mild pulmonary edema. Hazy bibasilar opacities are present. IMPRESSION: Cardiomegaly with interstitial pulmonary edema and small bilateral pleural effusions with associated bibasilar opacities. ACT 112: Negative or not required by law. Electronically signed by: Krish Wilkinson M.D. 01/04/2024 11:43 AM Code Status & VTE Plan Code Status Full Supervising Physician Co-Signing Physician Notes Patient seen and examined, chart reviewed, case discussed with Dell Dan PA-C and I agree with the assessment and plan as above except as otherwise noted Labs and images reviewed Martin is a 88-year-old male with a past medical history of diastolic CHF, bovine prosthetic aortic valve, A-fib who presents with CHF Per signout/review patient has had progressive 2 weeks of shortness of breath without chest pain. Increased work of breathing with even short amounts of ambulation. Hypertensive on arrival, tachycardic. Chest x-ray shows interstitial pulmonary edema and bilateral pleural effusions considered CHF. Leukocytosis mild at 10.85 and without any left shift. VBG 7 point /40/24. BNP is elevated at 576, troponin is elevated at 123. EKG shows A-fib with RVR 110 and aspect of left bundle branch block. EKG was compared to 07/2019 which did show A-fib with a left bundle branch block at that time; overall morphology similar to prior. No chest pain at time of admission. Patient is recommended for acute on chronic CHF Patient endorses is he has not been taking his Lasix recently. Does not watch his salt intake. Has had progressive shortness of breath for the last 2 weeks and now has difficulty walking even a few feet due to dyspnea. Denies chest pain about the Acute on chronic CHFrEF Patient is not overtly hypoxic but is with exercise intolerance and significant dyspnea on any exertion He is overtly volume overloaded. Chest x-ray with pulmonary edema. BNP is elevated. TTE 01/2021: EF 35%, bioprosthetic valve well-seated Strict ins and outs Review of recent weights with dry weight of around 100-104 kg. Patient is 107.7 kg on admission. Daily standing weights - Last Echo with EF <40% and NYHA II-III sx Patient should be considered for Entresto, SGLT2 and if BP/renal function/potassium are tolerant and then eventually spironolactone due to his severe reduced ejection fraction and NYHA class. There are financial concerns for coverage of these however. Will consult case management, and hold losartan. If Entresto is able to be covered then hold all THOMAS/ARB treatment for 36 hours and then can initiate Entresto. If covered can start SGLT2 on discharge and then reevaluate is at outpatient for spironolactone. If these are not financially feasible then will resume losartan and continue current treatment Updated echo is pending ?PNA -Patient increased dark sputum production with an increasing cough. Differential is from fluid overload however also has a leukocytosis. Will cover with Rocephin/Doxy on admission. Pro-Arnold ordered, fever curve trended, leukocytosis pended Atrial fibrillation with RVR Suspect RVR is provoked with substantial volume overload. No hemodynamic compromise and rates are less than 130 on admission. Will treat with diuresis and keep metoprolol IV on-call as needed Patient has had recess benefit discussion regarding anticoagulation in the past. Has started on shared decision making with prior providers that he would not like to be anticoagulated spite risk of strokes due to recurrent hematuria. Anticoagulation deferred Care concerns On arrival patient in close with with strong odor of urine/ammonia. Concern for patient's ability to care for self at home and support resources. Case management consulted as above and are following Agree with above. PG Care Time/CCT Total # of Minutes Spent Total Time Spent with Patient: Total time spent is greater than 50% in coordination of care (as documented) at patient's floor/unit and/or counseling patient: Coding Level of Care Code 63610 INT INP/OBS CARE 3/75MIN Diagnoses Acute on chronic systolic (congestive) heart failure I50.23 Chronic obstructive pulmonary disease, unspecified COPD type J44.9 COPD type: unspecified COPD Elevated troponin R74.8 Atrial fibrillation with RVR I48.91 Hypertension I10 Hypertension type: unspecified Type 2 diabetes mellitus without complication, with long-term current use of insulin E11.9; Z79.4 Diabetes mellitus complication status: without complication Diabetes mellitus rn long term care insulin use: with fdc use Coronary artery disease I25.119 Associated angina: with unspecified angina Coronary Disease-Associated Artery/Lesion type: unspecified vessel or lesion type [place] vs. transplanted heart: unspecified whether [place] or transplanted heart Benign prostatic hyperplasia without lower urinary tract symptoms N40.0 Lower urinary tract symptom presence: symptoms absent Time Spent (min) 80 (2) COPD (chronic obstructive pulmonary disease) COPD type: unspecified COPD Qualified Code(s): J44.9 - Chronic obstructive pulmonary disease, unspecified (5) Hypertension Hypertension type: unspecified Qualified Code(s): I10 - Essential (primary) hypertension (6) Diabetes mellitus, type II Diabetes mellitus complication status: without complication Diabetes mellitus rn long term care insulin use: with rn long term care use Qualified Code(s): E11.9 - Type 2 diabetes mellitus without complications; Z79.4 - termite inspector (current) use of insulin (7) Coronary artery disease Associated angina: with unspecified angina Coronary Disease-Associated Artery/Lesion type: unspecified vessel or lesion type [place] vs. transplanted heart: unspecified whether [place] or transplanted heart Qualified Code(s): I25.119 - Atherosclerotic heart disease of [place] coronary artery with unspecified angina pectoris (8) BPH (benign prostatic hyperplasia) Lower urinary tract symptom presence: symptoms absent Qualified Code(s): N40.0 - Benign prostatic hyperplasia without lower urinary tract symptoms
[2024-01-04 13:16] LABS: Appearance Urine Clear (Clear); Bacteria Urine Automated None Seen (None Seen); Bilirubin Urine Negative (Negative); Blood Urine 3+ (Negative); Color Urine Yellow; Epithelial Cell Urine Auto 0-2 /hpf (0-2); Glucose Urine UA Negative (Negative); Ketones Urine Negative (Negative); Leukocyte Esterase Urine Negative (Negative); Nitrite Urine Negative (Negative); Protein Urine 1+ (Negative); RBC Urine Automated >20 /hpf (0-2); Specific Gravity Urine 1.014 (1.000-1.030); Urobilinogen Urine Negative (Negative); WBC Urine Automated 0-5 /hpf (0-5)
[2024-01-04] MEDS: cefTRIAXone SODIUM 2,000 MG/50 ML BAG IV SCH (14:18)
[2024-01-04] MEDS: METOPROLOL SUCC 50MG EXT REL TAB PO STA (14:42)
--- NOTE | 2024-01-04 15:56 | Electrocardiogram Report ---
Test Reason : Blood Pressure : */* mmHG Vent. Rate : 110 BPM Atrial Rate : * BPM P-R Int : * ms QRS Dur : 136 ms QT Int : 370 ms P-R-T Axes : * 97 -57 degrees QTcB Int : 500 ms Atrial fibrillation with rapid ventricular response Rightward axis Non-specific intra-ventricular conduction block Abnormal ECG When compared with ECG of 28-Jul-2019 14:09, Criteria for Anterolateral infarct are no longer Present Confirmed by Nitin Wilson ([id number]) on 01/04/2024 3:55:45 PM Referred By: REFERRED SELF Confirmed By: Nitin Wilson
[2024-01-04] MEDS ORDERED: CARBOHYDRATES FOR HYPOGLYCEMIA PO PRN ×2 (16:23→17:08)
[2024-01-04] MEDS ORDERED: GLUCOSE 40% GEL 15 GM TUBE PO PRN ×2 (16:23→17:08)
[2024-01-04] MEDS ORDERED: DEXTROSE 50% 50 ML SYRINGE IV PRN ×2 (16:23→17:08)
[2024-01-04] MEDS ORDERED: GLUCAGON FOR INJ 1 MG VIAL SQ PRN ×2 (16:23→17:08)
[2024-01-04] MEDS ORDERED: PHARMACY GLYCEMIC MGMT CONSULT PRN ×2 (16:23→17:08)
[2024-01-04] MEDS ORDERED: METOPROLOL TARTRATE 1 MG/ML VIAL IV PRN (16:23)
[2024-01-04] MEDS ORDERED: GLUCOSE 10 TAB/TUBE PO PRN ×2 (16:23→17:08)
[2024-01-04] MEDS ORDERED: METOPROLOL TARTRATE 1 MG/ML VIAL IV SCH (16:23)
[2024-01-04] MEDS: ASPIRIN 81 MG ECTAB PO SCH (17:07)
[2024-01-04] MEDS: ENOXAPARIN INJ 40 MG/0.4 ML SYR SQ SCH (17:08)
[2024-01-04] MEDS: FUROSEMIDE 40 MG/4 ML VIAL IV SCH (17:08)
[2024-01-04] MEDS: INSULIN ASPART PER UNIT CHARGE SC SCH (17:52)
--- NOTE | 2024-01-04 18:24 | XCELERA ---
[id number]
--- NOTE | 2024-01-04 19:05 | Pharmacy Report ---
Pharmacy Glycemic Short Note 2 - Date of Service January 04, 2024 - Glycemic Short BSG Results (Last 24 hours): 01/04/24 01/04/24 11:16 17:21 Glucose 160 H POC Glucose 133 H OUTPATIENT ANTIDIABETIC REGIMEN: * NA ASSESSMENT: * PLAN FOR INPATIENT GLYCEMIC CONTROL: * Hold outpatient oral diabetes medications * Basal insulin * Lantus * Bolus insulin * NovoLog per scale ACHS or Q6hrs while NPO * Goal Range: Low 110 mg/dL - High 140 mg/dL * Correction Factor: 35 mg/dL/unit * Nutritional / Prandial insulin per carb ratio of 1 unit per 13 grams CHO consumed
[2024-01-04] MEDS: DOXYCYCLINE HYCLATE 100 MG CAP PO SCH (20:42)
[2024-01-04] MEDS ORDERED: LANTUS PER UNIT CHARGE SQ SCH (21:00)
[2024-01-04] MEDS ORDERED: INSULIN ASPART PER UNIT CHARGE SC SCH (21:00)
[2024-01-05 07:13] LABS: Hematocrit (blood only) 42.9 % (42.0-52.0); Hemoglobin 13.9 g/dl (14.0-18.0); Mean Corpuscular Hemoglobin 29.5 pg (25.0-34.0); Mean Corpuscular Hgb Conc 32.4 g/dL (32.0-36.0); Mean Corpuscular Volume 91.1 fL (80.0-100.0); Mean Platelet Volume 11.9 fL (9.4-12.4); Platelet Count 177 K/uL (130-400); RDW Coefficient of Variation 14.3 % (11.5-14.5); RDW Standard Deviation 47.6 fL (36.4-46.3); Red Blood Count 4.71 M/uL (4.70-6.10); White Blood Count 9.52 K/ul (4.8-10.8)
[2024-01-05 07:49] LABS: Estimated Average Glucose 137 mg/dl; Hemoglobin A1C 6.4 % (4.5-5.6)
[2024-01-05 09:36] LABS: Calcium 9.4 mg/dl (8.6-10.3); Creatinine Clr Calc Pharmacy 47.7 ml/min; Potassium 4.4 mmol/L (3.5-5.1)
[2024-01-05] MEDS: FUROSEMIDE 40 MG/4 ML VIAL IV SCH (09:38)
[2024-01-05] MEDS: POTASSIUM CHLORIDE CRTAB 20 MEQ TABCR PO SCH (09:38)
[2024-01-05] MEDS: METOPROLOL SUCC 50MG EXT REL TAB PO SCH (09:39)
[2024-01-05] MEDS: FINASTERIDE 5 MG TAB PO SCH (09:39)
--- NOTE | 2024-01-05 11:48 | Hospitalist Progress Note ---
Date of Service January 05, 2024 Assessment & Plan (1) Acute on chronic systolic (congestive) heart failure: (2) COPD (chronic obstructive pulmonary disease): (3) Elevated troponin: (4) Atrial fibrillation with RVR: (5) Hypertension: (6) Diabetes mellitus, type II: (7) Coronary artery disease: (8) BPH (benign prostatic hyperplasia): Plan 88-year-old male with past medical history of hypertension, coronary artery disease, type 2 diabetes mellitus, chronic systolic congestive heart failure with reduced ejection fraction, atrial fibrillation not on anticoagulation, aortic valve disease status post TAVR BPH, CKD stage III who presents to the hospital with elevated blood pressure readings and shortness of breath ongoing for approximately 3 weeks. #Acute on chronic systolic congestive heart failure with reduced ejection fraction of 20% #Coronary artery disease (sequential 50% LAD stenosis in July 2018) #Permanent atrial fibrillation (patient has refused anticoagulation) #Aortic valve disease status post TAVR in November 2018 #Essential hypertension #Hyperlipidemia #Elevated troponin, likely type II [place] in setting of demand ischemia from CHF exacerbation Outpatient integration project manager is Dr. Keegan Morris Echo from 01/04/2024 shows left ventricular systolic function is severely reduced with EF of 20%, there is mild concentric LVH, there is a bioprosthetic aortic valve, mild to moderate aortic regurgitation, moderate mitral regurgitation and also severe global hypokinesis of left ventricle noted It appears patient has not really been on Lasix for some time Last cardiology visit note is from 09/19/2021: As per cardiology notes, patient has declined being on anticoagulation Continue aspirin plus statin Continue diuresis with Lasix 40 mg IV twice daily I/O monitoring Daily weights Continue Toprol-XL 50 mg daily EF is dropped from 35 to 20% Left ventricular shows severe global hypokinesis, with elevated troponin, no chest pain suspect this might be type II [place] in setting of demand ischemia: Will get cardiology consult and await cardiology recommendations Patient will benefit from GDMT: Await cardiology consult and recommendations #Suspected pneumonia versus acute bronchitis #COPD Patient's respiratory symptoms have improved after diuresis IV Lasix White count has improved, procalcitonin is less than 0.02 Continue ceftriaxone plus doxycycline for now Check repeat two-view chest x-ray to assess for any evidence of infiltrates #Type 2 diabetes mellitus Patient states he is not on insulin at home A1c 6.4 Diabetic diet Pharmacy managing glycemic control #CKD stage III Renal function is at baseline Monitor renal function and electrolyte specially since patient is on IV Lasix Avoid nephrotoxic agents including NSAIDs #BPH Continue finasteride 5 mg daily Urine analysis without any signs of infection Patient without any symptoms at this point CODE STATUS: Discussed with patient in great length, he wishes to be DNR/DNI. He does not want CPR and does not want intubation or mechanical ventilation. Patient has decisional making capacity DVT prophylaxis: Heparin subcutaneous twice daily PT/OT consults for discharge planning Care plan discussed with patient, nursing staff Admission and Anticipated Discharge Date Admission Date: January 04, 2024 Subjective Patient seen and examined H&P reviewed Labs reviewed EKG reviewed Radiology reviewed Patient states he feels much better with improvement in his leg edema and shortness of breath. He denies any chest pain. Patient states he never had any chest pain. Denies any cough, fever or chills. Patient states he does not recall ever being on furosemide. It appears patient has not taken furosemide in a while. He tells me that he is not on insulin and he only uses pills at home. Patient is awake and alert but confused about what medications he supposed to take. Patient states his symptoms have been ongoing for past 3 to 4 weeks and shortness of breath and edema were worsening. Social history: Patient lives by himself. He uses a walker at home. Patient tells me he has no family alive. He denies tobacco use and alcohol use Physical Exam Physical Exam: General: No acute distress Psych: Awake and alert HEENT: Anicteric sclera, moist oral mucosa CVS: Regular rate and rhythm Lungs: Bilateral air entry decreased breath sounds at bases, no wheezing noted Abdomen: Soft, nontender, no rebound, no guarding Ext: Pitting lower extremity edema, no calf tenderness Neuro: No focal motor deficits noted Results & Data Results & Data Vital Signs (Past 12 Hours) Vital Signs Temp Pulse Pulse Resp BP Pulse Ox O2 Del Method 01/05/24 11:21 36.4 C L 96 H 18 146/92 H 93 Room Air 01/05/24 08:10 36.7 C 74 18 163/83 H 97 Room Air 01/05/24 07:28 82 01/05/24 04:00 36.3 C L 86 16 127/78 93 Room Air 01/05/24 00:12 36.7 C 97 H 16 145/92 H 95 Room Air Laboratory Results Laboratory Results - last 24 hr 01/04/24 01/04/24 01/04/24 11:16 13:00 13:15 WBC RBC Hgb Hct MCV MCH MCHC RDW Std Deviation RDW Coeff of Tyson Plt Count MPV PT 11.5 INR 1.1 Sodium 143 Potassium 4.5 Chloride 109 H Carbon Dioxide 25 Anion Gap 9 BUN 18 Creatinine 1.26 Est Cr Clr Drug Dosing Not Reportable eGFR 55.20 BUN/Creatinine Ratio 14.3 Glucose 160 H POC Glucose Estimat Average Glucose Hemoglobin A1c Calcium 9.5 Total Bilirubin 1.7 H AST 35 ALT 32 Alkaline Phosphatase 61 Troponin I High Sens 123.5 H* 125.8 H* B-Natriuretic Peptide 576 H Total Protein 6.9 Albumin 3.7 Globulin 3.2 Albumin/Globulin Ratio 1.2 Procalcitonin Urine Color Yellow Urine Appearance Clear Urine pH 6.0 Ur Specific [place] 1.014 Urine Protein 1+ H Urine Glucose (UA) Negative Urine Ketones Negative Urine Blood 3+ H Urine Nitrite Negative Urine Bilirubin Negative Urine Urobilinogen Negative Ur Leukocyte Esterase Negative Urine WBC (Auto) 0-5 Urine RBC (Auto) >20 H U Hyaline Cast (Auto) 3-5 H U Epithel Cells (Auto) 0-2 Urine Bacteria (Auto) None Seen 01/04/24 01/04/24 01/04/24 13:31 17:21 20:31 WBC RBC Hgb Hct MCV MCH MCHC RDW Std Deviation RDW Coeff of [place] Plt Count MPV PT INR Sodium Potassium Chloride Carbon Dioxide Anion Gap BUN Creatinine Est Cr Clr Drug Dosing eGFR BUN/Creatinine Ratio Glucose POC Glucose 133 H 120 H Estimat Average Glucose Hemoglobin A1c Calcium Total Bilirubin AST ALT Alkaline Phosphatase Troponin I High Sens B-Natriuretic Peptide Total Protein Albumin Globulin Albumin/Globulin Ratio Procalcitonin < 0.02 Urine Color Urine Appearance Urine pH Ur Specific [place] Urine Protein Urine Glucose (UA) Urine Ketones Urine Blood Urine Nitrite Urine Bilirubin Urine Urobilinogen Ur Leukocyte Esterase Urine WBC (Auto) Urine RBC (Auto) U Hyaline Cast (Auto) U Epithel Cells (Auto) Urine Bacteria (Auto) 01/05/24 01/05/24 01/05/24 06:48 06:51 08:05 WBC 9.52 RBC 4.71 Hgb 13.9 L Hct 42.9 MCV 91.1 MCH 29.5 MCHC 32.4 RDW Std Deviation 47.6 H RDW Coeff of [place] 14.3 Plt Count 177 MPV 11.9 PT INR Sodium 142 Potassium 4.4 Chloride 104 Carbon Dioxide 30 Anion Gap 8 BUN 20 Creatinine 1.25 Est Cr Clr Drug Dosing 47.7 eGFR 55.73 BUN/Creatinine Ratio 16.0 Glucose 108 H POC Glucose 105 H Estimat Average Glucose 137 Hemoglobin A1c 6.4 H Calcium 9.4 Total Bilirubin AST ALT Alkaline Phosphatase Troponin I High Sens B-Natriuretic Peptide Total Protein Albumin Globulin Albumin/Globulin Ratio Procalcitonin Urine Color Urine Appearance Urine pH Ur Specific [place] Urine Protein Urine Glucose (UA) Urine Ketones Urine Blood Urine Nitrite Urine Bilirubin Urine Urobilinogen Ur Leukocyte Esterase Urine WBC (Auto) Urine RBC (Auto) U Hyaline Cast (Auto) U Epithel Cells (Auto) Urine Bacteria (Auto) Diagnostic Findings Chest X-Ray 01/04/24 11:14 XR chest 1V portable CLINICAL HISTORY: Dyspnea COMPARISON STUDY: Chest radiograph July 28, 2019. Chest CT July 29, 2019. FINDINGS: A nonunited proximal right humeral fracture is incidentally noted. There is no pneumothorax. There are small bilateral pleural effusions. Cardiomegaly is unchanged. There is mild pulmonary edema. Hazy bibasilar opacities are present. IMPRESSION: Cardiomegaly with interstitial pulmonary edema and small bilateral pleural effusions with associated bibasilar opacities. ACT 112: Negative or not required by law. Electronically signed by: Krish Wilkinson M.D. 01/04/2024 11:43 AM PG Care Time/CCT Total # of Minutes Spent Total Time Spent with Patient: Total time spent is greater than 50% in coordination of care (as documented) at patient's floor/unit and/or counseling patient: Coding Level of Care Code 58189 SUB INP/OBS CARE 3/50MIN Diagnoses Acute on chronic systolic (congestive) heart failure I50.23 Chronic obstructive pulmonary disease, unspecified COPD type J44.9 COPD type: unspecified COPD Elevated troponin R74.8 Atrial fibrillation with RVR I48.91 Hypertension I10 Hypertension type: unspecified Type 2 diabetes mellitus without complication, with long-term current use of insulin E11.9; Z79.4 Diabetes mellitus jail insulin use: with termite control service representative use Diabetes mellitus complication status: without complication Coronary artery disease I25.119 Associated angina: with unspecified angina Coronary Disease-Associated Artery/Lesion type: unspecified vessel or lesion type [place] vs. transplanted heart: unspecified whether [place] or transplanted heart Benign prostatic hyperplasia without lower urinary tract symptoms N40.0 Lower urinary tract symptom presence: symptoms absent (2) COPD (chronic obstructive pulmonary disease) COPD type: unspecified COPD Qualified Code(s): J44.9 - Chronic obstructive pulmonary disease, unspecified (5) Hypertension Hypertension type: unspecified Qualified Code(s): I10 - Essential (primary) hypertension (6) Diabetes mellitus, type II Diabetes mellitus jail insulin use: with termite control service representative use Diabetes mellitus complication status: without complication Qualified Code(s): E11.9 - Type 2 diabetes mellitus without complications; Z79.4 - senior care (current) use of insulin (7) Coronary artery disease Associated angina: with unspecified angina Coronary Disease-Associated Artery/Lesion type: unspecified vessel or lesion type [place] vs. transplanted heart: unspecified whether [place] or transplanted heart Qualified Code(s): I25.119 - Atherosclerotic heart disease of [place] coronary artery with unspecified angina pectoris (8) BPH (benign prostatic hyperplasia) Lower urinary tract symptom presence: symptoms absent Qualified Code(s): N40.0 - Benign prostatic hyperplasia without lower urinary tract symptoms
--- NOTE | 2024-01-05 12:11 | Pharmacy Report ---
Pharmacy Glycemic Short Note 2 - Date of Service January 05, 2024 - Glycemic Short BSG Results (Last 24 hours): 01/04/24 01/04/24 01/05/24 17:21 20:31 06:51 Glucose 108 H POC Glucose 133 H 120 H 01/05/24 01/05/24 08:05 11:54 Glucose POC Glucose 105 H 139 H OUTPATIENT ANTIDIABETIC REGIMEN: * Was previously on Lantus and metformin but not any more s/t possible noncompliance/financial reasons * A1c 6.4% resulted today. ASSESSMENT: * OJ is a 88 yo M presenting with SOB. Patient has a hx of DM2 but not taking anything currently outpatient. * BSGs relatively well controlled, ranging from 105 to 160 since admission. * Will go with just NovoLog for now with stress factor of 1 PLAN FOR INPATIENT GLYCEMIC CONTROL: * Hold outpatient oral diabetes medications * Basal insulin * No Lantus for now * Bolus insulin * NovoLog per scale ACHS or Q6hrs while NPO * Goal Range: Low 110 mg/dL - High 140 mg/dL * Correction Factor: 35 mg/dL/unit * Nutritional / Prandial insulin per carb ratio of 1 unit per 13 grams CHO consumed
[2024-01-05] MEDS: ATORVASTATIN 40 MG TAB PO SCH (12:51)
--- NOTE | 2024-01-05 15:37 | XRay Report ---
EXAM: Radiographs of the Chest 2 Views INDICATION: Shortness of breath. TECHNIQUE: Frontal and lateral views of the chest. COMPARISON: 07/29/2019 FINDINGS: Lungs and pleural spaces: Symmetrical pulmonary vascular congestion noted. Probable trace pleural effusions. Small infiltrate likely in the left base. No pneumothorax. Heart: Stable cardiomegaly. Mediastinum: Normal contour. Bones/joints: No fracture, erosion or dislocation. IMPRESSION: Probable CHF. Component of left basilar pneumonia not excluded. ACT 112: Negative or not required by law. Electronically signed by Love Jamison 01-05-2024 3:36 PM
--- NOTE | 2024-01-05 18:10 | Cardiology Consultation ---
Date of Consultation January 05, 2024 Assessment & Plan (1) Acute exacerbation of CHF (congestive heart failure): (2) Atrial fibrillation: (3) Aortic stenosis: (4) Coronary artery disease: (5) Nonischemic cardiomyopathy: (6) Mitral regurgitation: (7) Pulmonary hypertension: Plan 1. Acute decompensated left ventricular systolic failure: Possibly due to medication noncompliance. He reports running out of medicines recently. This may resulted in worsening edema and even hypertension which could have exacerbated his LV dysfunction. He had classic symptoms of pulmonary vascular congestion. He seems to be improving on diuresis. Renal function is stable. Will continue his current dose of Lasix. 2. Nonischemic cardiomyopathy: Severe. Outpatient medical regimen includes metoprolol succinate, losartan and furosemide. He would likely benefit from a change to Entresto and the addition of an SGLT2 antagonist. His degree of LV dysfunction is also in the range of patients who are generally advised to consider an ICD. However, recent studies have suggested there may be little benefit to the patient advanced in age on appropriate medical therapy. I did mention this to the patient today and he will consider the option. 3. Left bundle branch block: No higher degree AV block. No symptoms of bradycardia. However, if he were to have an interest in a defibrillator a biventricular device would be appropriate in order to provide some resynchronization. This has the potential to improve LV function, reduce mortality and prevent hospitalizations. In the setting of permanent atrial fibrillation the benefit is attenuated. 4. Atrial fibrillation: Permanent. Adequate rate control. Not currently on systemic anticoagulation due to patient concerns about bleeding. I did mention the option again to the patient today and he will consider the option. We reviewed the risks of stroke associated with atrial fibrillation 5. Aortic stenosis: Normal gradient across the bioprosthetic aortic valve. Mild to moderate aortic regurgitation. This can be followed over time. 6. Mitral regurgitation: Moderate. 7. Pulmonary hypertension: Due to combination of decompensated heart failure and likely pickwickian syndrome. Will continue to treat his cardiomyopathy and provide diuresis as needed. History of Present Illness Reason for Consultation: Congestive heart failure Requesting Physician: Leisa Attending Physician: Anthony De La Fuente MD History of Present Illness The patient is an 88-year-old gentleman with an extensive cardiac history to include nonischemic cardiomyopathy, nonobstructive coronary disease, permanent atrial fibrillation, aortic stenosis status post TAVR in 2019 and a left bundle branch block who presented to the hospital with symptoms of dyspnea. Patient states that for a few days leading up to his admission he was having worsening breathing difficulty and eventually developed orthopnea and paroxysmal nocturnal dyspnea. He also noted some lower extremity edema. He did not endorse symptoms of chest discomfort. He was not aware of any palpitations. He denied dizziness or lightheadedness or any history of syncope. He denies any dietary noncompliance but apparently did run out of some medications over the past week. Since his admission he underwent a significant diuresis and his breathing trouble has improved. He does not report being entirely back to baseline, but was able to ambulate today with a walker without dyspnea or chest pain. No significant dyspnea at rest. Allergies Allergy/AdvReac Type Severity Reaction Status Date / Time Iodinated Contrast Media Allergy Unknown HIVES Verified 08/27/22 10:07 amoxicillin [From Augmentin] Allergy Unknown Verified 08/27/22 10:07 clavulanic acid Allergy Unknown Verified 08/27/22 10:07 [From Augmentin] oxaprozin [From Daypro] Allergy Unknown Verified 08/27/22 10:07 sitagliptin [From Januvia] Allergy Unknown Verified 08/27/22 10:07 Home Medications Medication Instructions Recorded Confirmed Type aspirin 81 mg tablet,delayed 81 mg PO DAILY 06/10/18 01/04/24 History release (Aspir-) blood sugar diagnostic (OneTouch #100 ea 09/05/19 08/27/22 Rx Ultra Blue Test Strip) cholecalciferol (vitamin D3) 50 50 mcg PO DAILY #90 caps 05/07/22 01/04/24 Rx mcg (2,000 unit) capsule pen needle,diabetic dual safty 30 #100 ea 08/27/22 08/27/22 Rx gauge x 3/16" (BD AutoShield Duo Pen Needle) atorvastatin 40 mg tablet 40 mg PO DAILY #90 tabs 10/16/22 01/04/24 Rx furosemide 40 mg tablet 60 mg (1.5 x 40 mg) PO QAM #135 10/16/22 01/04/24 Rx tabs potassium chloride 20 mEq 20 meq PO DAILY #90 tabs 10/16/22 01/04/24 Rx tablet,extended release finasteride 5 mg tablet 5 mg PO DAILY #90 tabs 04/01/23 01/04/24 Rx losartan 25 mg tablet 25 mg PO DAILY #90 tabs 01/01/24 01/04/24 Rx metoprolol succinate 50 mg 50 mg PO DAILY 01/04/24 01/04/24 History tablet,extended release 24 hr Patient History Medical History (Updated 01/05/24 @ 18:05 by Nitin Wilson MD) Vitamin B12 deficiency Severe aortic stenosis Dyslipidemia COPD (chronic obstructive pulmonary disease) BPH (benign prostatic hyperplasia) Diabetes Paroxysmal A-fib Uprzg-Dsgnefflx-Fyzap (WPW) pattern Surgical History History of testicular surgery enlarged testes H/O Mohs micrographic surgery for skin cancer History of aortic valve replacement Family History Unknown Cancer Unknown Coronary heart disease Brother Patient's brother is Family Health Status Of Brother - Cirrhosis Pancreatic malignant neoplasm Malignant Pancreatic Neoplasm Father Heart disease question of Mother , of "old age" No problems noted. Social History Smoking Status: Never smoker Second Hand Exposure: No; Do You Dip or Chew Tobacco: No; Hx Alcohol Use: No Hx Substance Use: No Preferred Language: [place]ian Communication Ability: Effective Staff Psychologist Required: No Beliefs That Will Affect Care: None marital status: Single Current Living Situation: Alone Current Living Situation Comment: [place] current occupational status: retired current occupation: worked for [employer] Other Information That Helps Us Care for You: No Feels Safe at Home: Yes Safety Concerns: Feels Safe At This Time Seatbelt Use: always Assistive Devices: Cane and Walker Review of Systems Review of Systems: Per HPI Physical Exam Physical Exam: The patient is alert and oriented. Mood and affect appeared normal. He answered all questions appropriately. Morbidly obese HEENT: Pupils are equal and reactive to light and accommodation. Extraocular movements are intact. The sclerae are anicteric. Neuro: Cranial nerves intact Lungs: Clear to auscultation bilaterally. He has good air movement without use of accessory muscles. No rales wheezes or rhonchi. Cardiac: Heart demonstrates an irregular rhythm but normal rate. Normal S1 and S2. No murmurs on examination. Pulses: The patient has palpable radial pulses bilaterally that are equal in intensity Extremities: There was no evidence of hypoperfusion. There is no cyanosis or clubbing. Minimal lower extremity edema Skin: I did not appreciate any rashes on examination today. Results & Data Vital Signs (Past 12 Hours) Vital Signs Temp Pulse Pulse Resp BP Pulse Ox O2 Del Method 01/05/24 15:13 36.5 C 106 H 20 137/88 95 Room Air 01/05/24 14:43 80 01/05/24 11:21 36.4 C L 96 H 18 146/92 H 93 Room Air 01/05/24 08:10 36.7 C 74 18 163/83 H 97 Room Air 01/05/24 07:28 82 Laboratory Results Abnormal Lab Results 01/04/24 01/05/24 01/05/24 20:31 06:48 06:51 WBC 9.52 RBC 4.71 Hgb 13.9 L Hct 42.9 MCV 91.1 MCH 29.5 MCHC 32.4 RDW Std Deviation 47.6 H RDW Coeff of [place] 14.3 Plt Count 177 MPV 11.9 Sodium 142 Potassium 4.4 Chloride 104 Carbon Dioxide 30 Anion Gap 8 BUN 20 Creatinine 1.25 Est Cr Clr Drug Dosing 47.7 eGFR 55.73 BUN/Creatinine Ratio 16.0 Glucose 108 H POC Glucose 120 H Estimat Average Glucose 137 Hemoglobin A1c 6.4 H Calcium 9.4 01/05/24 01/05/24 01/05/24 08:05 11:54 17:04 WBC RBC Hgb Hct MCV MCH MCHC RDW Std Deviation RDW Coeff of [place] Plt Count MPV Sodium Potassium Chloride Carbon Dioxide Anion Gap BUN Creatinine Est Cr Clr Drug Dosing eGFR BUN/Creatinine Ratio Glucose POC Glucose 105 H 139 H 116 H Estimat Average Glucose Hemoglobin A1c Calcium Diagnostic Findings Echocardiogram 01/04/2024: Severely reduced LV systolic function with ejection fraction 2024%. Mildly dilated left ventricle. Mild LVH. Mild to moderate aortic regurgitation with normal transvalvular gradient. Moderate mitral regurgitation. Elevated pulmonary pressures at greater than 60 mmHg. Chest x-ray obtained 01/04/2024: Cardiomegaly with interstitial pulmonary edema and small bilateral pleural effusions. ECG Additional Comments: EKG obtained at the time admission revealed atrial fibrillation with left bundle branch block PG Care Time/CCT Total # of Minutes Spent Total Time Spent with Patient: Total time spent is greater than 50% in coordination of care (as documented) at patient's floor/unit and/or counseling patient: Coding Level of Care Code 73303 INT INP/OBS CARE MIN Diagnoses Acute exacerbation of CHF (congestive heart failure) I50.9 Atrial fibrillation I48.91 Aortic stenosis I35.0 Cardiac valve disease etiology: etiology unspecified Coronary artery disease I25.119 Associated angina: with unspecified angina Coronary Disease-Associated Artery/Lesion type: unspecified vessel or lesion type [place] vs. transplanted heart: unspecified whether [place] or transplanted heart Nonischemic cardiomyopathy I42.8 Mitral regurgitation I34.0 Pulmonary hypertension I27.20 (3) Aortic stenosis Cardiac valve disease etiology: etiology unspecified Qualified Code(s): I35.0 - Nonrheumatic aortic (valve) stenosis (4) Coronary artery disease Associated angina: with unspecified angina Coronary Disease-Associated Artery/Lesion type: unspecified vessel or lesion type [place] vs. transplanted heart: unspecified whether [place] or transplanted heart Qualified Code(s): I25.119 - Atherosclerotic heart disease of [place] coronary artery with unspecified angina pectoris
[2024-01-05] MEDS: VALSARTAN/SACUBITRIL 26/24MG TAB PO SCH (20:06)
[2024-01-05] MEDS: HEPARIN SOD 5,000 UNIT/0.5 ML VIAL SQ SCH (20:09)
[2024-01-05] MEDS: NYSTATIN POWDER 15GM BTL EXT PRN (21:32)
[2024-01-06 07:30] LABS: Hematocrit (blood only) 46.1 % (42.0-52.0); Hemoglobin 15.2 g/dl (14.0-18.0); Mean Corpuscular Hemoglobin 29.7 pg (25.0-34.0); Mean Platelet Volume 11.7 fL (9.4-12.4); Platelet Count 194 K/uL (130-400); RDW Coefficient of Variation 14.2 % (11.5-14.5); RDW Standard Deviation 46.3 fL (36.4-46.3); Red Blood Count 5.12 M/uL (4.70-6.10); White Blood Count 9.85 K/ul (4.8-10.8)
--- NOTE | 2024-01-06 07:40 | Hospitalist Progress Note ---
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 Coronary artery disease (sequential 50% LAD stenosis in July 2018) Permanent atrial fibrillation (patient has refused anticoagulation) Aortic valve disease status post TAVR in November 2018 Essential hypertension Hyperlipidemia Elevated troponin, likely type II [place] in setting of demand ischemia from CHF exacerbation Echo from 01/04/2024 shows left ventricular systolic function is severely reduced with EF of 20%, there is mild concentric LVH, there is a bioprosthetic aortic valve, mild to moderate aortic regurgitation, moderate mitral regurgitation and also severe global hypokinesis of left ventricle noted Continue aspirin plus statin Continue diuresis with Lasix 40 mg IV twice daily-> change to po on 01/06 Continue Toprol-XL 50 mg daily Patient will benefit from GDMT: cardiology started entresto and jardiance (2) COPD (chronic obstructive pulmonary disease): Plan: Suspected pneumonia versus acute bronchitis, Continue ceftriaxone plus doxycycline for now COPD Patient's respiratory symptoms have improved after diuresis IV Lasix (3) Diabetes mellitus, type II: Plan: Type 2 diabetes mellitus Patient states he is not on insulin at home A1c 6.4 Diabetic diet Pharmacy managing glycemic control (4) BPH (benign prostatic hyperplasia): Plan: BPH Continue finasteride 5 mg daily Urine analysis without any signs of infection Patient without any symptoms at this point Plan 88-year-old male with past medical history of hypertension, coronary artery disease, type 2 diabetes mellitus, chronic systolic congestive heart failure with reduced ejection fraction, atrial fibrillation not on anticoagulation, aortic valve disease status post TAVR BPH, CKD stage III who presents to the hospital with elevated blood pressure readings and shortness of breath ongoing for approximately 3 weeks. CKD stage III Avoid nephrotoxic agents including NSAIDs CODE STATUS: Discussed with patient in great length, he wishes to be DNR/DNI. He does not want CPR and does not want intubation or mechanical ventilation. Patient has decisional making capacity DVT prophylaxis: Heparin subcutaneous twice daily PT/OT consults for discharge planning Admission and Anticipated Discharge Date Admission Date: January 04, 2024 Subjective Mr wilson has many concerns about his medications and questions about anticoagulation. Cardiology has discussed and pt still deciding Pt recognizes that he cannot go home alone, considering rehab Physical Exam Physical Exam: awake and alert, some VEGA cardiac sounds regular, in afib on monitor lungs are diminished at bases legs without edema Results & Data Results & Data Vital Signs (Past 12 Hours) Vital Signs Temp Pulse Pulse Resp BP Pulse Ox O2 Del Method 01/06/24 07:03 80 01/06/24 03:12 97.3 F L 81 20 113/70 94 Room Air 01/05/24 23:49 97.9 F 86 20 134/90 94 Room Air 01/05/24 19:47 97.3 F L 83 20 132/80 94 Room Air Laboratory Results chadvasc 3.2 % risk for VTE, 4.1% Hasbled review cbc review chemisty PG Care Time/CCT Total # of Minutes Spent Total Time Spent with Patient: Total time spent is greater than 50% in coordination of care (as documented) at patient's floor/unit and/or counseling patient: Coding Level of Care Code 93755 SUB INP/OBS CARE 3/50MIN Diagnoses Acute on chronic systolic (congestive) heart failure I50.23 Chronic obstructive pulmonary disease, unspecified COPD type J44.9 COPD type: unspecified COPD Type 2 diabetes mellitus without complication, with long-term current use of insulin E11.9; Z79.4 Diabetes mellitus complication status: without complication Diabetes mellitus vermin exterminator insulin use: with vermin exterminator use Benign prostatic hyperplasia without lower urinary tract symptoms N40.0 Lower urinary tract symptom presence: symptoms absent (2) COPD (chronic obstructive pulmonary disease) COPD type: unspecified COPD Qualified Code(s): J44.9 - Chronic obstructive pulmonary disease, unspecified (3) Diabetes mellitus, type II Diabetes mellitus complication status: without complication Diabetes mellitus vermin exterminator insulin use: with residential use Qualified Code(s): E11.9 - Type 2 diabetes mellitus without complications; Z79.4 - residential (current) use of insulin (4) BPH (benign prostatic hyperplasia) Lower urinary tract symptom presence: symptoms absent Qualified Code(s): N40.0 - Benign prostatic hyperplasia without lower urinary tract symptoms
[2024-01-06 07:49] LABS: Albumin Globulin Ratio 1.1 (0.9-2); Albumin Level 3.5 gm/dl (3.4-5.0); BUN Creatinine Ratio 20.2 (10-20); Bilirubin,Total 1.3 mg/dl (0.2-1.0); Calcium 9.3 mg/dl (8.6-10.3); Creatinine Clr Calc Pharmacy 52.4 ml/min; Globulin 3.1 gm/dl (2.5-4.0); Magnesium 1.9 mg/dl (1.7-2.4); Potassium 3.9 mmol/L (3.5-5.1); Total Protein 6.6 gm/dl (6.0-8.3)
[2024-01-06 08:07] LABS: Troponin I High Sensitivity 756.5 pg/ml (0-20)
[2024-01-06] MEDS: EMPAGLIFLOZIN 10 MG TAB PO SCH (08:26)
--- NOTE | 2024-01-06 08:39 | Pharmacy Report ---
Pharmacy Glycemic Sign Off Nt - Date of Service January 06, 2024 - Assessment & Plan ASSESSMENT: * Pharmacy was consulted by Dell Dan PA-C on 01/04/24 for glycemic control and to write orders per [facility] inpatient glycemic control protocol. * Major changes made by pharmacy to antidiabetic regimen include: * titration of SC bolus insulin * empagliflozin added by cardiology * Patient has been receiving/requiring 8 units of insulin per day for adequate glycemic control * BSGs ranging 105-139 mg/dl * Regimen has only required minor adjustments over the past 48hrs to achieve this level of control * Do not anticipate further changes in patient status that would quickly d eteriorate glycemic control (i.e. patient to be NPO for upcoming procedure, steroids tapering, starting tube feedings, etc). PLAN FOR INPATIENT GLYCEMIC CONTROL: No changes needed to current regimen. * Empagliflozin 10 mg PO daily (added by cardiology for HF/diabetes) * Continue to hold basal insulin * Continue NovoLog per scale ACHS/Q6hrs while NPO * Goal range = 110 140 mg/dl * CF = 30 mg/dl/unit * Hold carb ratio * Pharmacy is signing off of glycemic consult and will no longer be making adjustments to inpatient regimen. Please feel free to re-consult if needed. Thank you.
--- NOTE | 2024-01-06 16:28 | Cardiology Progress Note ---
Date of Service January 06, 2024 Assessment & Plan (1) Acute exacerbation of CHF (congestive heart failure): (2) Atrial fibrillation: (3) Aortic stenosis: (4) Coronary artery disease: (5) Nonischemic cardiomyopathy: (6) Mitral regurgitation: (7) Pulmonary hypertension: Plan 1. Acute decompensated left ventricular systolic failure: Much improved. Still affecting some diuresis. He is doing well on twice daily dosing of IV furosemide. No renal function available for review today. He can probably be tried on an oral regimen in anticipation for discharge. 2. Nonischemic cardiomyopathy: Severe. Started on Entresto and Jardiance. Continue metoprolol succinate. He would also be a good candidate for spironolactone at some point after we measure his renal function and potassium again. We did discuss the utility of an ICD. Likely limited benefit in his demographic, but he will think about it. 3. Left bundle branch block: No higher degree AV block. No symptoms of bradycardia. However, if he were to have an interest in a defibrillator a biventricular device would be appropriate in order to provide some resynchronization. This has the potential to improve LV function, reduce mortality and prevent hospitalizations. In the setting of permanent atrial fibrillation the benefit is attenuated. 4. Atrial fibrillation: Permanent. Adequate rate control. He seems to have excepted my recommendation for anticoagulation. I will start him on apixaban. I will stop his aspirin. 5. Aortic stenosis: Normal gradient across the bioprosthetic aortic valve. Mild to moderate aortic regurgitation. This can be followed over time. 6. Mitral regurgitation: Moderate. 7. Pulmonary hypertension: Due to combination of decompensated heart failure and likely pickwickian syndrome. Will continue to treat his cardiomyopathy and provide diuresis as needed. I will be away from the hospital for the next several days. If there are additional questions regarding his cardiac care please [facility] Admission and Anticipated Discharge Date Admission Date: January 04, 2024 Subjective This morning patient claimed feeling well. Breathing has improved significantly. No breathing difficulty at rest. Minimal ambulation. No chest pain or sense of palpitation. Review of Systems Review of Systems: Per HPI Physical Exam Physical Exam: The patient is alert and oriented. Mood and affect appeared normal. He answered all questions appropriately. Morbidly obese HEENT: Pupils are equal and reactive to light and accommodation. Extraocular movements are intact. The sclerae are anicteric. Neuro: Cranial nerves intact Lungs: Clear to auscultation bilaterally. He has good air movement without use of accessory muscles. No rales wheezes or rhonchi. Cardiac: Heart demonstrates an irregular rhythm but normal rate. Normal S1 and S2. No murmurs on examination. Pulses: The patient has palpable radial pulses bilaterally that are equal in intensity Extremities: There was no evidence of hypoperfusion. There is no cyanosis or clubbing. Minimal lower extremity edema Skin: I did not appreciate any rashes on examination today. Results & Data Vital Signs (Past 12 Hours) Vital Signs Temp Pulse Pulse Resp BP Pulse Ox O2 Del Method 01/06/24 15:47 68 01/06/24 12:02 36.7 C 77 18 123/85 95 Room Air 01/06/24 08:13 36.3 C L 83 20 140/89 96 Room Air 01/06/24 07:03 80 Laboratory Results Abnormal Lab Results 01/05/24 01/05/24 01/06/24 17:04 20:02 07:00 WBC 9.85 RBC 5.12 Hgb 15.2 Hct 46.1 MCV 90.0 MCH 29.7 MCHC 33.0 RDW Std Deviation 46.3 RDW Coeff of Tyson 14.2 Plt Count 194 MPV 11.7 Sodium 138 Potassium 3.9 Chloride 100 Carbon Dioxide 30 Anion Gap 8 BUN 23 Creatinine 1.14 Est Cr Clr Drug Dosing 52.4 eGFR 62.25 BUN/Creatinine Ratio 20.2 H Glucose 103 H POC Glucose 116 H 112 H Calcium 9.3 Magnesium 1.9 Total Bilirubin 1.3 H AST 39 ALT 27 Alkaline Phosphatase 55 Troponin I High Sens 756.5 H* D Total Protein 6.6 Albumin 3.5 Globulin 3.1 Albumin/Globulin Ratio 1.1 01/06/24 01/06/24 01/06/24 07:57 11:50 12:49 WBC RBC Hgb Hct MCV MCH MCHC RDW Std Deviation RDW Coeff of Tyson Plt Count MPV Sodium Potassium Chloride Carbon Dioxide Anion Gap BUN Creatinine Est Cr Clr Drug Dosing eGFR BUN/Creatinine Ratio Glucose POC Glucose 108 H 140 H Calcium Magnesium Total Bilirubin AST ALT Alkaline Phosphatase Troponin I High Sens 582.3 H* D Total Protein Albumin Globulin Albumin/Globulin Ratio PG Care Time/CCT Total # of Minutes Spent Total Time Spent with Patient: Total time spent is greater than 50% in coordination of care (as documented) at patient's floor/unit and/or counseling patient: Coding Level of Care Code 51291 SUB INP/OBS CARE MIN Diagnoses Acute exacerbation of CHF (congestive heart failure) I50.9 Atrial fibrillation I48.91 Aortic stenosis I35.0 Cardiac valve disease etiology: etiology unspecified Coronary artery disease I25.119 Associated angina: with unspecified angina Coronary Disease-Associated Artery/Lesion type: unspecified vessel or lesion type [place] vs. transplanted heart: unspecified whether [place] or transplanted heart Nonischemic cardiomyopathy I42.8 Mitral regurgitation I34.0 Pulmonary hypertension I27.20 (3) Aortic stenosis Cardiac valve disease etiology: etiology unspecified Qualified Code(s): I35.0 - Nonrheumatic aortic (valve) stenosis (4) Coronary artery disease Associated angina: with unspecified angina Coronary Disease-Associated Artery/Lesion type: unspecified vessel or lesion type [place] vs. transplanted heart: unspecified whether [place] or transplanted heart Qualified Code(s): I25.119 - Atherosclerotic heart disease of [place] coronary artery with unspecified angina pectoris
[2024-01-06] MEDS: APIXABAN 5 MG TABLET PO SCH (20:27)
[2024-01-07] MEDS: INFLUENZA VACC TS2024-25(65y+)/PF (IIV3) 0.5mL Syr IM ONE (08:01)
[2024-01-07 09:51] LABS: Albumin Globulin Ratio 1.3 (0.9-2); Albumin Level 3.6 gm/dl (3.4-5.0); BUN Creatinine Ratio 21.3 (10-20); Bilirubin,Total 1.2 mg/dl (0.2-1.0); Calcium 9.3 mg/dl (8.6-10.3); Creatinine Clr Calc Pharmacy 39.8 ml/min; Globulin 2.8 gm/dl (2.5-4.0); Magnesium 1.8 mg/dl (1.7-2.4); Potassium 3.9 mmol/L (3.5-5.1); Total Protein 6.4 gm/dl (6.0-8.3)
--- NOTE | 2024-01-07 14:22 | Hospitalist Progress Note ---
Date of Service January 07, 2024 Assessment & Plan (1) Acute on chronic systolic (congestive) heart failure: Plan: 88-year-old male with h/o HTN, CAD, DM 2, HFrEF, atrial fib not on anticoagulation, s/p TAVR, BPH, and CKD stage III who presents to the hospital with accelerated HTN and SOB x 3 weeks #Acute on chronic HFrEF with EF 20% (previously 30-35%)-nonischemic #CAD (sequential 50% LAD stenosis in July 2018) #Aortic valve disease status post TAVR in November 2018 #Essential hypertension #Hyperlipidemia #Elevated troponin, likely type II [place] in setting of demand ischemia from CHF exacerbation Outpatient casino runner is Dr. Keegan Morris Echo 01/04/2024 w/ LVEF severely reduced with EF of 20%, mild concentric LVH, bioprosthetic aortic valve, mild to moderate AI, moderate MR, and severe global hypokinesis of left ventricle, pulmonary hypertension It appears patient has not really been on Lasix for some time-noncompliance Last cardiology visit note is from 09/19/2021. Appreciate cardiology consultation during this hospitalization Troponin did peak at 756, but no ischemic changes on ECG, no chest pain, and with global hypokinesis of LV on echocardiogram-demand ischemia in the setting o f heart failure Diuresed with IV Lasix, and started on Entresto (discontinued home losartan) and Jardiance. Weight is down at least 4 kg and lower extremity edema improving, shortness of breath resolved However, creatinine increased to 1.5-hold further IV Lasix for now and resume as able to orally on 01/07 Continue aspirin, statin I/O monitoring, daily weights, low-sodium diet Continue Toprol-XL 50 mg daily for blood pressure and heart rate control as well as for heart failure Consider adding on spironolactone if blood pressure and renal function can tolerate in the future Follow-up with cardiology as an outpatient Continue to follow on telemetry-cardiology reports that ICD may not be of benefit to his demographic but will still consider in the future Follow BMP, magnesium and keep electrolytes replete (2) Acute kidney injury: Plan: ZOHAIB on CKD stage III Creatinine bumped up to 1.5 after starting Jardiance, Entresto, and receiving twice daily IV Lasix Hold IV Lasix for now but can continue Jardiance and Entresto-it is expected that the creatinine will rise slightly with starting these medications He has diuresed quite a bit Follow BMP Avoid nephrotoxic agents and renally dose medications when necessary Holding scheduled dose of potassium chloride-dose daily as needed (3) COPD (chronic obstructive pulmonary disease): Plan: Suspected pneumonia versus acute bronchitis/COPD-no supplemental O2 needed Reported sputum production and cough prior to admission but no fevers, procalcitonin negative, but did have mild leukocytosis on admission Chest x-ray on admission and repeated CXR with a PA and LAT view on 01/04 both with LLL infiltrate and small effusions Continue ceftriaxone plus doxycycline and convert to oral antibiotics prior to discharge Follow chest x-ray in 3 to 4 weeks to ensure resolution of infiltrate (4) Permanent atrial fibrillation: Plan: Patient has refused anticoagulation in the past, but is now agreeable and cardiology started him on apixaban As creatinine up to 1.5, renally dose Eliquis 2.5 Mg p.o. twice daily Can increase Eliquis back to 5 Mg p.o. twice daily once renal function improves Follow on telemetry Continue metoprolol for rate control Plan Chronic medical problems: BPH- Continue finasteride 5 mg daily UA without any signs of infection Patient without any symptoms at this point DM2-Patient states he is not on insulin at home, Hgb A1c 6.4% Diabetic diet Pharmacy managing glycemic control Microscopic hematuria-UA here with 3+ blood and with RBCs-follow this in the future and refer to urology if ongoing CODE STATUS: Discussed with patient in great length, he wishes to be DNR/DNI. He does not want CPR and does not want intubation or mechanical ventilation. Patient has decisional making capacity DVT prophylaxis: Eliquis Disposition-improving, approaching time for discharge if renal function improves. PT/OT recommending rehab and case management has made referral to [facility] Admission and Anticipated Discharge Date Admission Date: January 04, 2024 Subjective Patient reports feeling better than when he came in, not short of breath anymore. Struggling to have a bowel movement today. Had a small 1 but it was very difficult and hard to push out. He is making urine. Denies chest pain. Telemetry with atrial fibrillation with rates in the 80s to 100s Physical Exam Constitutional: WD/WN, vitals as above + obese Respiratory: normal respiratory effort; no cough Auscultation: + crackles (Mild bibasilar); no rhonchi and no wheezes Cardiovascular: Rate/Rhythm: regular rate and + irregularly irregular Heart Sounds: no murmur Extremities: + edema (1+ pitting edema of the legs to the thighs bilaterally) Gastrointestinal (Abdomen): normal bowel sounds, soft, nontender, no hepatosplenomegaly Results & Data Results & Data Vital Signs (Past 12 Hours) Vital Signs Temp Pulse Resp BP Pulse Ox O2 Del Method 01/07/24 07:51 36.3 C L 85 16 117/69 92 Room Air 01/07/24 07:25 Room Air 01/07/24 03:43 36.2 C L 85 16 93/67 L 95 Room Air Laboratory Results BMP, magnesium, LFTs reviewed PG Care Time/CCT Total # of Minutes Spent Total Time Spent with Patient: Total time spent is greater than 50% in coordination of care (as documented) at patient's floor/unit and/or counseling patient: Coding Level of Care Code 99702 SUB INP/OBS CARE 2/35MIN Diagnoses Acute on chronic systolic (congestive) heart failure I50.23 Acute kidney injury N17.9 Chronic obstructive pulmonary disease, unspecified COPD type J44.9 COPD type: unspecified COPD Permanent atrial fibrillation I48.2 (3) COPD (chronic obstructive pulmonary disease) COPD type: unspecified COPD Qualified Code(s): J44.9 - Chronic obstructive pulmonary disease, unspecified
[2024-01-07] MEDS: DOCUSATE SODIUM/SENNA 50/8.6MG TAB PO SCH (15:14)
[2024-01-07] MEDS: bisacodyL 10 MG SUPP PR STA (15:14)
[2024-01-07] MEDS: APIXABAN 2.5 MG TAB PO SCH (21:45)
[2024-01-08 06:12] LABS: BUN Creatinine Ratio 22.8 (10-20); Calcium 9.2 mg/dl (8.6-10.3); Creatinine Clr Calc Pharmacy 43.9 ml/min; Potassium 4.6 mmol/L (3.5-5.1)
[2024-01-08] MEDS: FUROSEMIDE 20 MG TAB PO SCH (08:59)
--- NOTE | 2024-01-08 13:29 | Hospitalist Progress Note ---
Date of Service January 08, 2024 Assessment & Plan (1) Acute on chronic systolic (congestive) heart failure: Plan: 88-year-old male with h/o HTN, CAD, DM 2, HFrEF, atrial fib not on anticoagulation, s/p TAVR, BPH, and CKD stage III who presents to the hospital with accelerated HTN and SOB x 3 weeks #Acute on chronic HFrEF with EF 20% (previously 30-35%)-nonischemic #CAD (sequential 50% LAD stenosis in July 2018) #Aortic valve disease status post TAVR in November 2018 #Essential hypertension #Hyperlipidemia #Elevated troponin, likely type II NE in setting of demand ischemia from CHF exacerbation Outpatient broker assistant is Dr. Keegan Morris Echo 01/04/2024 w/ LVEF severely reduced with EF of 20%, mild concentric LVH, bioprosthetic aortic valve, mild to moderate AI, moderate MR, and severe global hypokinesis of left ventricle, pulmonary hypertension It appears patient has not really been on Lasix for some time-noncompliance Last cardiology visit note is from 09/19/2021. Appreciate cardiology consultation during this hospitalization Troponin did peak at 756, but no ischemic changes on ECG, no chest pain, and with global hypokinesis of LV on echocardiogram-demand ischemia in the setting o f heart failure Diuresed with IV Lasix, and started on Entresto (discontinued home losartan) and Jardiance. Weight is down at least 4 kg and lower extremity edema improving, shortness of breath resolved Creatinine had bumped on 01/06. Lasix held Resume p.o. Lasix home dose 60 mg daily Recheck BMP in a.m. If creatinine stable and fluid does not reaccumulate, will be deemed medically stable for discharge Continue aspirin, statin I/O monitoring, daily weights, low-sodium diet Continue Toprol-XL 50 mg daily for blood pressure and heart rate control as well as for heart failure Consider adding on spironolactone if blood pressure and renal function can tolerate in the future Follow-up with cardiology as an outpatient Continue to follow on telemetry-cardiology reports that ICD may not be of benefit to his demographic but will still consider in the future Follow BMP, magnesium and keep electrolytes replete (2) Acute kidney injury: Plan: ZOHAIB on CKD stage III Creatinine bumped up to 1.5 after starting Jardiance, Entresto, and receiving twice daily IV Lasix IV Lasix was held on 01/06 but can continue Jardiance and Entresto-it is expected that the creatinine will rise slightly with starting these medications Today's creatinine is improved at 1.3 Resume home dose of p.o. Lasix at 60 mg daily Monitor BMP closely Avoid nephrotoxic agents and renally dose medications when necessary Holding scheduled dose of potassium chloride-dose daily as needed (3) COPD (chronic obstructive pulmonary disease): Plan: Suspected pneumonia versus acute bronchitis/COPD-no supplemental O2 needed Reported sputum production and cough prior to admission but no fevers, procalcitonin negative, but did have mild leukocytosis on admission Chest x-ray on admission and repeated CXR with a PA and LAT view on 01/04 both with LLL infiltrate and small effusions Continue ceftriaxone plus doxycycline and convert to oral antibiotics prior to discharge Follow chest x-ray in 3 to 4 weeks to ensure resolution of infiltrate (4) Permanent atrial fibrillation: Plan: Patient has refused anticoagulation in the past, but is now agreeable and cardiology started him on apixaban As creatinine up to 1.5, renally dose Eliquis 2.5 Mg p.o. twice daily Can increase Eliquis back to 5 Mg p.o. twice daily once renal function improves Follow on telemetry Continue metoprolol for rate control Plan Chronic medical problems: BPH- Continue finasteride 5 mg daily UA without any signs of infection Patient without any symptoms at this point DM2-Patient states he is not on insulin at home, Hgb A1c 6.4% Diabetic diet Pharmacy managing glycemic control Microscopic hematuria-UA here with 3+ blood and with RBCs-follow this in the future and refer to urology if ongoing CODE STATUS: Discussed with patient in great length, he wishes to be DNR/DNI. He does not want CPR and does not want intubation or mechanical ventilation. Patient has decisional making capacity DVT prophylaxis: Eliquis Disposition-improving, approaching time for discharge if renal function stable. PT/OT recommending rehab and case management has made referral to [facility]. Patient is wanting to go home. PT/OT will need to reevaluate Admission and Anticipated Discharge Date Admission Date: January 04, 2024 Subjective Patient patient was seen and examined at 10:25 AM. He says that he is feeling well overall. His leg edema has improved significantly. He is not short of breath. Review of Systems Review of Systems: All systems reviewed & are unremarkable except as noted in Subjective Physical Exam Physical Exam: General: Awake, conversant. Frail looking elderly obese patient Heart: S1, S2/regular rate and rhythm, no murmur rubs or gallops Lungs: Clear to auscultation bilaterally. Normal effort Abdomen: Soft/nontender/nondistended. No hepatosplenomegaly Extremities: No clubbing/cyanosis. No edema Behavior: Appropriate, cooperative Results & Data Results & Data Vital Signs (Past 12 Hours) Vital Signs Temp Pulse Pulse Resp BP Pulse Ox O2 Del Method 01/08/24 11:26 36.8 C 86 18 114/88 96 Room Air 01/08/24 07:56 Room Air 01/08/24 07:25 36.4 C L 84 18 138/86 94 Room Air 01/08/24 07:08 80 01/08/24 03:35 36.5 C 74 18 109/71 94 Room Air Laboratory Results Abnormal lab results 01/07/24 01/07/24 01/08/24 Range/Units 17:47 20:32 05:18 BUN 31 H (6-23) mg/dl BUN/Creatinine Ratio 22.8 H (10-20) Glucose 116 H (70-99(Fasting)) mg/dl POC Glucose 103 H 130 H (70-99) mg/dl 01/08/24 01/08/24 Range/Units 08:13 12:07 BUN (6-23) mg/dl BUN/Creatinine Ratio (10-20) Glucose (70-99(Fasting)) mg/dl POC Glucose 107 H 133 H (70-99) mg/dl PG Care Time/CCT Total # of Minutes Spent Total Time Spent with Patient: Total time spent is greater than 50% in coordination of care (as documented) at patient's floor/unit and/or counseling patient: Coding Level of Care Code 89137 SUB INP/OBS CARE 2/35MIN Diagnoses Acute on chronic systolic (congestive) heart failure I50.23 Acute kidney injury N17.9 Chronic obstructive pulmonary disease, unspecified COPD type J44.9 COPD type: unspecified COPD Permanent atrial fibrillation I48.2 (3) COPD (chronic obstructive pulmonary disease) COPD type: unspecified COPD Qualified Code(s): J44.9 - Chronic obstructive pulmonary disease, unspecified
[2024-01-09 06:53] LABS: Creatinine Clr Calc Pharmacy 40.1 ml/min; Potassium 4.4 mmol/L (3.5-5.1)
--- NOTE | 2024-01-09 14:35 | Hospitalist Progress Note ---
Date of Service January 09, 2024 Assessment & Plan (1) Acute on chronic systolic (congestive) heart failure: Plan: 88-year-old male with h/o HTN, CAD, DM 2, HFrEF, atrial fib not on anticoagulation, s/p TAVR, BPH, and CKD stage III who presents to the hospital with accelerated HTN and SOB x 3 weeks #Acute on chronic HFrEF with EF 20% (previously 30-35%)-nonischemic #CAD (sequential 50% LAD stenosis in July 2018) #Aortic valve disease status post TAVR in November 2018 #Essential hypertension #Hyperlipidemia #Elevated troponin, likely type II MT in setting of demand ischemia from CHF exacerbation Outpatient wire mesh gate assembler is Dr. Keegan Morris Echo 01/04/2024 w/ LVEF severely reduced with EF of 20%, mild concentric LVH, bioprosthetic aortic valve, mild to moderate AI, moderate MR, and severe global hypokinesis of left ventricle, pulmonary hypertension It appears patient has not really been on Lasix for some time-noncompliance Last cardiology visit note is from 09/19/2021. Appreciate cardiology consultation during this hospitalization Troponin did peak at 756, but no ischemic changes on ECG, no chest pain, and with global hypokinesis of LV on echocardiogram-demand ischemia in the setting o f heart failure Diuresed with IV Lasix, and started on Entresto (discontinued home losartan) and Jardiance. Weight is down at least 4 kg and lower extremity edema improving, shortness of breath resolved Creatinine had bumped on 01/06. Lasix held. Resume p.o. Lasix home dose 60 mg daily on 01/07 Today 01/08, his blood pressure is low and his creatinine is 1.4 Hold p.o. Lasix again today Recheck BMP in a.m. Continue aspirin, statin I/O monitoring, daily weights, low-sodium diet Continue Toprol-XL 50 mg daily for blood pressure and heart rate control as well as for heart failure Consider adding on spironolactone if blood pressure and renal function can tolerate in the future Follow-up with cardiology as an outpatient Continue to follow on telemetry-cardiology reports that ICD may not be of benefit to his demographic but will still consider in the future. Patient had a 28 beat run of V. tach on 01/06. His K and mag are in acceptable range. Already on metoprolol. Spoke to wire mesh gate assembler who did not think amiodarone was needed since his rate was not super high during the nonsustained V. tach. Patient will continue to talk to cardiology about considering AICD near future Follow BMP, magnesium and keep electrolytes replete (2) Acute kidney injury: Plan: ZOHAIB on CKD stage III Creatinine bumped up to 1.5 after starting Jardiance, Entresto, and receiving twice daily IV Lasix IV Lasix was held on 01/06 but can continue Jardiance and Entresto-it is expected that the creatinine will rise slightly with starting these medications On 01/08, creatinine had improved to 1.3 home dose of p.o. Lasix at 60 mg daily was given Today creatinine is up at 1.4 and the patient was hypotensive Hold Lasix Patient says that he had vomited last night soon after he got his p.m. medications. Doxycycline could be the culprit. Will discontinue. Monitor BMP closely Avoid nephrotoxic agents and renally dose medications when necessary Holding scheduled dose of potassium chloride-dose daily as needed (3) COPD (chronic obstructive pulmonary disease): Plan: Suspected pneumonia versus acute bronchitis/COPD-no supplemental O2 needed Reported sputum production and cough prior to admission but no fevers, procalcitonin negative, but did have mild leukocytosis on admission Chest x-ray on admission and repeated CXR with a PA and LAT view on 01/04 both with LLL infiltrate and small effusions Continue ceftriaxone plus doxycycline and convert to oral antibiotics prior to discharge. Discontinue doxycycline due to vomiting Follow chest x-ray in 3 to 4 weeks to ensure resolution of infiltrate (4) Permanent atrial fibrillation: Plan: Patient has refused anticoagulation in the past, but is now agreeable and cardiology started him on apixaban As creatinine up to 1.5, renally dose Eliquis 2.5 Mg p.o. twice daily Can increase Eliquis back to 5 Mg p.o. twice daily once renal function improves Follow on telemetry Continue metoprolol for rate control Plan Chronic medical problems: BPH- Continue finasteride 5 mg daily UA without any signs of infection Patient without any symptoms at this point DM2-Patient states he is not on insulin at home, Hgb A1c 6.4% Diabetic diet Pharmacy managing glycemic control Microscopic hematuria-UA here with 3+ blood and with RBCs-follow this in the future and refer to urology if ongoing CODE STATUS: Discussed with patient in great length, he wishes to be DNR/DNI. He does not want CPR and does not want intubation or mechanical ventilation. Patient has decisional making capacity DVT prophylaxis: Ebonyquis Disposition-improving, approaching time for discharge if renal function stable and blood pressure stable. PT/OT recommending rehab and case management has made referral to [facility]. Admission and Anticipated Discharge Date Admission Date: January 04, 2024 Subjective Patient says that he vomited taking doxycycline for 2 nights in the row. He does not want to take doxycycline anymore. His blood pressure this morning was in the 80s. Lasix was held this morning. He denies any dizziness or lightheadedness. He denies shortness of breath. He says that his leg swelling has resolved Review of Systems Review of Systems: All systems reviewed & are unremarkable except as noted in Subjective Physical Exam Physical Exam: General: Awake, conversant. Frail looking elderly obese patient Heart: S1, S2/regular rate and rhythm, no murmur rubs or gallops Lungs: Clear to auscultation bilaterally. Normal effort Abdomen: Soft/nontender/nondistended. No hepatosplenomegaly Extremities: No clubbing/cyanosis. No edema Behavior: Appropriate, cooperative Results & Data Results & Data Vital Signs (Past 12 Hours) Vital Signs Temp Pulse Pulse Resp BP BP Pulse Ox 01/09/24 11:41 36.4 C L 91 H 18 135/82 96 01/09/24 07:31 36.4 C L 86 18 88/60 L 86/64 L 97 01/09/24 07:21 89 01/09/24 03:47 36.5 C 96 H 18 107/70 95 O2 Del Method 01/09/24 11:41 Room Air 01/09/24 07:31 Room Air 01/09/24 07:21 01/09/24 03:47 Room Air Laboratory Results Abnormal lab results 01/08/24 01/08/24 01/09/24 Range/Units 17:12 20:08 06:26 BUN 35 H (6-23) mg/dl Creatinine 1.46 H (0.6-1.4) mg/dl BUN/Creatinine Ratio 24.0 H (10-20) Glucose 119 H (70-99(Fasting)) mg/dl POC Glucose 114 H 145 H (70-99) mg/dl 01/09/24 01/09/24 Range/Units 08:15 11:43 BUN (6-23) mg/dl Creatinine (0.6-1.4) mg/dl BUN/Creatinine Ratio (10-20) Glucose (70-99(Fasting)) mg/dl POC Glucose 107 H 123 H (70-99) mg/dl PG Care Time/CCT Total # of Minutes Spent Total Time Spent with Patient: Total time spent is greater than 50% in coordination of care (as documented) at patient's floor/unit and/or counseling patient: Coding Level of Care Code 62757 SUB INP/OBS CARE 2/35MIN Diagnoses Acute on chronic systolic (congestive) heart failure I50.23 Acute kidney injury N17.9 Chronic obstructive pulmonary disease, unspecified COPD type J44.9 COPD type: unspecified COPD Permanent atrial fibrillation I48.2 (3) COPD (chronic obstructive pulmonary disease) COPD type: unspecified COPD Qualified Code(s): J44.9 - Chronic obstructive pulmonary disease, unspecified
[2024-01-10 06:23] LABS: Calcium 9.1 mg/dl (8.6-10.3); Potassium 4.1 mmol/L (3.5-5.1)
[2024-01-10 06:29] LABS: BUN Creatinine Ratio 27.9 (10-20)
[2024-01-10] MEDS: FUROSEMIDE 20 MG TAB PO SCH (08:49)
[2024-01-10] MEDS: APIXABAN 5 MG TABLET PO SCH (09:18)
--- NOTE | 2024-01-10 13:40 | Hospitalist Progress Note ---
Date of Service January 10, 2024 Assessment & Plan (1) Acute on chronic systolic (congestive) heart failure: Plan: 88-year-old male with h/o HTN, CAD, DM 2, HFrEF, atrial fib not on anticoagulation, s/p TAVR, BPH, and CKD stage III who presents to the hospital with accelerated HTN and SOB x 3 weeks #Acute on chronic HFrEF with EF 20% (previously 30-35%)-nonischemic #CAD (sequential 50% LAD stenosis in July 2018) #Aortic valve disease status post TAVR in November 2018 #Essential hypertension #Hyperlipidemia #Elevated troponin, likely type II MS in setting of demand ischemia from CHF exacerbation Outpatient [employer] dean is Dr. Keegan Morris Echo 01/04/2024 w/ LVEF severely reduced with EF of 20%, mild concentric LVH, bioprosthetic aortic valve, mild to moderate AI, moderate MR, and severe global hypokinesis of left ventricle, pulmonary hypertension It appears patient has not really been on Lasix for some time-noncompliance Last cardiology visit note is from 09/19/2021. Appreciate cardiology consultation during this hospitalization Troponin did peak at 756, but no ischemic changes on ECG, no chest pain, and with global hypokinesis of LV on echocardiogram-demand ischemia in the setting of heart failure Diuresed with IV Lasix, and started on Entresto (discontinued home losartan) and Jardiance. Weight is down at least 4 kg and lower extremity edema improving, shortness of breath resolved Creatinine had bumped on 01/06. Lasix held. Resume p.o. Lasix home dose 60 mg daily on 01/07 01/08, his blood pressure was low and his creatinine was 1.4 Held p.o. Lasix again on 01/08 Creatinine is stable today. Resumed p.o. Lasix home dose of 60 mg today. Continue aspirin, statin I/O monitoring, daily weights, low-sodium diet Continue Toprol-XL 50 mg daily for blood pressure and heart rate control as well as for heart failure Consider adding on spironolactone if blood pressure and renal function can tolerate in the future Follow-up with cardiology as an outpatient Continue to follow on telemetry-cardiology reports that ICD may not be of benefit to his demographic but will still consider in the future. Patient had a 28 beat run of V. tach on 01/06. His K and mag are in acceptable range. Already on metoprolol. Spoke to applied science and technologies dean who did not think amiodarone was needed since his rate was not super high during the nonsustained V. tach. Patient will continue to talk to cardiology about considering AICD near future Follow BMP, magnesium and keep electrolytes replete (2) Acute kidney injury: Plan: ZOHAIB on CKD stage III Creatinine bumped up to 1.5 after starting Jardiance, Entresto, and receiving twice daily IV Lasix IV Lasix was held on 01/06 but can continue Jardiance and Entresto-it is expected that the creatinine will rise slightly with starting these medications On 01/07, creatinine had improved to 1.3 home dose of p.o. Lasix at 60 mg daily was given On 01/08 creatinine is up at 1.4 and the patient was hypotensive Held Lasix on 01/08 Patient says that he had vomited last night soon after he got his p.m. medications. Doxycycline could be the culprit. Doxycycline was discontinued Today creatinine was 1.2 Resume Lasix at 60 mg every morning Monitor BMP closely Avoid nephrotoxic agents and renally dose medications when necessary Holding scheduled dose of potassium chloride-dose daily as needed (3) COPD (chronic obstructive pulmonary disease): Plan: Suspected pneumonia versus acute bronchitis/COPD-no supplemental O2 needed Reported sputum production and cough prior to admission but no fevers, procalcitonin negative, but did have mild leukocytosis on admission Chest x-ray on admission and repeated CXR with a PA and LAT view on 01/04 both with LLL infiltrate and small effusions Continue ceftriaxone plus doxycycline and convert to oral antibiotics prior to discharge. Discontinue doxycycline due to vomiting Follow chest x-ray in 3 to 4 weeks to ensure resolution of infiltrate (4) Permanent atrial fibrillation: Plan: Patient has refused anticoagulation in the past, but is now agreeable and cardiology started him on apixaban Increased Eliquis dose back to 5 mg since renal function has improved Follow on telemetry Continue metoprolol for rate control Plan Chronic medical problems: BPH- Continue finasteride 5 mg daily UA without any signs of infection Patient without any symptoms at this point DM2-Patient states he is not on insulin at home, Hgb A1c 6.4% Diabetic diet Pharmacy managing glycemic control Microscopic hematuria-UA here with 3+ blood and with RBCs-follow this in the future and refer to urology if ongoing CODE STATUS: Discussed with patient in great length, he wishes to be DNR/DNI. He does not want CPR and does not want intubation or mechanical ventilation. Patient has decisional making capacity DVT prophylaxis: Eliquis Disposition-improving, approaching time for discharge if renal function stable and blood pressure stable. PT/OT recommending rehab and case management has made referral to [facility]. But today patient says that he does not wish to go to [facility]. He wishes to go home. He does not have good follow-up set up with PCP (needs new PCP established), cardiology, CHF clinic. Likely discharge 01/10 once follow-up established the patient is going home. Admission and Anticipated Discharge Date Admission Date: January 04, 2024 Subjective Patient was seen and examined at 9:25 AM today. He denies chest pain or shortness of breath. He feels well overall. He did not have any more vomiting since the doxycycline was discontinued. Review of Systems Review of Systems: All systems reviewed & are unremarkable except as noted in Subjective Physical Exam Physical Exam: General: Awake, conversant. Frail looking elderly obese patient Heart: S1, S2/regular rate and rhythm, no murmur rubs or gallops Lungs: Clear to auscultation bilaterally. Normal effort Abdomen: Soft/nontender/nondistended. No hepatosplenomegaly Extremities: No clubbing/cyanosis. No edema Behavior: Appropriate, cooperative Results & Data Results & Data Vital Signs (Past 12 Hours) Vital Signs Temp Pulse Pulse Resp BP BP Pulse Ox 01/10/24 11:16 36.5 C 92 H 16 121/84 95 01/10/24 08:01 92 H 01/10/24 07:49 01/10/24 07:33 36.5 C 85 16 126/85 94 01/10/24 03:54 36.4 C L 89 18 128/75 95 O2 Del Method 01/10/24 11:16 Room Air 01/10/24 08:01 01/10/24 07:49 Room Air 01/10/24 07:33 Room Air 01/10/24 03:54 Room Air Laboratory Results Abnormal lab results 01/09/24 01/09/24 01/10/24 Range/Units 17:25 20:16 05:22 Sodium 135 L (136-145) mmol/L BUN 34 H (6-23) mg/dl BUN/Creatinine Ratio 27.9 H (10-20) Glucose 108 H (70-99(Fasting)) mg/dl POC Glucose 135 H 177 H (70-99) mg/dl 01/10/24 01/10/24 Range/Units 08:11 11:54 Sodium (136-145) mmol/L BUN (6-23) mg/dl BUN/Creatinine Ratio (10-20) Glucose (70-99(Fasting)) mg/dl POC Glucose 106 H 121 H (70-99) mg/dl PG Care Time/CCT Total # of Minutes Spent Total Time Spent with Patient: Total time spent is greater than 50% in coordination of care (as documented) at patient's floor/unit and/or counseling patient: Coding Level of Care Code 73117 SUB INP/OBS CARE 2/35MIN Diagnoses Acute on chronic systolic (congestive) heart failure I50.23 Acute kidney injury N17.9 Chronic obstructive pulmonary disease, unspecified COPD type J44.9 COPD type: unspecified COPD Permanent atrial fibrillation I48.2 (3) COPD (chronic obstructive pulmonary disease) COPD type: unspecified COPD Qualified Code(s): J44.9 - Chronic obstructive pulmonary disease, unspecified
[2024-01-11 06:03] LABS: BUN Creatinine Ratio 26.8 (10-20); Calcium 9.2 mg/dl (8.6-10.3); Creatinine Clr Calc Pharmacy 42.5 ml/min; Potassium 4.2 mmol/L (3.5-5.1)
[2024-01-11 08:13] VITALS: TEMP 97.5; O2SAT 95
--- NOTE | 2024-01-11 10:47 | Discharge Summary ---
Date of Service January 11, 2024 Admission HPI Per Admitting Provider 88-year-old male presenting for elevated blood pressure reading at home, as well as shortness of breath. ED course: CBC with leukocytosis (10.85) neutrophil predominant (8.63), PT/INR WNL; VBG's WNL; CMP chloride 109, glucose 160, bilirubin 1.7; troponin 123.5, pending repeat; BNP 576; UA 1+ protein, 3+ blood, greater than 20 RBC, presence of hyaline cast, no signs of infection; CXR cardiomegaly with pulmonary edema, small bilateral pleural effusions with associated bibasilar opacities; EKG A-fib with RVR (110 bpm), QTc 500; provided with Lasix 40 mg IV in ED. Patient is a 8-year-old male PMHx A-fib, chronic heart failure, HTN, COPD, DMT2, and BPH presenting for elevated blood pressure readings at home as well as ongoing shortness of breath. Patient states that approximately 2 to 3 weeks ago he noted that he was having worsening shortness of breath, and associated productive cough with yellow sputum. States that the shortness of breath is worsened when laying flat, or with exertion. Does not utilize oxygen at home. Is not reporting any fevers or chills or additional known sick contacts. States that he is also noted that he had to buy new shoes because his "feet grew" and would no longer fit in the smaller sizes. Recently changed from size 10 to 12 within the past 3 weeks. States that he does not know if his legs are swollen, but he does not think that they are. Has been utilizing OTC Mucus Relief for cough, no additional medications. Associated constipation that comes and goes. Denies chest pain, palpitations, abdominal pain, nausea/vomiting/diarrhea, numbness/tingling, headache, dizziness, presyncopal episodes, or LUTS. Did not take any a.m. medications. Please see Dr. Gutierrez's attestation for adjustments/additions to treatment plan. Admission Exam Per Admitting Provider General: No acute distress Skin: Warm and dry Head: Normocephalic, atraumatic Eyes: PERRL, conjunctivae clear, sclera non-icteric ENT: External ear and ear canal without swelling, hard of hearing; nose atraumatic; ok dentition Neck: Supple, no LAD Cardio: Tachycardia, irregularly irregular rhythm, no M/G/R, S1 and S2 normal Resp: Lungs CTA in all lobes bilaterally, no wheezes, rales, or rhonchi, decreased breath sounds bilateral bases Abdomen: Soft, symmetric, nontender; No masses or hepatosplenomegaly MSK: No deformities, full ROM throughout; pulses palpable and equal; 1+ lower extremity pitting edema bilaterally. Neuro: Awake, alert; Sensation intact bilaterally; CN intact Psych: Appropriate mood and affect Patient's neighbor is in room at time of visit Principal Diagnosis Acute on chronic systolic congestive heart failure Nonischemic cardiomyopathy with HFrEF with 20% EF Acute on chronic kidney disease stage III Permanent A-fib Discharge Exam General: Awake, conversant. Frail looking elderly obese patient Heart: S1, S2/regular rate and rhythm, no murmur rubs or gallops Lungs: Clear to auscultation bilaterally. Normal effort Abdomen: Soft/nontender/nondistended. No hepatosplenomegaly Extremities: No clubbing/cyanosis. No edema Behavior: Appropriate, cooperative Discharge Data Allergies Allergy/AdvReac Type Severity Reaction Status Date / Time Iodinated Contrast Media Allergy Unknown HIVES Verified 08/27/22 10:07 amoxicillin [From Augmentin] Allergy Unknown Verified 08/27/22 10:07 clavulanic acid Allergy Unknown Verified 08/27/22 10:07 [From Augmentin] oxaprozin [From Daypro] Allergy Unknown Verified 08/27/22 10:07 sitagliptin [From Januvia] Allergy Unknown Verified 08/27/22 10:07 Consultations 01/04/24 12:42 ED Decision to Admit Stat 01/05/24 14:01 Consult Cardiology Routine 01/11/24 07:53 [facility] [place] CHF Program Referral Routine Ordered Studies Chest X-Ray 01/04/24 11:14 XR chest 1V portable CLINICAL HISTORY: Dyspnea COMPARISON STUDY: Chest radiograph July 28, 2019. Chest CT July 29, 2019. FINDINGS: A nonunited proximal right humeral fracture is incidentally noted. There is no pneumothorax. There are small bilateral pleural effusions. Cardiomegaly is unchanged. There is mild pulmonary edema. Hazy bibasilar opacities are present. IMPRESSION: Cardiomegaly with interstitial pulmonary edema and small bilateral pleural effusions with associated bibasilar opacities. ACT 112: Negative or not required by law. Electronically signed by: Krish Wilkinson M.D. 01/04/2024 11:43 AM Chest X-Ray 01/05/24 14:13 EXAM: Radiographs of the Chest 2 Views INDICATION: Shortness of breath. TECHNIQUE: Frontal and lateral views of the chest. COMPARISON: 07/29/2019 FINDINGS: Lungs and pleural spaces: Symmetrical pulmonary vascular congestion noted. Probable trace pleural effusions. Small infiltrate likely in the left base. No pneumothorax. Heart: Stable cardiomegaly. Mediastinum: Normal contour. Bones/joints: No fracture, erosion or dislocation. IMPRESSION: Probable CHF. Component of left basilar pneumonia not excluded. ACT 112: Negative or not required by law. Electronically signed by Love Jamison 01-05-2024 3:36 PM Hospital Course (1) Acute on chronic systolic (congestive) heart failure: 88-year-old male with h/o HTN, CAD, DM 2, HFrEF, atrial fib not on anticoagulation, s/p TAVR, BPH, and CKD stage III who presents to the hospital with accelerated HTN and SOB x 3 weeks #Acute on chronic HFrEF with EF 20% (previously 30-35%)-nonischemic #CAD (sequential 50% LAD stenosis in July 2018) #Aortic valve disease status post TAVR in November 2018 #Essential hypertension #Hyperlipidemia #Elevated troponin, likely type II LA in setting of demand ischemia from CHF exacerbation Outpatient agricultural service worker is Dr. Keegan Morris Echo 01/04/2024 w/ LVEF severely reduced with EF of 20%, mild concentric LVH, bioprosthetic aortic valve, mild to moderate AI, moderate MR, and severe global hypokinesis of left ventricle, pulmonary hypertension It appears patient has not really been on Lasix for some time-noncompliance Last cardiology visit note is from 09/19/2021. Appreciate cardiology consultation during this hospitalization Troponin did peak at 756, but no ischemic changes on ECG, no chest pain, and with global hypokinesis of LV on echocardiogram-demand ischemia in the setting of heart failure Diuresed with IV Lasix, and started on Entresto (discontinued home losartan) and Jardiance. Weight is down at least 4 kg and lower extremity edema improving, shortness of breath resolved Creatinine had bumped on 01/06. Lasix held. Resumed p.o. Lasix home dose 60 mg daily on 01/07 01/08, his blood pressure was low and his creatinine was 1.4 Held p.o. Lasix again on 01/08 Creatinine is stable 01/09. Resumed p.o. Lasix home dose of 60 mg today. Decided to dc him on Lasix 40mg po daily Continue aspirin, statin I/O monitoring, daily weights, low-sodium diet Continue Toprol-XL 50 mg daily for blood pressure and heart rate control as well as for heart failure Consider adding on spironolactone if blood pressure and renal function can tolerate in the future Follow-up with cardiology and CHF clinic as an outpatient Cardiology reports that ICD may not be of benefit to his demographic but will still consider in the future. Patient had a 28 beat run of V. tach on 01/06. His K and mag are in acceptable range. Already on metoprolol. Spoke to agricultural service worker who did not think amiodarone was needed since his rate was not super high during the nonsustained V. tach. Patient will continue to talk to cardiology about considering AICD near future (2) Acute kidney injury: ZOHAIB on CKD stage III Creatinine bumped up to 1.5 after starting Jardiance, Entresto, and receiving twice daily IV Lasix IV Lasix was held on 01/06 but can continue Jardiance and Entresto-it is expected that the creatinine will rise slightly with starting these medications On 01/07, creatinine had improved to 1.3 home dose of p.o. Lasix at 60 mg daily was given On 01/08 creatinine is up at 1.4 and the patient was hypotensive Held Lasix on 01/08 Patient says that he had vomited a few times soon after he got his p.m. medications. Doxycycline could be the culprit. Doxycycline was discontinued Decided to dc patient lasix 40mg po daily (3) COPD (chronic obstructive pulmonary disease): Suspected pneumonia versus acute bronchitis/COPD-no supplemental O2 needed Reported sputum production and cough prior to admission but no fevers, procalcitonin negative, but did have mild leukocytosis on admission Chest x-ray on admission and repeated CXR with a PA and LAT view on 01/04 both with LLL infiltrate and small effusions Continue ceftriaxone plus doxycycline and convert to oral antibiotics prior to discharge. Discontinue doxycycline due to vomiting Follow chest x-ray in 3 to 4 weeks to ensure resolution of infiltrate (4) Permanent atrial fibrillation: Patient has refused anticoagulation in the past, but is now agreeable and cardiology started him on apixaban Increased Eliquis dose back to 5 mg since renal function has improved Continue metoprolol for rate control Plan Chronic medical problems: BPH- Continue finasteride 5 mg daily UA without any signs of infection Patient without any symptoms at this point DM2-Patient states he is not on insulin at home, Hgb A1c 6.4% Diabetic diet Pharmacy managing glycemic control Microscopic hematuria-UA here with 3+ blood and with RBCs-follow this in the future and refer to urology if ongoing CODE STATUS: Discussed with patient in great length, he wishes to be DNR/DNI. He does not want CPR and does not want intubation or mechanical ventilation. Patient has decisional making capacity Disposition-PT/OT recommending rehab and case management has made referral to [facility]. But patient says that he does not wish to go to [facility]. He wishes to go home. I made sure patient has established f/u appointments with PCP, cardiology, CHF clinic. Home health established Total Time Total Time Spent Total Time Spent (In Minutes): 35 Discharge Plan Discharge Items Patient Disposition: Home - Home Health Services Reason For Visit: SOB, EDEMA, HTN Discharge Diagnosis: Acute on chronic systolic congestive heart failure Nonischemic cardiomyopathy with HFrEF with 20% EF Acute on chronic kidney disease stage III Permanent A-fib Activity: Resume your previous activity Non-emergency contact: Primary Care Provider Call non-emergency contact if: you have any medication questions and your symptoms worsen Follow-up/Referrals: Flori Gutierrez PA-C [Physician Professor Of Religious Studies] - 01/18/24 10:30 am () Mikki Strickland CRNP [Nurse Practitioner] - 01/14/24 10:00 am (Please arrive 15 minutes early. Also, scheduled new patient appt on March 21, 2024 @ 9:00am ) Diet: Carb Consistent or DM2 and Heart Healthy Addtl Attending Provider Instructions: Advised to follow-up with PCP in 1 week Advised to follow-up with agricultural service worker in 2 weeks Advised to follow-up with CHF clinic in 1 week Pending Studies at Discharge: No Stand-Alone Forms: My [employer] Medications and DC Order Prescriptions: New Jardiance 10 mg Tablet 10 mg PO DAILY 30 Days Qty: 30 0RF Entresto 24-26 mg Tablet 1 tab PO BID 30 Days Qty: 60 0RF Continued (DME) OneTouch Ultra Blue Test Strip Strip See Dose Instructions .ROUTE .MEDSUPPLY Qty: 100 3RF Dose Instruction: As directed Rx Instructions: Use twice daily as directed atorvastatin 40 mg tablet 40 mg PO DAILY Qty: 90 3RF Rx Instructions: pt thinks he still takes medication potassium chloride 20 mEq tablet extended release 20 meq PO DAILY Qty: 90 3RF finasteride 5 mg tablet 5 mg PO DAILY Qty: 90 1RF (DME) BD AutoShield Duo Pen Needle 30 gauge x 3/16" needle See Dose Instructions .ROUTE .MEDSUPPLY Qty: 100 3RF Dose Instruction: As directed Rx Instructions: use one daily--Dx: E11.9 Type 2 Diabetes Mellitus cholecalciferol (vitamin D3) 50 mcg (2,000 unit) capsule 50 mcg PO DAILY Qty: 90 1RF aspirin [Aspir-81] 81 mg Tablet,Delayed Release (Dr/Ec) 81 mg PO DAILY metoprolol succinate 50 mg tablet extended release 24 hr 50 mg PO DAILY Rx Instructions: TAKE ONE TABLET BY MOUTH DAILY Changed furosemide 40 mg tablet 40 mg PO QAM Qty: 135 3RF Discontinued losartan 25 mg tablet 25 mg PO DAILY Qty: 90 3RF Discharge Orders: Discharge Order- CHF (Routine); Ordered 01/11/24 Ordered By: Callie Bustos/Other Patient Handouts: A1C Admission Data Admit Date/Time: 01/04/24 13:16 Attending Provider: Callie Ayon Admit Provider: Dillon Gutierrez Primary Care Provider: PCP,NO Other Providers: Dillon Gutierrez; Nitin Wilson; [facility]; Flori Gut[facility]rez; [facility] Other Interventions: Discharge Summary Assessment (RN) Last Done: 01/11/24 10:36
[2024-01-11 11:20] VITALS: BP 119/81; RESP 18
[2024-01-11 16:48] VITALS: PULSE 85
== END 2024-01-11 17:41 | disposition home health service (06) | DRG 280 ==
LOC: ED 10:57 → 2W 13:16 → SUATTDRO 13:16 → 2W 15:56